=== PATIENT | male | born 1955 | race Hispanic/Latino ===

== ENCOUNTER 2024-12-03 11:43 | Outpatient (CLI) | payer MEDICARE, MEDICAID, SELFPAY ==
--- NOTE | ~2024-12-03 | XR_ITS ---
EXAM/ PROCEDURE: XR shoulder LT min 2V, XR shoulder RT min 2V - 12/03/2024 12:35 CDT HISTORY: 69 years old Male with S46.012A - Strain of muscle(s) and tendon(s) of the rotat... COMPARISON: None available TECHNIQUE: Three view(s) FINDINGS/ IMPRESSION: There are no fractures or dislocations.Joint space narrowing, subchondral sclerosis, subchondral cyst formation and osteophyte formation, compatible with moderate osteoarthritis, right greater than left . Chronic fracture versus os acromiale in the left acromioclavicular joint. Correlate with joint tender ness. Reviewed, dictated and finalized at location A.
--- OUTSIDE RECORDS SUMMARY | 2024-12-03 11:48 | XMS_ITS | Clinical Summary ---
Author Organization [facility] Address [address] [place] [address] Care Team Providers Care Theology Teacher Name Role Phone Antony Song MD Primary Care Provider [phone] Source Comments [facility] [employer],non-owned Affiliates and Associated Physician Practices is amultiple site organization consisting of ambulatory clinics and hospital sitesin [place], [place], [place] and [place]. This disclosure is being madepursuant to the Care Everywhere program and may not contain all information available regarding this patient. Last updated 18.[facility] Allergies Active Allergy Reactions Criticality Noted Date Comments Codeine Nausea and/or Vomiting High 05/09/2018 Hydrocodone Nausea and/or Vomiting High 05/09/2018 Medications * Be aware that medications may not be up to date on this document. Alwaysverify current medications with the patient. montelukast (SINGULAIR) 10 MG tablet montelukast 10 mg tablet Active albuterol (PROVENTIL;VENT RYAN) (2.5 MG/3ML) 0.083% nebulizer solution Inhale 2.5 mg by mouth every 4 hours as needed for Shortness of Breath or Wheezing 100 vial 0 Active albuterol HFA (PROVENTIL;VENT RYAN;PROAIR) 108 (90 Base) MCG/ACT inhaler Inhale 2 puffs by mouth every 4 hours as needed for Shortness of Breath, Wheezing or Cough 1 Inhaler 0 Active beclomethasone HFA (QVAR REDIHALER HFA) 80 MCG/ACT inhaler Inhale 1 puff by mouth 2 times daily 1 Inhaler 0 Active Active Problems Problem Noted Date Diagnosed Date Allergic rhinitis 07/13/2019 Knee pain 07/13/2019 Obesity 07/13/2019 Smoker 07/13/2019 Standard chest x-ray abnormal 07/13/2019 Tinea pedis 07/13/2019 Dental abscess 01/07/2019 Facial cellulitis 01/07/2019 Subacromial impingement of left shoulder 019 Social History Tobacco Use Types Packs/Day Years Used Date Smoking Tobacco: Former Smokeless Tobacco: Never Sex and Gender Information Value Date Recorded Sex Assigned at Not on file Legal 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 Gender Identity Not on file Sexual Orientation Not on file Last Filed Vital Signs Vital Sign Reading Time Taken Comments Blood Pressure 140/80 07/13/2019 3:45 PM TOOL 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 Pulse 105 07/13/2019 3:45 PM TOOL 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 Temperature 37.5 C (99.5 F) 07/13/2019 3:45 PM 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 Respiratory Rate 19 07/13/2019 3:45 PM TOOL 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 Oxygen Saturation 95% 07/13/2019 3:45 PM TOOL 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 Inhaled Oxygen Concentration - - Weight 122.5 kg (270 lb) 07/13/2019 3:45 PM 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 Height 182.9 cm (6') 07/13/2019 3:45 PM 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 Body Mass Index 36.62 07/13/2019 3:45 PM 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 Plan of Treatment Health Maintenance Due Date Last Done Comments COLOGUARD (AGES 45-75) - COL ON CA SCREENING 1957 COLON MONITORING 1957 COLONOSCOPY - COLON CA SCREENING 1957 CT COLONOGRAPHY - COLON CA SCREENING 1957 Colorectal Cancer Screening 1957 FIT - COLON CA SCREENING 1957 FLEX SIG - COLON CA SCREENING 1957 LIPID TESTING 1957 HEPATITIS C SCREENING 07/02/1975 DTAP/TDAP/TD VACCINES (1 - Tdap) 1976 PNEUMOCOCCAL VACCINE 50+ (1 of 1 - PCV) 2007 ZOSTER VACCINE (1 of 2) 2007 SCREENING FOR DIABETES 08/05/2021 9, 08/05/2018 AAA SCREENING 2022 COVID-19 VACCINE (1 - 2023-2 5 season) 2024 DEPRESSION SCREENING 05/14/2024 INFLUENZA VACCINE (#1) 2025 Respiratory Syncytial Virus (RSV) Vaccine Pt: or over 60 yrs (1 - 1-dose 75+ series) 2032 HEPATITIS B VACCINE Aged Out No longe r eligible based on patient's age to complete this topic HIB VACCINE Aged Out No longer eligi ble based on patient's age to complete this topic HPV VACCINE Aged Out No longer eligi ble based on patient's age to complete this topic MENINGOCOCCAL (Group B) VACCINE SHARED DECISION-MAKING Aged Out No longer eligible based on patient's age to complete this topic MENINGOCOCCAL GROUPS A/C/Y/W VACCINE Aged Out No longer eligible b ased on patient's age to complete this topic Insurance Care Teams Theology Teacher Relationship Specialty Start Date End Date Antony oSng MD [address] [place] [id number] PCP - General Family Medicine 07/06/19
--- OUTSIDE RECORDS SUMMARY | 2024-12-03 11:48 | XMS_ITS | Encounter Summary ---
Author Organization [facility] Address [address] [place] [address] Care Team Providers Care Shellfish Meat Separator Operator Name Role Phone Antony Song MD Primary Care Provider [phone] Miscellaneous, Not In File Primary Care Provider Unavailable Antony Song MD Primary Care Provider [phone] Maurisio Sevilla MD Primary Care Provider [phone] Antony Song MD Unavailable [phone] Kevon Hogan MD Unavailable [phone] Eddie Baker MD Primary Care Provider [phone] Eddie Baker MD Primary Care Provider [phone] Julio Gaston MD Primary Care Provider [phone] Rosette Florence DO Unavailable [phone] Rusty Lam MD Unavailable [phone] Maria De Jesus Kaur PT Unavailable Unavailable Rickie Aleman MD Primary Care Provider [phone] Reason for Visit * Reason Onset Date Comments Scheduling Appointments 11/30/2020 no answdeena r to confirm injection Encounter Details Date Type Department Care Team (Late st Contact Info) Description 11/30/2020 Telephone [facility] [address] [place] [address] Paula Palma RT Scheduling Appointments (no answer to confirm injection) Social History Tobacco Use Types Packs/Day Years Used Date Smoking Tobacco: Former Cigarettes Smokeless Tobacco: Never Alcohol Use Standard Drinks/Week Comments Not Currently 0 (1 standard drink = 0.6 oz pur e alcohol) Sex and Gender Information Value Date Recorded Sex Assigned at Not on file 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 Gender Identity Not on file Sexual Orientation Not on file documented as of this encounter Plan of Treatment Upcoming Encounters Date Type Department Care Team (Late st Contact Info) Description 12/04/2024 1:30 PM CDT Hospital Encounter [facility] [address] [place] [id number] documented as of this encounter Visit Diagnoses Not on filedocumented in this encounter Additional Health Concerns Infection Onset Date Last Indicated Resolved Time COVID: Suspected 05/09/2021 05/09/2021 05/09/2021 8:54 AM MEDICAL SALES ASSOCIATE COVID: Suspected 06/08/2021 06/08/2021 06/08/2021 2:16 PM MEDICAL SALES ASSOCIATE COVID: Suspected 11/30/2021 11/30/2021 11/30/2021 11:57 PM CDT COVID: Suspected 04/17/2024 04/17/2024 04/17/2024 3:04 PM MEDICAL SALES ASSOCIATE documented as of this encounter Care Teams Shellfish Meat Separator Operator Relationship Specialty Start Date End Date Antony Song MD PCP - General 08/11/16 03/20/21 Miscellaneous, Not In File PCP - General 03/21/21 03/21/21 Antony Song MD PCP - General 03/22/21 05/08/21 Maurisio Sevilla MD [address] [place] [id number] PCP - General 05/09/21 05/25/21 Eddie Baker MD [address] [address] PCP - General Family Medicine 05/26/21 06/19/21 Eddie Baker MD 2 [facility] [place] [address] [address] PCP - General Family Medicine 06/20/21 09/22/21 Julio Gaston MD 2 [facility] [place] [address] [address] PCP - General Internal Medicine 09/23/21 01/27/24 Rickie Aleman MD [address] [facility] [place] [address] [place] [address] PCP - General Family Medicine 01/28/24 Antony Song MD 05/09/21 09/22/21 Kevon Hogan MD [address] [place] [id number] Surgeon Orthopedic Surgery 03/23/21 Rosette Florence DO [address] [place] [address] Consulting Physician Internal Medicine 12/03/21 Rusty Lam MD [address] [place] [address] Consulting Physician Cardiology 12/15/21 Maria De Jesus Kaur, SAL[place]OR Physical Therapist Physical Therapy 01/03/22 documented as of this encounter
--- OUTSIDE RECORDS SUMMARY | 2024-12-03 11:48 | XMS_ITS ---
Author Organization [facility] ([address]) Address [address] [place] [address] Care Team Providers Care Director Cpg Name Role Phone Julio Gaston Primary Care Provider UnavailDr. Ruslan Rodriguez Unavailable [phone] Esme Combs Unavailable [phone] Allergies Allergen (clinical drug ingredient) Drug/Non Drug Allergy documented on EMR Reaction Allergy Type Onset Date Status codeine Codeine stomach upset Drug Allergy Act marianne REASON FOR VISIT NO SHOW Medications Medication SIG (Take, Route, Frequency, Duration) Notes Start Date End Date Status Furosemide 20 MG 1 tab(s) orally once a day Active Aspirin 81 MG 1 tab(s) orally once a day Active Atorvastatin Calcium *Please rev iew and pick correct strength-formulatio n from [employer] options. If intended option is not shown, discontinue and re-order from Quick Search* Active Carvedilol *Please review a nd pick correct strength-formulatio n from [employer] options. If intended option is not shown, discontinue and re-order from Quick Search* Active Amitriptyline HCl 10 MG 2 tabs at bedtime orally as directed; Duration: 30 days 06/28/2023 Active busPIRone HCl *Please review a nd pick correct strength-formulatio n from [employer] options. If intended option is not shown, discontinue and re-order from Quick Search* Active Albuterol Sulfate *Please review and pick correct strength-formulatio n from [employer] options. If intended option is not shown, discontinue and re-order from Quick Search* Active FUROSEMIDE 20 mg 1 tab(s) orally once a day Active ASPIRIN 81 mg 1 tab(s) orally once a day Active ATORVASTATIN Active ALBUTEROL Active CARVEDILOL Active BUSPIRONE Active Problems Problem Type SNOMED Code ICD Code Onset Dates Problem Status W/U Status Risk Notes Problem Chronic migraine without aura, not intractable, without status migrainosus (G43.709) Active confirmed Problem Migraine with aura (2283344) Migraine with aura, not intractable, without status migrainosus (G43.109) Active confirmed Problem Chronic migraine without aura, non-refractor y (disorder) ([id number] 100) Migraine without aura, not intractable, without status migrainosus (G43.009) Active confirmed Encounters Encounter Location Date Provider Diagnosis [facility] [address] [address] 04/17/2024 Esme Combs Postconcussional syndrome F07.81 ; Diffuse traumatic brain injury with loss of consciousness greater than 24 hours with return to pre-existing conscious levels, sequela S06.2X5S ; Dizziness and giddiness R42 ; Post-traumatic headache, unspecified, not intractable G44.309 ; Cervicogenic headache G44.86 ; Other cervical disc degeneration, unspecified cervical region M50.30 ; Essential tremor G25.0 and Abnormal brain scan R94.02 Assessments Encounter Date Diagnosis (ICD Code) Assessment Notes Treatment Notes Treatment Clinical Notes Section Notes 04/17/2024 Postconcussional syndrome (ICD-10 - F07.81) Clinically, ther e are several issues present: 1) mTBI with post-concussion syndrome, prolonged. 2) Essential tremor phenotype without parkinsonian features. 3) Mild peripheral neuropathy, likely related to diabetes. 4) Gait imbalance, likely a combination of peripheral neuropathy and vestibular impairment due to post-concussion syndrome. 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 These findings indicate remote/prior cerebral ischemia that occurred in the posterrior circulation, and do not correlate with the TBI, unclear if this happened during his prior cardiac arrest, he doesn't provide a clinical history of a stroke event. He discussed trying to improve his headaches and vestibular symptoms. We discussed further screening for cerebrovascular disease. 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 2) Essential tremor phenotype without parkinsonian features. 3) Mild peripheral neuropathy, likely related to diabetes. 4) Gait imbalance, likely a combination of peripheral neuropathy and vestibular impairment due to post-concussion syndrome. 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 These findings indicate remote/prior cerebral ischemia that occurred in the posterrior circulation, and do not correlate with the TBI, unclear if this happened during his prior cardiac arrest, he doesn't provide a clinical history of a stroke event. He discussed trying to improve his headaches and vestibular symptoms. We discussed further screening for cerebrovascular disease. He has had a recent echocardiogram which was unremarkable, I would recommend carotid doppler screening and a 30-day card game operator to evaluate for asymptomatic PAFib, as well as vascular risk reduction 04/17/2024 Dizziness and giddiness (ICD-10 - R42) Clinically, ther e are several issues present: 1) mTBI with post-concussion syndrome, prolonged. 2) Essential tremor phenotype without parkinsonian features. 3) Mild peripheral neuropathy, likely related to diabetes. 4) Gait imbalance, likely a combination of peripheral neuropathy and vestibular impairment due to post-concussion syndrome. 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 These findings indicate remote/prior cerebral ischemia that occurred in the posterrior circulation, and do not correlate with the TBI, unclear if this happened during his prior cardiac arrest, he doesn't provide a clinical history of a stroke event. He discussed trying to improve his headaches and vestibular symptoms. We discussed further screening for cerebrovascular disease. He has had a recent echocardiogram which was unremarkable, I would recommend carotid doppler screening and a 30-day card game operator to evaluate for asymptomatic PAFib, as well as vascular risk reduction 04/17/2024 Post-traumatic headache, unspecified, not intractable (ICD-10 - G44.309) Clinically, ther e are several issues present: 1) mTBI with post-concussion syndrome, prolonged. 2) Essential tremor phenotype without parkinsonian features. 3) Mild peripheral neuropathy, likely related to diabetes. 4) Gait imbalance, likely a combination of peripheral neuropathy and vestibular impairment due to post-concussion syndrome. 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 These findings indicate remote/prior cerebral ischemia that occurred in the posterrior circulation, and do not correlate with the TBI, unclear if this happened during his prior cardiac arrest, he doesn't provide a clinical history of a stroke event. He discussed trying to improve his headaches and vestibular symptoms. We discussed further screening for cerebrovascular disease. He has had a recent echocardiogram which was unremarkable, I would recommend carotid doppler screening and a 30-day card game operator to evaluate for asymptomatic PAFib, as well as vascular risk reduction 04/17/2024 Cervicogenic headache (ICD-10 - G44.86) Clinically, ther e are several issues present: 1) mTBI with post-concussion syndrome, prolonged. 2) Essential tremor phenotype without parkinsonian features. 3) Mild peripheral neuropathy, likely related to diabetes. 4) Gait imbalance, likely a combination of peripheral neuropathy and vestibular impairment due to post-concussion syndrome. 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 These findings indicate remote/prior cerebral ischemia that occurred in the posterrior circulation, and do not correlate with the TBI, unclear if this happened during his prior cardiac arrest, he doesn't provide a clinical history of a stroke event. He discussed trying to improve his headaches and vestibular symptoms. We discussed further screening for cerebrovascular disease. He has had a recent echocardiogram which was unremarkable, I would recommend carotid doppler screening and a 30-day card game operator to evaluate for asymptomatic PAFib, as well as vascular risk reduction 04/17/2024 Other cervical disc degeneration, unspecified cervical region (ICD-10 - M50.30) Clinically, th ere are several issues present: 1) mTBI with post-concussion syndrome, prolonged. 2) Essential tremor phenotype without parkinsonian features. 3) Mild peripheral neuropathy, likely related to diabetes. 4) Gait imbalance, likely a combination of peripheral neuropathy and vestibular impairment due to post-concussion syndrome. 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 These findings indicate remote/prior cerebral ischemia that occurred in the posterrior circulation, and do not correlate with the TBI, unclear if this happened during his prior cardiac arrest, he doesn't provide a clinical history of a stroke event. He discussed trying to improve his headaches and vestibular symptoms. We discussed further screening for cerebrovascular disease. He has had a recent echocardiogram which was unremarkable, I would recommend carotid doppler screening and a 30-day card game operator to evaluate for asymptomatic PAFib, as well as vascular risk reduction 04/17/2024 Essential tremor (ICD-10 - G25.0) Clinically, the re are several issues present: 1) mTBI with post-concussion syndrome, prolonged. 2) Essential tremor phenotype without parkinsonian features. 3) Mild peripheral neuropathy, likely related to diabetes. 4) Gait imbalance, likely a combination of peripheral neuropathy and vestibular impairment due to post-concussion syndrome. 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 These findings indicate remote/prior cerebral ischemia that occurred in the posterrior circulation, and do not correlate with the TBI, unclear if this happened during his prior cardiac arrest, he doesn't provide a clinical history of a stroke event. He discussed trying to improve his headaches and vestibular symptoms. We discussed further screening for cerebrovascular disease. He has had a recent echocardiogram which was unremarkable, I would recommend carotid doppler screening and a 30-day card game operator to evaluate for asymptomatic PAFib, as well as vascular risk reduction 04/17/2024 Abnormal brain scan (ICD-10 - R94.02) Clinically, th ere are several issues present: 1) mTBI with post-concussion syndrome, prolonged. 2) Essential tremor phenotype without parkinsonian features. 3) Mild peripheral neuropathy, likely related to diabetes. 4) Gait imbalance, likely a combination of peripheral neuropathy and vestibular impairment due to post-concussion syndrome. 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 These findings indicate remote/prior cerebral ischemia that occurred in the posterrior circulation, and do not correlate with the TBI, unclear if this happened during his prior cardiac arrest, he doesn't provide a clinical history of a stroke event. He discussed trying to improve his headaches and vestibular symptoms. We discussed further screening for cerebrovascular disease. He has had a recent echocardiogram which was unremarkable, I would recommend carotid doppler screening and a 30-day card game operator to evaluate for asymptomatic PAFib, as well as vascular risk reduction Plan Of Treatment Next Appt Details Follow Up: , Reason: Evaluat ion and Management Progress Notes * LORIJaron LDOB:[birth year] (69 yo M)Acc No.[id number]:04/17/2024 Progress Notes Patient: Shruthi KLELEEJaron BAZZI Provider: Perfecto Combs APRN :1955 A ge:68 Y S ex:Male Date:04/17/2024 Address:[address] [place], [place] [id number] Pcp:Julio Gaston Subjective: * Chief Complaints: * 1 . NO SHOW. * ROS: C ONSTITUTIONAL: Positive for P atient denies fevers, chills, sweats, unintended weight loss, loss of appetite. Patient endorses chronic fatigue. E NT: Positive P atient denies ear fullness or pain or sinus pain. R ESPIRATORY: Positive for P atient denies shortness of breath or wheezing. O PHTHALMOLOGY: Positive for R eviewed and except as mentioned above in the HPI is negative. E NDOCRINOLOGY: Positive for P atient denies heat intolerance, cold intolerance, polyuria. He does have history of diabetes. C ARDIOLOGY: Positive for P atient denies dizziness, palpitations, or chest pain. G ASTROENTEROLOGY: Positive for P atient denies diarrhea, melena, bloody stools, or abdominal pain. U ROLOGY: Positive for P atient denies urinary incontinence or urinary dysfunction. D ERMATOLOGY: Positive for P atient denies rash or hives. ? N EUROLOGY: Positive for R eviewed and except as mentioned above in the HPI is negative. H EMATOLOGY/LYMPH: Positive for P atient denies history of excessive bruising or bleeding diasthesis. M USCULOSKELETAL: Positive for B ilateral shoulder pain and reduced ROM. Occasional bilateral knee pain. Neck pain. P SYCHOLOGY: Positive for R eviewed and except as discussed above in the HPI is otherwise negative. * Medical History: O besity, DM2, HLD, HTN, CAD, COPD, SHONDA on BiPAP, AAA, OA, Cervical DDD, mTBI as above. * Surgical History: R TKA , L TKA , L MECCA . * Family History: He did not report a family history of tremors or dementia. * Social History: Former smoker for many years, reports that he quit 6 years ago. Denies any significant EtOH use. Denies recreational drug use. He is retired. * Medications: T aking ALBUTEROL , Taking BUSPIRONE , Taking CARVEDILOL , Taking ATORVASTATIN , Taking ASPIRIN 81 mg delayed release tablet 1 tab(s) orally once a day , Taking FUROSEMIDE 20 mg tablet 1 tab(s) orally once a day , Taking Albuterol Sulfate , Notes to Pharmacist: *Please review and pick correct strength-formulation from [employer] options. If intended option is not shown, discontinue and re-order from Quick Search*, Taking busPIRone HCl , Notes to Pharmacist: *Please review and pick correct strength-formulation from [employer] options. If intended option is not shown, discontinue and re-order from Quick Search*, Taking Carvedilol , Notes to Pharmacist: *Please review and pick correct strength-formulation from [employer] options. If intended option is not shown, discontinue and re-order from Quick Search*, Taking Atorvastatin Calcium , Notes to Pharmacist: *Please review and pick correct strength-formulation from [employer] options. If intended option is not shown, discontinue and re-order from Quick Search*, Taking Aspirin 81 MG Tablet Delayed Release 1 tab(s) orally once a day , Taking Furosemide 20 MG Tablet 1 tab(s) orally once a day , Taking Amitriptyline HCl 10 MG Tablet 2 tabs at bedtime orally as directed * Allergies: C odeine: stomach upset. Objective: * Vitals: * Examination: G eneral examination: General appearance: P leasant, well-developed, no distress.? HEENT: P hotophobic, wearing sunglasses. Oral cavity: N ormal, no lesions. Neck, thyroid : S upple, non-tender, no anterior cervical lymphadenopathy. Heart: R RR, S1-S2, no murmurs. Lungs: C lear to auscultation and percussion in all lung james. Abdomen: O bese, soft, NT/ND, normal active bowel sounds.? Neurologic exam: A lert and oriented x 4. Fluent speech. Mildly irritable at times during the interview. PERRL. EOMI without nystagmus; however, he has convergence insufficiency. No visual field cut. Facial sensation intact to light touch and pinprick in bilateral V1/V2/V3. Facial movements normal and symmetric. Hearing intact to conversation. Palate symmetrically upgoing. Tongue midline. Motor 5/5 strength in all extremities, except for antalgic weakness of the left > right shoulders and inconsistent give-way weakness of the left UE. Normal tone in extremities. Reflexes 2/2 and symmetric in all extremities, except for 1+/2 ankle jerks. Bilateral flexor plantar responses. Sensory exam showed absent vibration sensation in left great toe, reduced vibration sensation in right great toe, diminished pin in distal to proximal gradient affecting feet and ankles bilaterally. Cerebellar exam shows no rest tremor, mild to moderate right and slight left postura/ action tremor, no ataxia. Difficulty standing with narrow base with eyes open or closed, but worse with eyes closed, cannot tandem, gait is unstable and antalgic.? Skin: N ormal, no rash, urticaria, angioedema. Back: M ildly reduced cervical spine ROM. Extremities: S evere reduced ROM both shoulders L > R.? Assessment: * Assessment: 1. D iffuse traumatic brain injury with loss of consciousness greater than 24 hours with return to pre-existing conscious levels, sequela - S06.2X5S (Primary) 2 . P ostconcussional syndrome - F07.81 3 . D izziness and giddiness - R42 4 . Post-traumatic headache, unspecified, not intractable - G44.309 5 . C ervicogenic headache - G44.86 6 . O ther cervical disc degeneration, unspecified cervical region - M50.30 7 . E ssential tremor - G25.0 8 . A bnormal brain scan - R94.02 Clinically, there are severa l issues present: 1) mTBI with post-concussion syndrome, prolonged. 2) Essential tremor phenotype without parkinsonian features. 3) Mild peripheral neuropathy, likely related to diabetes. 4) Gait imbalance, likely a combination of peripheral neuropathy and vestibular impairment due to post- concussion syndrome. 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 These findings indicate remote/prior cerebral ischemia that occurred in the posterrior circulation, and do not correlate with the TBI, unclear if this happened during his prior cardiac arrest, he doesn't provide a clinical history of a stroke event. He discussed trying to improve his headaches and vestibular symptoms. We discussed further screening for cerebrovascular disease. He has had a recent echocardiogram which was unremarkable, I would recommend carotid doppler screening and a 30-day card game operator to evaluate for asymptomatic PAFib, as well as vascular risk reduction. Plan: * Treatment: * Procedure Codes: 9 6160 PT-FOCUSED HLTH RISK ASSMT, G8427 DOC MEDS VERIFIED W/PT OR RE, G2211 Complex e/m visit add on * Follow Up: Christy arana: Evaluation and Management * Billing Information: * Visit Code: 71964 Office Visit, Est Pt., Level 4. Modifiers: 67314 Office Visit, Est Pt., Level 3. Modifiers: 46232 Office Visit, Est Pt., Level 5. Modifiers: 25 * Procedure Codes: 98579 PT-FOCUSED HLTH RISK ASSMT. G8427 DOC MEDS VERIFIED W/PT OR RE. G2211 Complex e/m visit add on. * Electronic signature of LUIS Gutierrez-[place] on 12/03/2024 at 11:48 AM CDT Sign off status: Pending * Provider: Perfecto Combs APRN Date: 06/18/2023 Generated for Mau caldwell/Inez/eTransmitting on: 0 12/03/2024 11:48 AM CDT History and Physical Notes * Examination Category Sub-Category Detail Notes Category Not es General examination HEENT: Photophobic, wearing sunglasses Neck, thyroid : Supple, non-tender, no anterior cervical lymphadenopathy Heart: RRR, S1-S2, no murmu rs Lungs: Clear to auscultatio n and percussion in all lung james Abdomen: Obese, soft, NT/ND, normal active bowel sounds Extremities: Severe reduced ROM b oth shoulders L > R General appearance: Pleasant, well-devel oped, no distress Skin: Normal, no rash, urt icaria, angioedema Neurologic exam: Alert and oriented x 4. Fluent speech. Mildly irritable at times during the interview. PERRL. EOMI without nystagmus; however, he has convergence insufficiency. No visual field cut. Facial sensation intact to light touch and pinprick in bilateral V1/V2/V3. Facial movements normal and symmetric. Hearing intact to conversation. Palate symmetrically upgoing. Tongue midline. Motor 5/5 strength in all extremities, except for antalgic weakness of the left > right shoulders and inconsistent give-way weakness of the left UE. Normal tone in extremities. Reflexes 2/2 and symmetric in all extremities, except for 1+/2 ankle jerks. Bilateral flexor plantar responses. Sensory exam showed absent vibration sensation in left great toe, reduced vibration sensation in right great toe, diminished pin in distal to proximal gradient affecting feet and ankles bilaterally. Cerebellar exam shows no rest tremor, mild to moderate right and slight left postura/ action tremor, no ataxia. Difficulty standing with narrow base with eyes open or closed, but worse with eyes closed, cannot tandem, gait is unstable and antalgic Oral cavity: Normal, no lesions Back: Mildly reduced cervi ingrid spine ROM
--- OUTSIDE RECORDS SUMMARY | 2024-12-03 11:48 | XMS_ITS | Encounter Summary ---
Author Organization [facility] Healthcare Address [address] [place] [address] Care Team Providers Care Adobe Ball Mixer Name Role Phone Antony Song MD Primary Care Provider [phone] Miscellaneous, Not In File Primary Care Provider Unavailable Antony Song MD Primary Care Provider [phone] Maurisio Sevilla MD Primary Care Provider [phone] Antony Song MD Unavailable [phone] Kevon Hogan MD Unavailable [phone] Eddie Baker MD Primary Care Provider [phone] Eddie Baker MD Primary Care Provider [phone] Julio Gaston MD Primary Care Provider [phone] Rosette Florence DO Unavailable [phone] Rusty Lam MD Unavailable [phone] Maria De Jesus Kaur PT Unavailable Unavailable Rickie Aleman MD Primary Care Provider [phone] Encounter Details Date Type Department Care Team (Late st Contact Info) Description 08/05/2020 Telephone [facility] [address] [place] [address] Danay Martin, RT Social History Tobacco Use Types Packs/Day Years Used Date Smoking Tobacco: Former Cigarettes Smokeless Tobacco: Never Alcohol Use Standard Drinks/Week Comments Not Currently 0 (1 standard drink = 0.6 oz pur e alcohol) Sex and Gender Information Value Date Recorded Sex Assigned at Not on file Legal Sex Male 1:38 AM DIGESTER Gender Identity Not on file Sexual Orientation Not on file documented as of this encounter Plan of Treatment Upcoming Encounters Date Type Department Care Team (Late st Contact Info) Description 12/04/2024 1:30 PM CDT Hospital Encounter [facility] [address] [place] [address] documented as of this encounter Visit Diagnoses Not on filedocumented in this encounter Additional Health Concerns Infection Onset Date Last Indicated Resolved Time COVID: Suspected 05/09/2021 05/09/2021 05/09/2021 8:54 AM DIGESTER COVID: Suspected 06/08/2021 06/08/2021 06/08/2021 2:16 PM DIGESTER COVID: Suspected 11/30/2021 11/30/2021 11/30/2021 11:57 PM CDT COVID: Suspected 04/17/2024 04/17/2024 04/17/2024 3:04 PM DIGESTER documented as of this encounter Care Teams Adobe Ball Mixer Relationship Specialty Start Date End Date Antony Song MD PCP - General 08/11/16 03/20/21 Miscellaneous, Not In File PCP - General 03/21/21 03/21/21 Antony Song MD PCP - General 03/22/21 05/08/21 Maurisio Sevilla MD [address] [place] [address] [address] [place] [address] PCP - General 05/09/21 05/25/21 Eddie Baker MD 2 [facility] [address] [place] [address] PCP - General Family Medicine 05/26/21 06/19/21 Eddie Baker MD 2 [facility] [address] [place] [address] PCP - General Family Medicine 06/20/21 09/22/21 Julio Gaston MD 2 [facility] PAMELA SANJIV [facility] [address] [place] [address] PCP - General Internal Medicine 09/23/21 01/27/24 Rickie Aleman MD [address] [facility] [address] [place] [place] [address] PCP - General Family Medicine 01/28/24 Antony Song MD 05/09/21 09/22/21 Kevon Hogan MD [address] [place] [address] Surgeon Orthopedic Surgery 03/23/21 Rosette Florence DO [address] [facility] [place] [address] Consulting Physician Internal Medicine 12/03/21 Rusty Lam MD [address] [facility] [place] [address] Consulting Physician Cardiology 12/15/21 Maria De Jesus Kaur, SALVADOR Physical Therapist Physical Therapy 01/03/22 documented as of this encounter
--- OUTSIDE RECORDS SUMMARY | 2024-12-03 11:48 | XMS_ITS | Encounter Summary ---
Author Organization [facility] Address [address] [place] [address] Care Team Providers Care Industrial Chemicals Supervisor Name Role Phone Antony Song MD Primary Care Provider [phone] Miscellaneous, Not In File Primary Care Provider Unavailable Antony Song MD Primary Care Provider [phone] Maurisio Sevilla MD Primary Care Provider [phone] Antony Snog MD Unavailable [phone] Kevon Hogan MD Unavailable [phone] Eddie Baker MD Primary Care Provider [phone] Eddie Baker MD Primary Care Provider [phone] Julio Gaston MD Primary Care Provider [phone] Rosette Florence DO Unavailable [phone] Rusty Lam MD Unavailable [phone] Maria De Jesus Kaur PT Unavailable Unavailable Rickie Aleman MD Primary Care Provider [phone] Reason for Visit * Reason Onset Date Comments Scheduling Appointments 08/19/2020 in Encounter Details Date Type Department Care Team (Late st Contact Info) Description 08/19/2020 Telephone [facility] [address] [place] [address] Juliana Urban RT Scheduling Appointments (in) Social History Tobacco Use Types Packs/Day Years Used Date Smoking Tobacco: Former Cigarettes Smokeless Tobacco: Never Alcohol Use Standard Drinks/Week Comments Not Currently 0 (1 standard drink = 0.6 oz pur e alcohol) Sex and Gender Information Value Date Recorded Sex Assigned at Not on file Legal Sex Male 1:38 AM PHYSICIAN PRIMARY CARE SPORTS MEDICINE Gender Identity Not on file Sexual Orientation Not on file documented as of this encounter Plan of Treatment Upcoming Encounters Date Type Department Care Team (Late st Contact Info) Description 12/04/2024 1:30 PM CDT Hospital Encounter [facility] 1 [place] [address] documented as of this encounter Visit Diagnoses Not on filedocumented in this encounter Additional Health Concerns Infection Onset Date Last Indicated Resolved Time COVID: Suspected 05/09/2021 05/09/2021 05/09/2021 8:54 AM PHYSICIAN PRIMARY CARE SPORTS MEDICINE COVID: Suspected 06/08/2021 06/08/2021 06/08/2021 2:16 PM PHYSICIAN PRIMARY CARE SPORTS MEDICINE COVID: Suspected 11/30/2021 11/30/2021 11/30/2021 11:57 PM CDT COVID: Suspected 04/17/2024 04/17/2024 04/17/2024 3:04 PM PHYSICIAN PRIMARY CARE SPORTS MEDICINE documented as of this encounter Care Teams Industrial Chemicals Supervisor Relationship Specialty Start Date End Date Antony Song MD PCP - General 08/11/16 03/20/21 Miscellaneous, Not In File PCP - General 03/21/21 03/21/21 Antony Song MD PCP - General 03/22/21 05/08/21 Maurisio Sevilla MD [address] [place] [address] PCP - General 05/09/21 05/25/21 Eddie Baker MD [address] [address] PCP - General Family Medicine 05/26/21 06/19/21 Eddie Baker MD 2 [facility] [address] [address] PCP - General Family Medicine 06/20/21 09/22/21 Julio Gaston MD 2 [facility] [address] [address] PCP - General Internal Medicine 09/23/21 01/27/24 Rickie Aleman MD [address] [facility] [address] [place] [address] [place] [address] PCP - General Family Medicine 01/28/24 Antony Song MD 05/09/21 09/22/21 Kevon Hogan MD [address] [place] [address] Surgeon Orthopedic Surgery 03/23/21 Rosette Florence DO [address] [facility] [place] [address] Consulting Physician Internal Medicine 12/03/21 Rusty Lam MD [address] [facility] [place] [address] Consulting Physician Cardiology 12/15/21 Maria De Jesus Kaur, PT Physical Therapist Physical Therapy 01/03/22 documented as of this encounter
--- OUTSIDE RECORDS SUMMARY | 2024-12-03 11:49 | XMS_ITS | Patient Health Record ---
Author Organization [facility] Address [address] [facility] [address] [place] [address] Care Team Providers Care Director Marketing Analytics Name Role Phone Edwige Carl Unavailable [phone] Reason For Referral No Information Medications Medication SIG (Take, Route, Frequency, Duration) Notes Start Date End Date Status Ibuprofen 800 MG Oral Act marianne predniSONE 20 MG Oral Act marinane predniSONE 50 MG Oral Act marianne Carvedilol 12.5 MG Oral A ctive Ipratropium-Albuterol 0.5-2.5 (3) MG/3ML Inhalation Active Naproxen 500 MG Oral Acti ve Amoxicillin-Pot Clavulanate 875-125 MG Oral Active Azithromycin 250 MG Oral Active Albuterol Sulfate (2.5 MG/3ML) 0.083% Inhalation Active Gabapentin 300 MG Oral Ac tive metOLazone 2.5 MG Oral Ac tive Montelukast Sodium 10 MG Oral Active hydrOXYzine Pamoate 25 MG Oral Active Amitriptyline HCl 10 MG Oral Active Clindamycin HCl 300 MG Oral Active Symbicort 160-4.5 MCG/ACT Inhalation Active Furosemide 40 MG Oral Act marianne busPIRone HCl 5 MG Oral A ctive Atorvastatin Calcium 80 MG Oral Active OneTouch Verio In Vitro Activ e ProAir HFA 108 (90 Base) MCG/ACT Inhalation Active Plan Of Treatment No Information Insurance Providers Payer Name Payer Address Payer Phone Subscriber Number Group Number Insured Name Patient Relationship to Insured Coverage Start Date Coverage End Date [facility] Medicare Replacement/ Advantage - Ppo [address] [address] [place] [address] [id number] HAYLEY CRAIG Self - patient is the insured
--- OUTSIDE RECORDS SUMMARY | 2024-12-03 11:49 | XMS_ITS | Encounter Summary ---
Author Organization [facility] Address [address] [place] [address] Phone Care Team Providers Care Loader Operator Supervisor Name Role Phone Eddie Baker MD Primary Care Provider [phone] Provider, None Primary Care Provider Julio Small MD Primary Care Provider [phone] Rickie Aleman MD Primary Care Provider [phone] Reason for Visit * Reason Comments Medication Refill Encounter Details Date Type Department Care Team (Late st Contact Info) Description 07/21/2021 Refill [facility] - Family Medicine [facility] [address] [place] [address] Eddie Baker MD #[address] [address] Medication Refill Social History Tobacco Use Types Packs/Day Years Used Date Smoking Tobacco: Former Cigarettes Q uit: 04/11/2019 Smokeless Tobacco: Former Alcohol Use Standard Drinks/Week Comments No 0 (1 standard drink = 0.6 oz pur e alcohol) Sexually Active Control Partners Comments Yes Female Sex and Gender Information Value Date Recorded Sex Assigned at Not on file Legal Sex Male 3:07 AM PUMPER GAGER APPRENTICE Gender Identity Not on file Sexual Orientation Not on file COVID-19 Exposure Response Date Recorded In the last month, have you been in contact with someone who was confirmed or suspected to have Coronavirus / COVID-19? No / Unsure 07/05/2021 2:36 PM PUMPER GAGER APPRENTICE documented as of this encounter Miscellaneous Notes * Telephone Encounter - Karyna Tovar RN - 07/22/2021 10:29 AM CST Medication failed the protocol, provider to review and approve the medication order if appropriate. Requested Prescriptions Pending Prescriptions Disp Refills busPIRone (BUSPAR) 10 MG Tablet [Pharmacy Med Name: BUSPIRONE HCL 10 MG TABLET] 60 Tablet 2 Sig: TAKE 1 TABLET BY MOUTH TWICE A DAY Buspirone (6 Month Refill Only) Protocol Passed - 07/21/2021 3:31 PM Passed - Visit with relevant provider in past 6 months or upcoming 90 days Recent Visits Date Type Provider Dept 06/01/21 Office Visit Eddie Baker MD [facility] 03/01/21 Office Visit Eddie Baker MD [facility] Showing recent visits within past 182 days and meeting all other requirements Future Appointments Date Type Provider Dept 08/05/21 Appointment Eddie Baker MD [facility] Showing future appointments within next 90 days and meeting all other requirements Passed - Has an encounter in the past 6 months with a depression or anxiety visit diagnosis Passed - Patient has established therapy with Buspirone for at least 6 months albuterol 108 (90 Base) MCG/ACT Aerosol Solution [Pharmacy Med Name: ALBUTEROL HFA (VENTOLIN) INH] 18 g 2 Sig: INHALE 2 PUFFS BY MOUTH EVERY 4 HOURS Short Acting Inhaled Beta-Agonists Protocol Passed - 07/21/2021 3:31 PM Passed - Visit with relevant provider in past 12 months or upcoming 90 days Recent Visits Date Type Provider Dept 06/01/21 Office Visit Eddie Baker MD [facility] 03/01/21 Office Visit Eddie Baker MD [facility] 10/25/20 Office Visit Eddie Baker MD [facility] 07/22/20 Office Visit Eddie Baker MD [facility] Showing recent visits within past 365 days and meeting all other requirements Future Appointments Date Type Provider Dept 08/05/21 Appointment Eddie Baker MD [facility] Showing future appointments within next 90 days and meeting all other requirements meloxicam (MOBIC) 15 MG Tablet [Pharmacy Med Name: MELOXICAM 15 MG TABLET] 30 Tablet 1 Sig: TAKE 1 TABLET BY MOUTH EVERY DAY WITH FOOD NSAIDs Protocol Failed - 07/21/2021 3:31 PM Failed - Normal serum creatinine in past 12 months CREATININE, BLOOD Date Value Ref Range Status 07/05/2021 1.48 (H) 0.80 - 1.30 mg/dL Final Passed - Visit with relevant provider in past 12 months or upcoming 90 days Recent Visits Date Type Provider Dept 06/01/21 Office Visit Eddie Baker MD [facility] 03/01/21 Office Visit Eddie Baker MD [facility] 10/25/20 Office Visit Eddie Baker MD [facility] 07/22/20 Office Visit Eddie Baker MD [facility] Showing recent visits within past 365 days and meeting all other requirements Future Appointments Date Type Provider Dept 08/05/21 Appointment Eddie Baker MD [facility] Showing future appointments within next 90 days and meeting all other requirements Passed - No matching NSAID med order in past 45 days No matching medication orders between 06/07/2021 10:29 AM and 07/22/2021 10:29 AM Passed - AST less than 55 or ALT less than 90 in past 12 months SGOT (AST) Date Value Ref Range Status 07/05/2021 19 <=40 U/L Final SGPT (ALT) Date Value Ref Range Status 07/05/2021 25 <=41 U/L Final Passed - HGB greater than 10 or HCT greater than 30 in past 12 months HEMOGLOBIN (HGB) Date Value Ref Range Status 07/05/2021 14.3 13.0 - 16.5 g/dL Final HEMATOCRIT (HCT) Date Value Ref Range Status 07/05/2021 41.7 38.0 - 50.0 % Final ER GAGER APPRENTICE documented in this encounter Plan of Treatment Not on file documented as of this encounter Visit Diagnoses Not on filedocumented in this encounter Additional Health Concerns Infection Onset Date Last Indicated Resolved Time COVID - 19 04/04/2022 04/04/2022 04/04/2022 1:54 PM PUMPER GAGER APPRENTICE COVID - 19 04/04/2022 04/04/2022 04/14/2022 12:1 9 AM PUMPER GAGER APPRENTICE COVID - 19 10/22/2024 10/22/2024 10/22/2024 1:38 PM CDT documented as of this encounter Care Teams Loader Operator Supervisor Relationship Specialty Start Date End Date Eddie Baker MD #2 [facility] [address] [place] [address] PCP - General Family Medicine 04/16/20 08/01/21 Provider, None [place] PCP - General 08/02/21 10/18/21 Julio Gaston MD [place] PCP - General Internal Medicine 10/19/21 03/12/24 Rickie Aleman MD 2 [facility] [address] [place] [address] PCP - General Gift Shop Clerk 03/13/24 documented as of this encounter
--- OUTSIDE RECORDS SUMMARY | 2024-12-03 11:49 | XMS_ITS | Encounter Summary ---
Author Organization [facility] Address [address] [place] [address] Phone Care Team Providers Care Housing Assistant Name Role Phone Julio Gaston MD Primary Care Provider [phone] Rickie Aleman MD Primary Care Provider [phone] Reason for Visit * Reason Comments Medication Refill Encounter Details Date Type Department Care Team (Late st Contact Info) Description 01/05/2023 Refill [facility] #2 [place] [address] Eddie Baker MD #[address] [address] Medication Refill Social History Tobacco Use Types Packs/Day Years Used Date Smoking Tobacco: Former Cigarettes Q uit: 04/11/2019 Smokeless Tobacco: Former Alcohol Use Standard Drinks/Week Comments No 0 (1 standard drink = 0.6 oz pur e alcohol) Sexually Active Control Partners Comments Yes Female Sex and Gender Information Value Date Recorded Sex Assigned at Not on file Legal Sex Male 3:07 AM RN TRANSPLANT Gender Identity Not on file Sexual Orientation Not on file COVID-19 Exposure Response Date Recorded In the last 10 days, have yo u been in contact with someone who was confirmed or suspected to have Coronavirus/COVID-19? No / Unsure 12/19/2022 2:00 PM CDT documented as of this encounter Plan of Treatment Not on file documented as of this encounter Visit Diagnoses Not on filedocumented in this encounter Additional Health Concerns Infection Onset Date Last Indicated Resolved Time COVID - 19 10/22/2024 10/22/2024 10/22/2024 1:38 PM CDT documented as of this encounter Care Teams Housing Assistant Relationship Specialty Start Date End Date Julio Gaston MD PCP - General Internal Medicine 10/19/21 03/12/24 Rickie Aleman MD [address] [facility] [address] [place] [place] [address] PCP - General Loan Representative 03/13/24 documented as of this encounter
--- OUTSIDE RECORDS SUMMARY | 2024-12-03 11:49 | XMS_ITS | Encounter Summary ---
Author Organization [facility] Address [address] [place] [address] Phone Care Team Providers Care Property Economist Name Role Phone Eddie Baker MD Primary Care Provider [phone] Provider, None Primary Care Provider Julio Small MD Primary Care Provider [phone] Rickie Aleman MD Primary Care Provider [phone] Reason for Visit * Reason Comments Medication Refill Encounter Details Date Type Department Care Team (Late st Contact Info) Description 05/03/2021 Refill [facility] - Family Medicine [facility] #2 [place] [address] Eddie Baker MD #[address] [address] Medication Refill Social History Tobacco Use Types Packs/Day Years Used Date Smoking Tobacco: Former Cigarettes Q uit: 04/11/2019 Smokeless Tobacco: Former Alcohol Use Standard Drinks/Week Comments No 0 (1 standard drink = 0.6 oz pur e alcohol) Sexually Active Control Partners Comments Yes Female Sex and Gender Information Value Date Recorded Sex Assigned at Not on file Legal Sex Male 3:07 AM MICA LAYER Gender Identity Not on file Sexual Orientation Not on file COVID-19 Exposure Response Date Recorded In the last month, have you been in contact with someone who was confirmed or suspected to have Coronavirus / COVID-19? No / Unsure 05/06/2021 12:33 PM MICA LAYER documented as of this encounter Miscellaneous Notes * Telephone Encounter - Karyna Tovar RN - 05/04/2021 11:50 AM CST Medication failed the protocol, provider to review and approve the medication order if appropriate. Requested Prescriptions Pending Prescriptions Disp Refills meloxicam (MOBIC) 15 MG Tablet [Pharmacy Med Name: MELOXICAM 15 MG TABLET] 30 Tablet 1 Sig: TAKE 1 TABLET BY MOUTH EVERY DAY WITH FOOD NSAIDs Protocol Failed - 05/03/2021 6:15 PM Failed - Normal serum creatinine in past 12 months CREATININE, BLOOD Date Value Ref Range Status 10/10/2019 0.72 (L) 0.80 - 1.30 mg/dL Final Failed - AST less than 55 or ALT less than 90 in past 12 months SGOT (AST) Date Value Ref Range Status 10/10/2019 45 (H) <=40 U/L Final SGPT (ALT) Date Value Ref Range Status 10/10/2019 79 (H) <=41 U/L Final Failed - HGB greater than 10 or HCT greater than 30 in past 12 months HEMOGLOBIN (HGB) Date Value Ref Range Status 10/10/2019 14.6 13.0 - 16.5 g/dL Final HEMATOCRIT (HCT) Date Value Ref Range Status 10/10/2019 43.1 38.0 - 50.0 % Final Passed - Visit with relevant provider in past 12 months or upcoming 90 days Recent Visits Date Type Provider Dept 03/01/21 Office Visit Eddie Baker MD [facility] 10/25/20 Office Visit Eddie Baker MD [facility] 07/22/20 Office Visit Eddie Baker MD [facility] 05/28/20 Office Visit Harley Segundo APRN, [facility] 05/04/20 Telemedicine Harley Segundo APRN, SUPERVISOR LEAF [employer]ING F[employer] [facility] Showing recent visits within past 365 days and meeting all other requirements Future Appointments Date Type Provider Dept 06/01/21 Appointment Eddie Baker MD [facility] [place] Showing future appointments within next 90 days and meeting all other requirements Passed - No matching NSAID med order in past 45 days No matching medication orders between 03/20/2021 11:50 AM and 05/04/2021 11:50 AM LAYER documented in this encounter Plan of Treatment Not on file documented as of this encounter Visit Diagnoses Not on filedocumented in this encounter Additional Health Concerns Infection Onset Date Last Indicated Resolved Time COVID - 19 04/04/2022 04/04/2022 04/04/2022 1:54 PM MICA LAYER COVID - 19 04/04/2022 04/04/2022 04/14/2022 12:1 9 AM MICA LAYER COVID - 19 10/22/2024 10/22/2024 10/22/2024 1:38 PM CDT documented as of this encounter Care Teams Property Economist Relationship Specialty Start Date End Date Eddie Baker MD #[address] [address] PCP - General Family Medicine 04/16/20 08/01/21 Provider, None [place] PCP - General 08/02/21 10/18/21 Julio Gaston MD [place] PCP - General Internal Medicine 10/19/21 03/12/24 Rickie Aleman MD [address] [place] [address] [place] [address] [place] [address] PCP - General Dental Chair Assembler 03/13/24 documented as of this encounter
--- OUTSIDE RECORDS SUMMARY | 2024-12-03 11:49 | XMS_ITS | Encounter Summary ---
Author Organization [facility] Address [address] [place] [address] Phone Care Team Providers Care Consumer Loan Underwriter Name Role Phone Julio Gaston MD Primary Care Provider [phone] Rickie Aleman MD Primary Care Provider [phone] Reason for Visit * Reason Comments Medication Refill Encounter Details Date Type Department Care Team (Late st Contact Info) Description 04/18/2022 Refill [facility] #2 [place] [address] Eddie Baker MD #[address] [address] Medication Refill Social History Tobacco Use Types Packs/Day Years Used Date Smoking Tobacco: Former Cigarettes Q uit: 04/11/2019 Smokeless Tobacco: Former Alcohol Use Standard Drinks/Week Comments No 0 (1 standard drink = 0.6 oz pur e alcohol) Sexually Active Control Partners Comments Yes Female Sex and Gender Information Value Date Recorded Sex Assigned at Not on file Legal Sex Male 3:07 AM MEAL ROOM HAND Gender Identity Not on file Sexual Orientation Not on file COVID-19 Exposure Response Date Recorded In the last 10 days, have yo u been in contact with someone who was confirmed or suspected to have Coronavirus/COVID-19? No / Unsure 04/04/2022 3:05 PM MEAL ROOM HAND documented as of this encounter Miscellaneous Notes * Telephone Encounter - Milagro Bhatti RN - 04/19/2022 10:26 AM CST Medication failed the protocol, provider to review and approve the medication order if appropriate. Requested Prescriptions Pending Prescriptions Disp Refills albuterol (PROVENTIL, VENTOLIN) (2.5 MG/3ML) 0.083% Nebulizer Soln [Pharmacy Med Name: ALBUTEROL SUL 2.5 MG/3 ML SOLN] 300 mL 5 Sig: INHALE 3 ML 3 TIMES A DAY BY NEBULIZATION ROUTE NEEDED FOR 30 DAYS. Short Acting Inhaled Beta-Agonists Protocol Passed - 04/18/2022 10:30 PM Passed - Visit with relevant provider in past 12 months or upcoming 90 days Recent Visits Date Type Provider Dept 06/01/21 Office Visit Eddie Baker MD [facility] [place] Showing recent visits within past 365 days and meeting all other requirements Future Appointments No visits were found meeting these conditions. Showing future appointments within next 90 days and meeting all other requirements ROOM HAND documented in this encounter Plan of Treatment Not on file documented as of this encounter Visit Diagnoses Not on filedocumented in this encounter Additional Health Concerns Infection Onset Date Last Indicated Resolved Time COVID - 19 10/22/2024 10/22/2024 10/22/2024 1:38 PM CDT documented as of this encounter Care Teams Consumer Loan Underwriter Relationship Specialty Start Date End Date Julio Gaston MD PCP - General Internal Medicine 10/19/21 03/12/24 Rickie Aleman MD [address] [place] [address] [place] [address] PCP - General Bleacher Operator 03/13/24 documented as of this encounter
--- OUTSIDE RECORDS SUMMARY | 2024-12-03 11:49 | XMS_ITS | Encounter Summary ---
Author Organization [facility] Address [address] [place] [address] Phone Care Team Providers Care Receipt And Report Clerk Name Role Phone Eddie Baker MD Primary Care Provider + [phone] Provider, None Primary Care Provider Julio Small MD Primary Care Provider [phone] Rickie Aleman MD Primary Care Provider [phone] Reason for Visit * Reason Comments Medication Refill Encounter Details Date Type Department Care Team (Late st Contact Info) Description 08/14/2020 Refill [facility] - Family Medicine [facility] #2 [place] [address] Eddie Baker MD #[address] [address] Medication Refill Social History Tobacco Use Types Packs/Day Years Used Date Smoking Tobacco: Former Cigarettes Q uit: 04/11/2019 Smokeless Tobacco: Former Alcohol Use Standard Drinks/Week Comments No 0 (1 standard drink = 0.6 oz pur e alcohol) Sexually Active Control Partners Comments Yes Female Sex and Gender Information Value Date Recorded Sex Assigned at Not on file Legal Sex Male 3:07 AM BUTTON GRADER Gender Identity Not on file Sexual Orientation Not on file COVID-19 Exposure Response Date Recorded In the last month, have you been in contact with someone who was confirmed or suspected to have Coronavirus / COVID-19? No / Unsure 08/04/2020 4:22 PM CDT documented as of this encounter Miscellaneous Notes * Telephone Encounter - Portillo Mayra Lino RN - 08/16/2020 1:44 PM CDT Refills ? Per nursing clinical judgement, provider to review and approve the medication(s) order(s) if appropriate. Requested Prescriptions Pending Prescriptions Disp Refills meloxicam (MOBIC) 15 MG Tablet [Pharmacy Med Name: MELOXICAM 15 MG TABLET] 30 Tablet Sig: TAKE 1 TABLET BY MOUTH EVERY DAY WITH FOOD Analgesics: COX2 Inhibitors Passed - 08/14/2020 8:24 PM Passed - Valid encounter within last 6 months Past Office Visits Recent Outpatient Visits 3 weeks ago URI, acute [facility] - Eddie Santana MD 2 months ago Centrilobular emphysema (HCC) [facility] - Harley Kinney APN, CNP 3 months ago COPD with acute exacerbation (HCC) [facility] - Harley Kinney APN, CNP 3 months ago Chronic bronchitis, unspecified chronic bronchitis type (HCC) [facility] Eddie Santana MD Upcoming Appointments Future Appointments In 1 month Martha Kim APN, CNP [facility] In 2 months Eddie [facility] MD [facility] [employer]EN - Recent and Past Visits Recent Visits Date Type Provider Dept 07/22/20 Office Visit Eddie Baker MD [facility] 05/28/20 Office Visit Harley Segundo APN, CNP [facility] 05/04/20 Telemedicine Harley Segundo APN, CNP [facility] 04/19/20 Office Visit Eddie Baker MD [facility] Showing recent visits within past 460 days with a meds authorizing provider and meeting all other requirements Future Appointments Date Type Provider Dept 10/25/20 Appointment Eddie Baker MD [facility] Showing future appointments within next 90 days with a meds authorizing provider and meeting all other requirements documented in this encounter Plan of Treatment Not on file documented as of this encounter Visit Diagnoses Not on filedocumented in this encounter Additional Health Concerns Infection Onset Date Last Indicated Resolved Time COVID - 19 04/08/2021 04/08/2021 04/28/2021 12:1 6 AM BUTTON GRADER COVID - 19 04/04/2022 04/04/2022 04/04/2022 1:54 PM BUTTON GRADER COVID - 19 04/04/2022 04/04/2022 04/14/2022 12:1 9 AM BUTTON GRADER COVID - 19 10/22/2024 10/22/2024 10/22/2024 1:38 PM CDT documented as of this encounter Care Teams Receipt And Report Clerk Relationship Specialty Start Date End Date Eddie Baker MD #2 [facility] [address] [place], [place] [address], [place] [address] PCP - General Family Medicine 04/16/20 08/01/21 Provider, None [place] PCP - General 08/02/21 10/18/21 Julio Gaston MD [place] PCP - General Internal Medicine 10/19/21 03/12/24 Rickie Aelman MD [address] [place], [place] [address], [place] [address] PCP - General Network Liaison 03/13/24 documented as of this encounter
--- OUTSIDE RECORDS SUMMARY | 2024-12-03 11:49 | XMS_ITS | Encounter Summary ---
Author Organization [facility] Address [address] [place] [address] Phone Care Team Providers Care Vending Machine Servicer Name Role Phone Eddie Baker MD Primary Care Provider [phone] Provider, None Primary Care Provider Julio Small MD Primary Care Provider [phone] Rickie Aleman MD Primary Care Provider [phone] Reason for Visit * Reason Comments Medication Refill Encounter Details Date Type Department Care Team (Late st Contact Info) Description 01/29/2021 Refill [facility] Medical [facility] - Family Medicine [facility] [address]2 [place] [address] Eddie Baker MD #[address] [address] Medication Refill Social History Tobacco Use Types Packs/Day Years Used Date Smoking Tobacco: Former Cigarettes Q uit: 04/11/2019 Smokeless Tobacco: Former Alcohol Use Standard Drinks/Week Comments No 0 (1 standard drink = 0.6 oz pur e alcohol) Sexually Active Control Partners Comments Yes Female Sex and Gender Information Value Date Recorded Sex Assigned at Not on file Legal Sex Male 3:07 AM COMPUTER INSTRUCTOR Gender Identity Not on file Sexual Orientation Not on file documented as of this encounter Miscellaneous Notes * Telephone Encounter - Ruslan Herndon MD - 01/31/2021 12:14 PM CDT Prescription approved. Please call in * Telephone Encounter - Karyna Tovar RN - 01/31/2021 9:33 AM CDT Medication failed the protocol, provider to review and approve the medication order if appropriate. Requested Prescriptions Pending Prescriptions Disp Refills busPIRone (BUSPAR) 10 MG Tablet [Pharmacy Med Name: BUSPIRONE HCL 10 MG TABLET] 60 Tablet 2 Sig: TAKE 1 TABLET BY MOUTH TWICE A DAY Buspirone (6 Month Refill Only) Protocol Failed - 01/29/2021 3:39 AM Failed - Has an encounter in the past 6 months with a depression or anxiety visit diagnosis Passed - Visit with relevant provider in past 6 months or upcoming 90 days Recent Visits Date Type Provider Dept 10/25/20 Office Visit Eddie Baker MD [facility] Showing recent visits within past 182 days and meeting all other requirements Future Appointments Date Type Provider Dept 03/01/21 Appointment Eddie Baker MD [facility] Showing future appointments within next 90 days and meeting all other requirements Passed - Patient has established therapy with Buspirone for at least 6 months documented in this encounter Plan of Treatment Not on file documented as of this encounter Visit Diagnoses Not on filedocumented in this encounter Additional Health Concerns Infection Onset Date Last Indicated Resolved Time COVID - 19 04/08/2021 04/08/2021 04/28/2021 12:1 6 AM COMPUTER INSTRUCTOR COVID - 19 04/04/2022 04/04/2022 04/04/2022 1:54 PM COMPUTER INSTRUCTOR COVID - 19 04/04/2022 04/04/2022 04/14/2022 12:1 9 AM COMPUTER INSTRUCTOR COVID - 19 10/22/2024 10/22/2024 10/22/2024 1:38 PM CDT documented as of this encounter Care Teams Vending Machine Servicer Relationship Specialty Start Date End Date Eddie Baker MD #2 [facility] [address] [place] [address] PCP - General Family Medicine 04/16/20 08/01/21 Provider, None [place] PCP - General 08/02/21 10/18/21 Julio Gaston MD [place] PCP - General Internal Medicine 10/19/21 03/12/24 Rickie Aleman MD [address] [facility] [address] [place] [address] PCP - General Assistant Field Hockey Coach 03/13/24 documented as of this encounter
--- OUTSIDE RECORDS SUMMARY | 2024-12-03 11:49 | XMS_ITS | Encounter Summary ---
Author Organization [facility] Address [address] [place] [address] Phone Care Team Providers Care Die Attacher Name Role Phone Eddie aBker MD Primary Care Provider [phone] Provider, None Primary Care Provider Julio Small MD Primary Care Provider [phone] Rickie Aleman MD Primary Care Provider [phone] Reason for Visit * Reason Comments Medication Refill Encounter Details Date Type Department Care Team (Late st Contact Info) Description 04/03/2021 Refill [facility] Medical Group - Family Medicine [facility] #2 [place] [address] Eddie Baker MD #[address] [address] Medication Refill Social History Tobacco Use Types Packs/Day Years Used Date Smoking Tobacco: Former Cigarettes Q uit: 04/11/2019 Smokeless Tobacco: Former Alcohol Use Standard Drinks/Week Comments No 0 (1 standard drink = 0.6 oz pur e alcohol) Sexually Active Control Partners Comments Yes Female Sex and Gender Information Value Date Recorded Sex Assigned at Not on file Legal Sex Male 3:07 AM ANTIQUE REPAIRER Gender Identity Not on file Sexual Orientation Not on file documented as of this encounter Miscellaneous Notes * Telephone Encounter - Karyna Tovar RN - 04/04/2021 2:06 PM CST Medication failed the protocol, provider to review and approve the medication order if appropriate. Requested Prescriptions Pending Prescriptions Disp Refills losartan (COZAAR) 25 MG Tablet [Pharmacy Med Name: LOSARTAN POTASSIUM 25 MG TAB] 90 Tablet 3 Sig: TAKE 1 TABLET BY MOUTH EVERY DAY ARB Protocol Failed - 04/03/2021 8:18 PM Failed - Serum potassium on record in past 12 months POTASSIUM Date Value Ref Range Status 10/10/2019 3.5 3.5 - 5.1 mmol/L Final Failed - GFR on record in past 12 months GFR, EST. NONAFRICAN Date Value Ref Range Status 10/10/2019 >60 >=60 Final Passed - BP on record in the past year Clinician-entered: BP Readings from Last 3 Encounters: 03/01/21 130/68 02/06/21 127/68 10/25/20 134/82 Patient-entered: No data recorded Passed - Visit with relevant provider in past year or upcoming 90 days Recent Visits Date Type Provider Dept 03/01/21 Office Visit Eddie Baker MD [facility] 10/25/20 Office Visit Eddie Baker MD [facility] 07/22/20 Office Visit Eddie Baker MD [facility] 05/28/20 Office Visit Harley Segundo APRN, [facility] 05/04/20 Telemedicine Harley Segundo APRN, [facility] 04/19/20 Office Visit Eddie Baker MD [facility] Showing recent visits within past 365 days and meeting all other requirements Future Appointments Date Type Provider Dept 06/01/21 Appointment Eddie Baker MD [facility] Showing future appointments within next 90 days and meeting all other requirements QUE REPAIRER documented in this encounter Plan of Treatment Not on file documented as of this encounter Visit Diagnoses Not on filedocumented in this encounter Additional Health Concerns Infection Onset Date Last Indicated Resolved Time COVID - 19 04/08/2021 04/08/2021 04/28/2021 12:1 6 AM ANTIQUE REPAIRER COVID - 19 04/04/2022 04/04/2022 04/04/2022 1:54 PM ANTIQUE REPAIRER COVID - 19 04/04/2022 04/04/2022 04/14/2022 12:1 9 AM ANTIQUE REPAIRER COVID - 19 10/22/2024 10/22/2024 10/22/2024 1:38 PM CDT documented as of this encounter Care Teams Die Attacher Relationship Specialty Start Date End Date Eddie Baker MD [address] [place] [address] PCP - General Family Medicine 04/16/20 08/01/21 Provider, None [place] PCP - General 08/02/21 10/18/21 Julio Gaston MD [place] PCP - General Internal Medicine 10/19/21 03/12/24 Rickie Aleman MD 2 [facility] [address] [place], [place] [address], [place] [address] PCP - General Data Librarian 03/13/24 documented as of this encounter
--- OUTSIDE RECORDS SUMMARY | 2024-12-03 11:49 | XMS_ITS | Encounter Summary ---
Author Organization [facility] Address [address] [place] [address] Phone Care Team Providers Care Security Systems Specialist Name Role Phone Eddie Baker MD Primary Care Provider [phone] Provider, None Primary Care Provider Julio Small MD Primary Care Provider [phone] Rickie Aleman MD Primary Care Provider [phone] Reason for Visit * Reason Comments Medication Refill Encounter Details Date Type Department Care Team (Late st Contact Info) Description 10/30/2020 Refill [facility] Medical Group - Family Medicine [facility] #2 [place] [address] Harley Segundo, NIPPLE THREADER, BUNCH BREAKER MACHINE OPERATOR #[address] [address] Medication Refill Social History Tobacco Use Types Packs/Day Years Used Date Smoking Tobacco: Former Cigarettes Q uit: 04/11/2019 Smokeless Tobacco: Former Alcohol Use Standard Drinks/Week Comments No 0 (1 standard drink = 0.6 oz pur e alcohol) Sexually Active Control Partners Comments Yes Female Sex and Gender Information Value Date Recorded Sex Assigned at Not on file Legal Sex Male 3:07 AM MEDIA BUYER Gender Identity Not on file Sexual Orientation Not on file COVID-19 Exposure Response Date Recorded In the last month, have you been in contact with someone who was confirmed or suspected to have Coronavirus / COVID-19? No / Unsure 10/25/2020 2:02 PM CDT documented as of this encounter Miscellaneous Notes * Telephone Encounter - La Karyna L, RN - 11/01/2020 10:11 AM CDT Can you please address the duplicate medications Per nursing clinical judgement, provider to review and approve the medication(s) order(s) if appropriate. Requested Prescriptions Pending Prescriptions Disp Refills Symbicort 160-4.5 MCG/ACT Aerosol [Pharmacy Med Name: SYMBICORT 160-4.5 MCG INHALER] 10.2 Inhaler 5 Sig: INHALE 2 PUFFS BY MOUTH 2 TIMES DAILY. Inhaled Combinations Protocol Passed - 10/30/2020 1:09 PM Passed - Visit with relevant provider in past 12 months or upcoming 90 days Recent Visits Date Type Provider Dept 10/25/20 Office Visit Eddie Baker MD [facility] 07/22/20 Office Visit Eddie Baker MD [facility] 05/28/20 Office Visit Harley Segundo APN, [facility] 05/04/20 Telemedicine Harley Segundo APN, [facility] 04/19/20 Office Visit Eddie Baker MD [facility] Showing recent visits within past 365 days and meeting all other requirements Future Appointments Date Type Provider Dept 01/27/21 Appointment Eddie Baker MD [facility] Showing future appointments within next 90 days and meeting all other requirements Passed - Active short-acting beta agonist prescription [facility]: Combination Products Passed - 10/30/2020 1:09 PM Passed - Valid encounter within last 12 months Past Office Visits Recent Outpatient Visits 1 week ago Type 2 diabetes mellitus without complication, without long-term current use of insulin (HCC) [facility] - Eddie Santana MD 3 months ago URI, acute [facility] - Eddie Santana MD 5 months ago Centrilobular emphysema (HCC) [facility] - Harley Kinney APN, AYUSH 6 months ago COPD with acute exacerbation (HCC) [facility] - Harley Kinney APN, CNP 6 months ago Chronic bronchitis, unspecified chronic bronchitis type (HCC) [facility] Eddie Santana MD Upcoming Appointments Future Appointments In 2 months Eddie Baker MD [facility] - Recent and Past Visits Recent Visits Date Type Provider Dept 10/25/20 Office Visit Eddie Baker MD [facility] 07/22/20 Office Visit Eddie Bakre MD [facility] 05/28/20 Office Visit Harley Segundo APN, CNP [facility] 05/04/20 Telemedicine Harley Segundo APN, CNP [facility] 04/19/20 Office Visit Eddie Baker MD [facility] Showing recent visits within past 460 days with a meds authorizing provider and meeting all other requirements Future Appointments Date Type Provider Dept 01/27/21 Appointment Eddie Baker MD [facility] Showing future appointments within next 90 days with a meds authorizing provider and meeting all other requirements Passed - Last BP in normal range BP Readings from Last 1 Encounters: 10/25/20 134/82 documented in this encounter Plan of Treatment Not on file documented as of this encounter Visit Diagnoses Diagnosis Centrilobular emphysema (HCC) Other emphysema documented in this encounter Additional Health Concerns Infection Onset Date Last Indicated Resolved Time COVID - 19 04/08/2021 04/08/2021 04/28/2021 12:1 6 AM MEDIA BUYER COVID - 19 04/04/2022 04/04/2022 04/04/2022 1:54 PM MEDIA BUYER COVID - 19 04/04/2022 04/04/2022 04/14/2022 12:1 9 AM MEDIA BUYER COVID - 19 10/22/2024 10/22/2024 10/22/2024 1:38 PM CDT documented as of this encounter Care Teams Security Systems Specialist Relationship Specialty Start Date End Date Eddie Baker MD #2 [facility] [address] [place] [address] PCP - General Family Medicine 04/16/20 08/01/21 Provider, None [place] PCP - General 08/02/21 10/18/21 Julio Gaston MD [place] PCP - General Internal Medicine 10/19/21 03/12/24 Rickie Aleman MD [address] [place] [address] [address] [place] [address] PCP - General Biology Specimen Technician 03/13/24 documented as of this encounter
--- OUTSIDE RECORDS SUMMARY | 2024-12-03 11:49 | XMS_ITS | Encounter Summary ---
Author Organization [facility] Address [address] [place] [address] Phone Care Team Providers Care Marine Reporter Name Role Phone Eddie Baker MD Primary Care Provider [phone] Provider, None Primary Care Provider Julio Small MD Primary Care Provider [phone] Rickie Aleman MD Primary Care Provider [phone] Reason for Visit * Reason Comments Medication Refill Encounter Details Date Type Department Care Team (Late st Contact Info) Description 07/21/2020 Refill [facility] - Family Medicine [facility] #2 [place] [address] Eddie Baker MD #[address] [address] Medication Refill Social History Tobacco Use Types Packs/Day Years Used Date Smoking Tobacco: Former Cigarettes Q uit: 04/11/2019 Smokeless Tobacco: Former Alcohol Use Standard Drinks/Week Comments No 0 (1 standard drink = 0.6 oz pur e alcohol) Sexually Active Control Partners Comments Yes Female Sex and Gender Information Value Date Recorded Sex Assigned at Not on file Legal Sex Male 3:07 AM BANQUET DIRECTOR Gender Identity Not on file Sexual Orientation Not on file COVID-19 Exposure Response Date Recorded In the last month, have you been in contact with someone who was confirmed or suspected to have Coronavirus / COVID-19? No / Unsure 07/22/2020 8:45 AM BANQUET DIRECTOR documented as of this encounter Miscellaneous Notes * Telephone Encounter - Karyna Tovar RN - 07/22/2020 11:45 AM CST Patient states he discussed this with you today and you were suppose to order for him. UET DIRECTOR * Telephone Encounter - Harley Segundo APN, CNP - 07/22/2020 11:16 AM CST Patient should contact pulmonology if he is having breathing issues or go to ER or [facility]. Don't prescribe steroids without being seen. UET DIRECTOR * Telephone Encounter - Karyna Tovar RN - 07/22/2020 11:05 AM CST Patient sees pulmonology UET DIRECTOR documented in this encounter Plan of Treatment Not on file documented as of this encounter Visit Diagnoses Diagnosis Centrilobular emphysema (HCC) Other emphysema documented in this encounter Additional Health Concerns Infection Onset Date Last Indicated Resolved Time COVID - 19 04/08/2021 04/08/2021 04/28/2021 12:1 6 AM BANQUET DIRECTOR COVID - 19 04/04/2022 04/04/2022 04/04/2022 1:54 PM BANQUET DIRECTOR COVID - 19 04/04/2022 04/04/2022 04/14/2022 12:1 9 AM BANQUET DIRECTOR COVID - 19 10/22/2024 10/22/2024 10/22/2024 1:38 PM CDT documented as of this encounter Care Teams Marine Reporter Relationship Specialty Start Date End Date Eddie Baker MD #2 [place] [id number] PCP - General Family Medicine 04/16/20 08/01/21 Provider, None [place] PCP - General 08/02/21 10/18/21 Julio Gaston MD [place] PCP - General Internal Medicine 10/19/21 03/12/24 Rickie Aleman MD [address] [facility] [address] [place] [address] PCP - General Ent Consultant 03/13/24 documented as of this encounter
--- OUTSIDE RECORDS SUMMARY | 2024-12-03 11:49 | XMS_ITS ---
Author Organization [facility] [employer] [facility] ([address]) Address [address] [place] [address] Care Team Providers Care Pipe Roller Name Role Phone Julio Gaston Primary Care Provider UnavailDr. Ruslan Rodriguez Unavailable [phone] [employer], Provider Unavailable Unavailab le Allergies Allergen (clinical drug ingredient) Drug/Non Drug Allergy documented on EMR Reaction Allergy Type Onset Date Status codeine Codeine stomach upset Drug Allergy Act marianne [facility] Encounter Medications Medication SIG (Take, Route, Frequency, Duration) Notes Start Date End Date Status Amitriptyline HCl 10 MG 1 tab once at bedtime for 1 week, then 2 tabs at bedtime orally as directed; Duration: 30 days 06/28/2023 Active Carvedilol *Please review a nd pick correct strength-formulatio n from Medispan options. If intended option is not shown, discontinue and re-order from Quick Search* Active Furosemide 20 MG 1 tab(s) orally once a day Active Atorvastatin Calcium *Please rev iew and pick correct strength-formulatio n from Medispan options. If intended option is not shown, discontinue and re-order from Quick Search* Active Aspirin 81 MG 1 tab(s) orally once a day Active busPIRone HCl *Please review a nd pick correct strength-formulatio n from Medispan options. If intended option is not shown, discontinue and re-order from Quick Search* Active Albuterol Sulfate *Please review and pick correct strength-formulatio n from Medispan options. If intended option is not shown, discontinue and re-order from Quick Search* Active Encounters Encounter Location Date Provider Diagnosis [facility] - [address] [address] 10/27/2023 Provider Carisa Post-traumatic headache, unspecified, not intractable G44.309 Assessments Encounter Date Diagnosis (ICD Code) Assessment Notes Treatment Notes Treatment Clinical Notes Section Notes 10/27/2023 Post-traumatic headache, unspecified, not intractable (ICD-10 - G44.309) Plan Of Treatment Medication Medication Name Sig Start Date Stop Date Notes Amitriptyline HCl 10 MG 1 tab once at be dtime for 1 week, then 2 tabs at bedtime orally as directed; Duration: 30 days 06/28/2023 Progress Notes * LORI, Jack LDOB:[birth year] (69 yo M)Acc No.[id number]:10/27/2023 Patient: Jaron PATEL Provider: Ramakrishna Levin :1955 A ge:68 Y S ex:Male Date:10/27/2023 Address:[address] [place], [place] [id number] Pcp:Julio Gaston Subjective: * Chief Complaints: * 1 . Multum To Medispan Conversion Encounter. * Medical History: * Medications: T aking Albuterol Sulfate , Notes to Pharmacist: *Please [...] Tablet 1 tab(s) orally once a day * Allergies: C odeine: stomach upset. Objective: * Vitals: Assessment: * Assessment: 1. P ost-traumatic headache, unspecified, not intractable - G44.309 Plan: * Treatment: * Billing Information: * Visit Code: * Procedure Codes: * Electronic signature of Kimberlyn AGRAWAL-Migration on 12/03/2024 at 11:49 AM CDT Sign off status: Pending * Provider: Ramakrishna lopez Migration Date: 0 10/27/2023 Generated for Mau caldwell/Inez/Josephsmpawan on: 0 12/03/2024 11:49 AM CDT
--- OUTSIDE RECORDS SUMMARY | 2024-12-03 11:49 | XMS_ITS | Encounter Summary ---
Author Organization [facility] Address [address] [place] [address] Phone Care Team Providers Care Radio Host Name Role Phone Eddie Baker MD Primary Care Provider + [phone] Provider, None Primary Care Provider Julio Small MD Primary Care Provider [phone] Rickie Aleman MD Primary Care Provider [phone] Reason for Visit * Reason Comments Medication Refill Encounter Details Date Type Department Care Team (Late st Contact Info) Description 2021 Refill [facility] Medical [facility] - Family Medicine [facility] #2 [place] [address] Eddie Baker MD #[address] [address] Medication Refill Social History Tobacco Use Types Packs/Day Years Used Date Smoking Tobacco: Former Cigarettes Q uit: 04/11/2019 Smokeless Tobacco: Former Alcohol Use Standard Drinks/Week Comments No 0 (1 standard drink = 0.6 oz pur e alcohol) Sexually Active Control Partners Comments Yes Female Sex and Gender Information Value Date Recorded Sex Assigned at Not on file Legal Sex Male 3:07 AM UTILITY PLANT OPERATIVE Gender Identity Not on file Sexual Orientation Not on file COVID-19 Exposure Response Date Recorded In the last month, have you been in contact with someone who was confirmed or suspected to have Coronavirus / COVID-19? No / Unsure 07/05/2021 2:36 PM UTILITY PLANT OPERATIVE documented as of this encounter Miscellaneous Notes * Telephone Encounter - Karyna Tovar RN - 2021 3:25 PM CST albuterol 108 (90 Base) MCG/ACT Aerosol Solution 8 g 0 07/05/2021 Sig - Route: take 2 Puffs by inhalation every 6 hours as needed for Wheezing or Cough. - Inhalation Sent to pharmacy as: Albuterol Sulfate HFA 108 (90 Base) MCG/ACT Inhalation Aerosol Solution (PROVENTIL HFA, VENTOLIN HFA) Class: E Prescribe E-Prescribing Status: Receipt confirmed by pharmacy (07/05/2021 ??4:08 PM UTILITY PLANT OPERATIVE) Order Questions Question Answer Collaborating for Scripts: SUZIE SCHMITZ ?? albuterol 108 (90 Base) MCG/ACT Aerosol Solution [[id number]] 160 Status: Active Ordering user: Funmi Grajeda PAC 07/05/21 160 Ordering provider: Funmi Grajeda PAC Authorized by: Funmi Grajeda PAC PRN reasons: Wheezing Cough Frequency: Q6H PRN 07/05/21 - Until Discontinued Questionnaire Question Answer Collaborating for Scripts: SUZIE SCHMITZ Pharmacy [id number] - [place], [place] - [address] [place] [address] ITY PLANT OPERATIVE documented in this encounter Plan of Treatment Not on file documented as of this encounter Visit Diagnoses Not on filedocumented in this encounter Additional Health Concerns Infection Onset Date Last Indicated Resolved Time COVID - 19 04/04/2022 04/04/2022 04/04/2022 1:54 PM UTILITY PLANT OPERATIVE COVID - 19 04/04/2022 04/04/2022 04/14/2022 12:1 9 AM UTILITY PLANT OPERATIVE COVID - 19 10/22/2024 10/22/2024 10/22/2024 1:38 PM CDT documented as of this encounter Care Teams Radio Host Relationship Specialty Start Date End Date Eddie Baker MD #2 [facility] [address] [place] [address] PCP - General Family Medicine 04/16/20 08/01/21 Provider, None [place] PCP - General 08/02/21 10/18/21 Julio Gaston MD [place] PCP - General Internal Medicine 10/19/21 03/12/24 Rickie Aleman MD [address] [facility] [address] [place] [address] PCP - General Circular Head Saw Operator 03/13/24 documented as of this encounter
--- OUTSIDE RECORDS SUMMARY | 2024-12-03 11:49 | XMS_ITS | Encounter Summary ---
Author Organization [facility] Address [address] [place] [address] Phone Care Team Providers Care Websphere Architect Name Role Phone Julio Gaston MD Primary Care Provider [phone] Rickie Aleman MD Primary Care Provider [phone] Reason for Visit * Reason Comments Medication Refill Encounter Details Date Type Department Care Team (Late st Contact Info) Description 12/12/2022 Refill [facility] #2 [place] [address] Eddie Baker MD #[address] [address] Medication Refill Social History Tobacco Use Types Packs/Day Years Used Date Smoking Tobacco: Former Cigarettes Q uit: 04/11/2019 Smokeless Tobacco: Former Alcohol Use Standard Drinks/Week Comments No 0 (1 standard drink = 0.6 oz pur e alcohol) Sexually Active Control Partners Comments Yes Female Sex and Gender Information Value Date Recorded Sex Assigned at Not on file Legal Sex Male 3:07 AM LINUX ADMIN Gender Identity Not on file Sexual Orientation Not on file documented as of this encounter Miscellaneous Notes * Telephone Encounter - Karyna Tovar RN - 12/12/2022 12:13 PM CDT PCP Julio Gaston MD documented in this encounter Plan of Treatment Not on file documented as of this encounter Visit Diagnoses Not on filedocumented in this encounter Additional Health Concerns Infection Onset Date Last Indicated Resolved Time COVID - 19 10/22/2024 10/22/2024 10/22/2024 1:38 PM CDT documented as of this encounter Care Teams Websphere Architect Relationship Specialty Start Date End Date Julio Gaston MD PCP - General Internal Medicine 10/19/21 03/12/24 Rickie Aleman MD [address] [place] [address] [address] PCP - General Identity Management Consultant 03/13/24 documented as of this encounter
--- OUTSIDE RECORDS SUMMARY | 2024-12-03 11:49 | XMS_ITS | Encounter Summary ---
Author Organization [facility] Address [address] [place] [address] Phone Care Team Providers Care Food Vendor Name Role Phone Eddie Baker MD Primary Care Provider + [phone] Provider, None Primary Care Provider Julio Small MD Primary Care Provider [phone] Rickie Aleman MD Primary Care Provider [phone] Reason for Visit * Reason Comments Medication Refill Encounter Details Date Type Department Care Team (Late st Contact Info) Description 04/23/2021 Refill [facility] - Family Medicine [facility] #2 [place] [address] Eddie Baker MD #[address] [address] Medication Refill Social History Tobacco Use Types Packs/Day Years Used Date Smoking Tobacco: Former Cigarettes Q uit: 04/11/2019 Smokeless Tobacco: Former Alcohol Use Standard Drinks/Week Comments No 0 (1 standard drink = 0.6 oz pur e alcohol) Sexually Active Control Partners Comments Yes Female Sex and Gender Information Value Date Recorded Sex Assigned at Not on file Legal Sex Male 3:07 AM STAGE PRODUCER Gender Identity Not on file Sexual Orientation Not on file COVID-19 Exposure Response Date Recorded In the last month, have you been in contact with someone who was confirmed or suspected to have Coronavirus / COVID-19? No / Unsure 04/08/2021 12:35 PM STAGE PRODUCER documented as of this encounter Miscellaneous Notes * Telephone Encounter - Karyna Tovar RN - 04/25/2021 9:05 AM CST Medication warnings Per nursing clinical judgement, provider to review and approve the medication(s) order(s) if appropriate. Requested Prescriptions Pending Prescriptions Disp Refills Symbicort 160-4.5 MCG/ACT Aerosol [Pharmacy Med Name: SYMBICORT 160-4.5 MCG INHALER] 10.2 g 5 Sig: TAKE 2 PUFFS BY MOUTH TWICE A DAY Inhaled Combinations Protocol Passed - 04/23/2021 6:29 PM Passed - Visit with relevant provider in past 12 months or upcoming 90 days Recent Visits Date Type Provider Dept 03/01/21 Office Visit Eddie Baker MD [facility] 10/25/20 Office Visit Eddie Baker MD [facility] 07/22/20 Office Visit Eddie Baker MD [facility] 05/28/20 Office Visit Harley Segundo APRN, CNP [facility] 05/04/20 Telemedicine Harley Segudno APRN, [facility] [place] Showing recent visits within past 365 days and meeting all other requirements Future Appointments Date Type Provider Dept 06/01/21 Appointment Eddie Baker MD [facility] Showing future appointments within next 90 days and meeting all other requirements Passed - Active short-acting beta agonist prescription E PRODUCER documented in this encounter Plan of Treatment Not on file documented as of this encounter Visit Diagnoses Diagnosis Centrilobular emphysema (HCC) Other emphysema documented in this encounter Additional Health Concerns Infection Onset Date Last Indicated Resolved Time COVID - 19 04/08/2021 04/08/2021 04/28/2021 12:1 6 AM STAGE PRODUCER COVID - 19 04/04/2022 04/04/2022 04/04/2022 1:54 PM STAGE PRODUCER COVID - 19 04/04/2022 04/04/2022 04/14/2022 12:1 9 AM STAGE PRODUCER COVID - 19 10/22/2024 10/22/2024 10/22/2024 1:38 PM CDT documented as of this encounter Care Teams Food Vendor Relationship Specialty Start Date End Date Eddie Baker MD #2 [facility] [address] [place] [address] PCP - General Family Medicine 04/16/20 08/01/21 Provider, None [place] PCP - General 08/02/21 10/18/21 Julio Gaston MD [place] PCP - General Internal Medicine 10/19/21 03/12/24 Rickie Aleman MD 2 [facility] [address] [place] [address] PCP - General Drying Machine Operator Package Yarns 03/13/24 documented as of this encounter
--- OUTSIDE RECORDS SUMMARY | 2024-12-03 11:49 | XMS_ITS | Encounter Summary ---
Author Organization [facility] Address [address] [place] [address] Phone Care Team Providers Care Work Counselor Name Role Phone Eddie Baker MD Primary Care Provider [phone] Provider, None Primary Care Provider Julio Small MD Primary Care Provider [phone] Rickie Aleman MD Primary Care Provider [phone] Reason for Visit * Reason Comments Medication Refill Encounter Details Date Type Department Care Team (Late st Contact Info) Description 01/25/2021 Refill [facility] Medical Group - Family Medicine [facility] #2 [place] [address] Eddie Baker MD #[address] [address] Medication Refill Social History Tobacco Use Types Packs/Day Years Used Date Smoking Tobacco: Former Cigarettes Q uit: 04/11/2019 Smokeless Tobacco: Former Alcohol Use Standard Drinks/Week Comments No 0 (1 standard drink = 0.6 oz pur e alcohol) Sexually Active Control Partners Comments Yes Female Sex and Gender Information Value Date Recorded Sex Assigned at Not on file Legal Sex Male 3:07 AM TRIMMER MEAT Gender Identity Not on file Sexual Orientation Not on file documented as of this encounter Miscellaneous Notes * Telephone Encounter - La Karyna L, RN - 01/27/2021 12:24 PM CDT Medication failed the protocol, provider to review and approve the medication order if appropriate. Requested Prescriptions Pending Prescriptions Disp Refills predniSONE (DELTASONE) 20 MG Tablet [Pharmacy Med Name: PREDNISONE 20 MG TABLET] 20 Tablet 0 Sig: TAKE 1 TABLET BY MOUTH TWICE A DAY healthfinch Not Delegated - Endocrinology: Corticosteroids Failed - 01/25/2021 9:16 PM Failed - This refill cannot be delegated Passed - Valid encounter within last 6 months Past Office Visits Recent Outpatient Visits 3 months ago Type 2 diabetes mellitus without complication, without long-term current use of insulin (HCC) [facility] - Eddie Santana MD 6 months ago URI, acute [facility] - Eddie Santana MD 8 months ago Centrilobular emphysema (HCC) [facility] - Harley Kinney APN, AYUSH 8 months ago COPD with acute exacerbation (HCC) [facility] - Harley Kinney APN, AYUSH 9 months ago Chronic bronchitis, unspecified chronic bronchitis type (HCC) [facility] - Eddie Santana MD Upcoming Appointments Future Appointments In 1 month Eddie Baker MD [facility] [place] [facility] PLANT ANATOMIST - Recent and Past Visits Recent Visits [...] Provider Dept 03/01/21 [facility]ment [facility] Show[facility] future appointments within next 90 [...] 19 04/08/2021 04/08/2021 04/28/2021 12:1 6 AM TRIMMER MEAT COVID - 19 04/04/2022 04/04/2022 04/04/2022 1:54 PM TRIMMER MEAT COVID - 19 04/04/2022 04/04/2022 04/14/2022 12:1 9 AM TRIMMER MEAT COVID - 19 10/22/2024 10/22/2024 10/22/2024 1:38 PM CDT documented as of this encounter Care Teams Work Counselor Relationship Specialty Start Date End Date Eddie Baker MD #2 [facility] [place] [facility] [place] [address] PCP - General Family Medicine 04/16/20 08/01/21 Provider, None [place] PCP - General 08/02/21 10/18/21 Julio Gaston MD [place] PCP - General Internal Medicine 10/19/21 03/12/24 Rickie Aleman MD [address] [facility] [address] [facility] [address] PCP - General Real Estate Rental Agent 03/13/24 documented as of this encounter
--- OUTSIDE RECORDS SUMMARY | 2024-12-03 11:49 | XMS_ITS | Continuity of Care Document ---
Author Organization [facility] Address [address] [place] [address] [address] [place] [address] Phone Care Team Providers Care Core Filer Name Role Phone Sigifredo Grace MD, FACS Unavailable Unavailab le Allergies, Adverse Reactions, Alerts Substance Reaction Status Criticality codeine Active No Information Medications Medication Instructions Dosage Effective Dates (start - stop) Status Comments Optive 0.5 %-0.9 % Eye Drops - Active Restasis 0.05 % Eye Dropperette instill 1 drop by Ophthalmic route every 12 hours into affected eye(s) 1.00 drop - Active Procedures Procedure Date Office/outpatient Visit, Est Corneal Pachymetry Office/outpatient Visit, Est Advance Directives Directive Yes / No Effective Date File Name Resuscitation Not Answered N/A N/A Life Support Not Answered N/A N/A Intubation Not Answered N/A N/A Antibiotics Not Answered N/A N/A IV Fluid Support Not Answered N/A N/A Tube Feed Not Answered N/A N/A Other Directive N/A N/A WARNING:The information contained in this section is historical and is provided for information only and does not constitute a legal document or any assurance that the information is still accurate. Please verify the information with the church of the legal document before using it for clinical purposes. Encounters Encounter Description Practice Location Reason(s) For Visit Diagnoses Date Provider Providers Copied on Encounter Office/outpat ient Visit, Est 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 [address] [facility], [address], [place], [place], [id number], [place]. tel:[phone] Referring Provider: Sigifredo Huynh, [address] [facility] [address], [place], [address] . tel:[phone] Office/outpat ient Visit, [facility], [address], [place], [place], [id number], [place] tel:[phone] SEC [facility] No Information 0 Goff OD Samuel. [address], [address], [place], [address], [place]. tel:[phone] Family History Family Member Type Diagnosis Age At Onset No Information Payers Payer name Insurance type Covered alliance party ID Authoriza tisergio(s) AIG Workers Compensation [id number] Social History Type Description Quantity Date Captured Comments Alcohol Use Details No Caffeine Use Details Tobacco Use Status Smoking Status No Information Sex Male Chief Complaint And Reason For Visit No Information Reason For Referral Reason For Referral No Information History Of Present Illness Encounter Date Complaint History Of Prese nt Illness No Information Functional Status Date Functional Assessmen t No Information Instructions Date Instruction Additional Infor pepito - return after seen by Dr. Forte Cataract, PSC, OD - Likely due to intensive steroid Rx, but possible contributing issue of Chemical Injury. - Discussed cataract diagnosis with the patient. No treatment is required at this time. Will have Dr. Forte continue to observe condition and symptoms. Related to Cataract, PSC Hx of Chemical Injur y 01/03/10 at work. Multiple treatments over the past year for keratitis. 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 - Findings discussed with patient. Will report to Jonah & Vlad as requested. No management instuctions given. Patient will continue under current care w/Dr. Forte. Steroid Responer, wi th Glaucoma, OS - not controlled with meds. This needs continued f/u with current MD. May need removal of Steroid pellet to control IOP safely. - Discussed with patient. This will be followed by Dr. Forte. 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 - Discussed with patient. This will be followed by Dr. Forte. Related to Ptosis Assessments Type Assessment Date No Information Patient Care Teams Name Effective Dates (start - stop) Status Members No Information
--- OUTSIDE RECORDS SUMMARY | 2024-12-03 11:49 | XMS_ITS | Encounter Summary ---
Author Organization [facility] Address [address] [place] [address] Phone Care Team Providers Care Project Manager Name Role Phone Eddie Baker MD Primary Care Provider [phone] Provider, None Primary Care Provider Julio Small MD Primary Care Provider [phone] Rickie Aleman MD Primary Care Provider [phone] Reason for Visit * Reason Comments Medication Refill Encounter Details Date Type Department Care Team (Late st Contact Info) Description 11/26/[address] [facility] Medical Group - Family Medicine [facility] #2 [place] [address] Eddie Baker MD #[address] [address] Medication Refill Social History Tobacco Use Types Packs/Day Years Used Date Smoking Tobacco: Former Cigarettes Q uit: 04/11/2019 Smokeless Tobacco: Former Alcohol Use Standard Drinks/Week Comments No 0 (1 standard drink = 0.6 oz pur e alcohol) Sexually Active Control Partners Comments Yes Female Sex and Gender Information Value Date Recorded Sex Assigned at Not on file Legal Sex Male 3:07 AM RAGMAN Gender Identity Not on file Sexual Orientation Not on file documented as of this encounter Miscellaneous Notes * Telephone Encounter - Rita Tovarkingsley Hawkins RN - 11/26/2020 3:00 PM CDT Medication failed the protocol, provider to review and approve the medication order if appropriate. Requested Prescriptions Pending Prescriptions Disp Refills predniSONE (DELTASONE) 20 MG Tablet [Pharmacy Med Name: PREDNISONE 20 MG TABLET] 20 Tablet 0 Sig: TAKE 1 TABLET BY MOUTH 2 TIMES DAILY. healthfinch Not Delegated - Endocrinology: Corticosteroids Failed - 11/26/2020 2:49 PM Failed - This refill cannot be delegated Passed - Valid encounter within last 6 months Past Office Visits Recent Outpatient Visits 1 month ago Type 2 diabetes mellitus without complication, without long-term current use of insulin(HCC) [facility] - Eddie Santana MD 4 months ago URI, acute [facility] - Eddie Santana MD 6 months ago Centrilobular emphysema (HCC) [facility] - Harley Kinney APN, AYUSH 6 months ago COPD with acute exacerbation (HCC) [facility] - Harley Kinney APN, AYUSH 7 months ago Chronic bronchitis, unspecified chronic bronchitis type (HCC) [facility] - Eddie Santana MD Upcoming Appointments Future Appointments In 2 months Eddie Baker MD [facility] [place] [facility] PAGEANT DIRECTOR - Recent and Past Visits Recent Visits Date Type Provider Dept 10/25/20 Office Visit Eddie Baker MD [facility] 07/22/20 Office Visit Eddie Baker MD [facility] 05/28/20 Office Visit Harley Segundo APN, AYUSH [facility] 05/04/20 Telemedicine Harley Segundo APN, CNP [facility] 04/19/20 Office Visit Eddie Baker MD [facility] Showing recent visits within past 460 days with a meds authorizing provider and meeting all other requirements Future Appointments Date Type Provider Dept 01/27/21 Appointment Eddie Baker MD [facility] Showing [...] 19 04/08/2021 04/08/2021 04/28/2021 12:1 6 AM RAGMAN COVID - 19 04/04/2022 04/04/2022 04/04/2022 1:54 PM RAGMAN COVID - 19 04/04/2022 04/04/2022 04/14/2022 12:1 9 AM RAGMAN COVID - 19 10/22/2024 10/22/2024 10/22/2024 1:38 PM CDT documented as of this encounter Care Teams Project Manager Relationship Specialty Start Date End Date Eddie Baker MD #2 [facility] [place] [facility] [place] [address] PCP - General Family Medicine 04/16/20 08/01/21 Provider, None [place] PCP - General 08/02/21 10/18/21 Julio Gaston MD [place] PCP - General Internal Medicine 10/19/21 03/12/24 Rickie Aleman MD 2 [facility] [place] [address] PCP - General Metal Engineering Process Worker 03/13/24 documented as of this encounter
--- OUTSIDE RECORDS SUMMARY | 2024-12-03 11:49 | XMS_ITS | Encounter Summary ---
Author Organization [facility] Address [address] [place] [address] Phone Care Team Providers Care Quality Control Coordinator Name Role Phone Julio Gaston MD Primary Care Provider [phone] Rickie Aleman MD Primary Care Provider [phone] Reason for Visit * Reason Comments Medication Refill Encounter Details Date Type Department Care Team (Late st Contact Info) Description 03/01/2022 Refill [facility] #2 [place] [address] Eddie Baker MD #[address] [address] Medication Refill Social History Tobacco Use Types Packs/Day Years Used Date Smoking Tobacco: Former Cigarettes Q uit: 04/11/2019 Smokeless Tobacco: Former Alcohol Use Standard Drinks/Week Comments No 0 (1 standard drink = 0.6 oz pur e alcohol) Sexually Active Control Partners Comments Yes Female Sex and Gender Information Value Date Recorded Sex Assigned at Not on file Legal Sex Male 3:07 AM UNIVERSITY RELATIONS DIRECTOR Gender Identity Not on file Sexual Orientation Not on file documented as of this encounter Miscellaneous Notes * Telephone Encounter - Karyna Tovar RN - 03/02/2022 10:20 AM CDT PCP is Julio Gaston documented in this encounter Plan of Treatment Not on file documented as of this encounter Visit Diagnoses Not on filedocumented in this encounter Additional Health Concerns Infection Onset Date Last Indicated Resolved Time COVID - 19 04/04/2022 04/04/2022 04/04/2022 1:54 PM UNIVERSITY RELATIONS DIRECTOR COVID - 19 04/04/2022 04/04/2022 04/14/2022 12:1 9 AM UNIVERSITY RELATIONS DIRECTOR COVID - 19 10/22/2024 10/22/2024 10/22/2024 1:38 PM CDT documented as of this encounter Care Teams Quality Control Coordinator Relationship Specialty Start Date End Date Julio Gaston MD PCP - General Internal Medicine 10/19/21 03/12/24 Rickie Aleman MD [address] [place] [address] [address] PCP - General Breast Splitter 03/13/24 documented as of this encounter
--- OUTSIDE RECORDS SUMMARY | 2024-12-03 11:49 | XMS_ITS | Data Portability ---
Author Organization [facility] ABIGAILHoward Address [address] [place] [address] Care Team Providers Care Surgical Services Director Name Role Phone ARRIAZA ANTONY Primary Care Provider Assessment Encounter Date Assessment Date Assessment LastModified by Organization Details LastModified Time 09/09/2019 09/09/2019 Pt has already received a kenalog shot this year. He will come in for a nurse visit tomorrow in order to have his pulse ox checked. Not available 09/09/2019 16:47:46 10/09/2019 10/09/2019 Pt was encouraged to contact his sleep study provider Dr. Langford for help with his CPAP machine. [email or web address] Not available 10/10/2019 12:27:38 12/31/2019 12/31/2019 With wt loss, HgbA1c has improved from 11 to 6.3! [email or web address] Not available 01/02/2020 07:30:26 Plan of Treatment Reminders Order Date Submit Date Provider Last Modified By Organization Details Last Modified Time Details Appointments NEW PATIENT 30 2024 03:15P Katlyn Lozada MD Not available Not available Not available Lab HbA1c (hemogl obin A1c), blood 2019 020 [facility] In-Office Order, Internal Use Only DO Not Attach Compendium DO Not Attach Compendium, Do Not Delete/merge, [id number] 01/01/2020 23:03:00 lipid panel, serum 2019 020 [facility], [address] [place] [address], [place], [address], 10/10/2019 08:16:17 CMP, serum or plasma 2019 020 [facility], [address] [facility], [facility], [place], [address], 10/10/2019 08:16:17 unliste d lab - TSH w/refle x 2019 020 [facility], [address] [facility], [facility], [place], [address], 10/10/2019 08:16:19 CBC w/ auto diff 2019 020 [facility], [address] [facility], [facility], [place], [address], 10/10/2019 08:16:16 BNP (B-type natriur etic peptide ), serum or plasma 2019 020 [facility], [address] [facility], [facility], [place], [address], 10/10/2019 08:16:18 Referral sleep medicin e referra l 2019 020 NINA Mirella Langford, [address] [facility], [address], [place], [address], 09/24/2019 16:58:41 pulmono logist referra l 2019 020 gina Henley MD, [address] [facility], [address] Floor, [place], [address], 10/21/2019 10:31:32 Procedures None recorde d. Surgeries None recorde d. Imaging None recorde d. Medication Orders prednis one 10 mg tablet 2019 020 INTERFACE Not available 01/08/2020 07:33:26 montelu kast 10 mg tablet 2019 020 INTERFACE Not available 12/31/2019 15:03:11 alprazo keller 0.25 mg tablet 2019 020 [email or web address] Not available 12/31/2019 15:32:12 prednis one 20 mg tablet 2019 020 [email or web address] Not available 03/02/2020 16:26:30 hydroxy zine pamoate 25 mg capsule 2019 020 INTERFACE Not available 11/03/2019 14:22:14 ipratro pium 0.5 mg-albu terol 3 mg (2.5 mg base)/3 mL nebuliz ation soln 2019 020 INTERFACE Not available 10/09/2019 12:06:32 albuter ol sulfate 2.5 mg/3 mL (0.083 %) solutio n for nebuliz ation 2019 INTERFACE Not available 09/09/2019 14:08:38 Patient TargetsNo targets recorded. Patient Instructions Encounter Date Encounter Id Patient Instructions Last Modified By Organization Details Last Modified Time 09/09/2019 [id number] sleep apnea: car e instructions [email or web address] Not available 09/09/2019 14:08:36 seasonal allergies: care instructions Not available 09/09/2019 14:10:17 09/10/2019 [id number] When You Want to Lose Weight: Care Instructions Not available 09/10/2019 13:23:33 10/09/2019 [id number] When You Want to Lose Weight: Care Instructions [email or web address] Not available 10/09/2019 12:03:31 cough: care instructions [email or web address] Not available 10/09/2019 12:02:39 11/03/2019 [id number] learning about type 2 diabetes [email or web address] Not available 11/03/2019 14:20:40 type 2 diabetes: care instructions [email or web address] Not available 11/03/2019 14:20:40 shortness of breath: care instructions [email or web address] Not available 11/03/2019 14:23:27 12/31/2019 [id number] learning about type 2 diabetes [email or web address] Not available 12/31/2019 15:04:12 type 2 diabetes: care instructions [email or web address] Not available 12/31/2019 15:04:12 seasonal allergies: care instructions Not available 12/31/2019 15:03:07 Reason for Referral Site Safety Manager Referral for D yspnea Referring Physician: Antony Arriaza, Family Medicine, Encounter Date: 09/09/2019 Sleep Medicine Referral for Sleep apnea Referring Physician: Antony Arriaza, [facility] Medicine, Encounter Date: 09/09/2019 Results Created Date Observation Date Name Description Value Unit Range Abnormal Flag Note LastModifiedBy Organization Detail LastModifiedTime 10/09/19 20 10/10/2019 CBC w/ auto diff WBC 11.3 x10e3 /uL 3.4-10 .8 above high normal Not Available [facility] ([facility]) [address] [place], [address], 10/10/2019 08:16:16 10/09/1910/10/2019 CBC w/ auto diff RBC 4.99 x10e6 /uL 4.14-5 .80 Not Available [facility] ([facility]) [address] [place], [address], 10/10/2019 08:16:16 10/09/19 20 10/10/2019 CBC w/ auto diff hemoglobin 15.5 g/dL 13.0-1 7.7 Not Available [facility] ([facility]) [address] [place], [address], 10/10/2019 08:16:16 10/09/19 20 10/10/2019 CBC w/ auto diff hematocrit 46.3 % 37.5-5 1.0 Not Available [facility] ([facility]) [address] [place], [address], 10/10/2019 08:16:16 10/09/1910/10/2019 CBC w/ auto diff MCV 93 fL 79-97 Not Available [facility] ([facility]) [address] [place], [address], 10/10/2019 08:16:16 10/09/1910/10/2019 CBC w/ auto diff MCH 31.1 pg 26.6-3 3.0 Not Available [facility] ([facility]) [address] [place], [address], 10/10/2019 08:16:16 10/09/19 20 10/10/2019 CBC w/ auto diff MCHC 33.5 g/dL 31.5-3 5.7 Not Available [facility] ([facility]) [address] [facility], [place], [address], 10/10/2019 08:16:16 10/09/19 20 10/10/2019 CBC w/ auto diff RDW 14.1 % 11.6-1 5.4 Not Available [facility] ([facility]) [address] [facility], [place], [address], 10/10/2019 08:16:16 10/09/1910/10/2019 CBC w/ auto diff platelets 366 x10e3 /uL 150-45 0 Not Available [facility] ([facility]) [address] [place], [address], 10/10/2019 08:16:16 10/09/19 20 10/10/2019 CBC w/ auto diff neutrophils 65 % not estab. Not Available [facility] ([facility]) [address] [place], [address], 10/10/2019 08:16:16 10/09/1910/10/2019 CBC w/ auto diff lymphs 23 % not estab. Not Available [facility] ([facility]) [address] [place], [address], 10/10/2019 08:16:16 10/09/1910/10/2019 CBC w/ auto diff monocytes 7 % not estab. Not Available [facility] ([facility]) [address] [place], [address], 10/10/2019 08:16:16 10/09/1910/10/2019 CBC w/ auto diff eos 5 % not estab. Not Available [facility] ([facility]) [address] [place], [address], 10/10/2019 08:16:16 10/09/19 20 10/10/2019 CBC w/ auto diff basos 0 % not estab. Not Available [facility] ([facility]) [address] [place], [address], 10/10/2019 08:16:16 10/09/19 20 10/10/2019 CBC w/ auto diff immature cells PRACTICE ARCHITECT Not Available [facility] ([facility]) [address] [place], [address], 10/10/2019 08:16:16 10/09/1910/10/2019 CBC w/ auto diff neutrophils (absolute) 7.3 x10e3 /uL 1.4-7. 0 above high normal Not Available [facility] ([facility]) [address] [place], [address], 10/10/2019 08:16:16 10/09/19 20 10/10/2019 CBC w/ auto diff lymphs (absolute) 2.6 x10e3 /uL 0.7-3. 1 Not Available [facility] ([facility]) [address] [place], [address], 10/10/2019 08:16:16 10/09/19 20 10/10/2019 CBC w/ auto diff monocytes(ab solute) 0.8 x10e3 /uL 0.1-0. 9 Not Available [facility] ([facility]) [address] [place], [address], 10/10/2019 08:16:16 10/09/1910/10/2019 CBC w/ auto diff eos (absolute) 0.5 x10e3 /uL 0.0-0. 4 above high normal Not Available [facility] ([facility]) [address] [place], [address], 10/10/2019 08:16:16 10/09/1910/10/2019 CBC w/ auto diff baso (absolute) 0.0 x10e3 /uL 0.0-0. 2 Not Available [facility] ([facility]) [address] [facility] [place], [address], 10/10/2019 08:16:16 10/09/1910/10/2019 CBC w/ auto diff immature granulocytes 0 % not estab. Not Available [facility] ([facility]) [address] [facility] [place], [address], 10/10/2019 08:16:16 10/09/1910/10/2019 CBC w/ auto diff immature grans (abs) 0.0 x10e3 /uL 0.0-0. 1 Not Available [facility] ([facility]) [address] [place], [address], 10/10/2019 08:16:16 10/09/1910/10/2019 CBC w/ auto diff NRBC PRACTICE ARCHITECT Not Available [facility] ([facility]) [address] [place], [address], 10/10/2019 08:16:16 10/09/1910/10/2019 CBC w/ auto diff hematology comments: PRACTICE ARCHITECT Not Available [facility] ([facility]) [address] [place], [address], 10/10/2019 08:16:16 10/09/1910/10/2019 CMP, serum or plasm a glucose 355 mg/dL 65-99 above high normal Not Available [facility] ([facility]) [address] [place], [address], 10/10/2019 08:16:17 10/09/1910/10/2019 CMP, serum or plasm a BUN 6 mg/dL 8-27 below low normal Not Available [facility] ([facility]) [address] [place], [address], 10/10/2019 08:16:17 10/09/1910/10/2019 CMP, serum or plasm a creatinine 0.93 mg/dL 0.76-1 .27 Not Available [facility] ([facility]) [address] [facility] [place], [address], 10/10/2019 08:16:17 10/09/19 20 10/10/2019 CMP, serum or plasm a eGFR if nonafricn AM 88 mL/mi n/1.7 3 >59 Not Available [facility] ([facility]) [address] [facility] [place], [address], 10/10/2019 08:16:17 10/09/19 20 10/10/2019 CMP, serum or plasm a eGFR if africn AM 101 mL/mi n/1.7 3 >59 Not Available [facility] ([facility]) [address] [facility] [place], [address], 10/10/2019 08:16:17 10/09/1910/10/2019 CMP, serum or plasm a BUN/creatini ne ratio 6 10-24 below low normal Not Available [facility] ([facility]) [address] [facility] [place], [address], 10/10/2019 08:16:17 10/09/1910/10/2019 CMP, serum or plasm a sodium 136 mmol/ L 134-14 4 Not Available [facility] ([facility]) [address] [facility] [place], [address], 10/10/2019 08:16:17 10/09/1910/10/2019 CMP, serum or plasm a potassium 4.2 mmol/ L 3.5-5. 2 Not Available [facility] ([facility]) [address] [facility] [place], [address], 10/10/2019 08:16:17 10/09/1910/10/2019 CMP, serum or plasm a chloride 92 mmol/ L 96-106 below low normal Not Available [facility] ([facility]) [address] [facility] [place], [address], 10/10/2019 08:16:17 10/09/1910/10/2019 CMP, serum or plasm a carbon dioxide, total 24 mmol/ L Not Available [facility] ([facility]) [address] [facility] [place], [address], 10/10/2019 08:16:17 10/09/19 20 10/10/2019 CMP, serum or plasm a calcium 9.2 mg/dL 8.6-10 .2 Not Available [facility] ([facility]) [address] [place], [address], 10/10/2019 08:16:17 10/09/1910/10/2019 CMP, serum or plasm a protein, total 7.7 g/dL 6.0-8. 5 Not Available [facility] ([facility]) [address] [place], [address], 10/10/2019 08:16:17 10/09/1910/10/2019 CMP, serum or plasm a albumin 4.5 g/dL 3.8-4. 8 Not Available [facility] ([facility]) [address] [place], [address], 10/10/2019 08:16:17 10/09/1910/10/2019 CMP, serum or plasm a globulin, total 3.2 g/dL 1.5-4. 5 Not Available [facility] ([facility]) [address] [place], [address], 10/10/2019 08:16:17 10/09/1910/10/2019 CMP, serum or plasm a A/G ratio 1.4 1.2-2. 2 Not Available [facility] ([facility]) [address] [place], [address], 10/10/2019 08:16:17 10/09/1910/10/2019 CMP, serum or plasm a bilirubin, total 0.7 mg/dL 0.0-1. 2 Not Available [facility] ([facility]) [address] [facility] [place], [address], 10/10/2019 08:16:17 10/09/19 20 10/10/2019 CMP, serum or plasm a alkaline phosphatase 68 IU/L 39-117 Not Available [facility] ([facility]) [address] [facility] [place], [address], 10/10/2019 08:16:17 10/09/19 20 10/10/2019 CMP, serum or plasm a AST (SGOT) 69 IU/L 0-40 above high normal Not Available [facility] ([facility]) [address] [facility] [place], [address], 10/10/2019 08:16:17 10/09/19 20 10/10/2019 CMP, serum or plasm a ALT (SGPT) 94 IU/L 0-44 above high normal Not Available [facility] ([facility]) [address] [facility], [place], [address], 10/10/2019 08:16:17 10/09/19 20 10/10/2019 lipid panel , serum cholesterol, total 173 mg/dL 100-19 9 Not Available [facility] ([facility]) [address] [facility] [place], [address], 10/10/2019 08:16:17 10/09/19 20 10/10/2019 lipid panel , serum triglyceride s 224 mg/dL 0-149 above high normal Not Available [facility] ([facility]) [address] [facility] [place], [address], 10/10/2019 08:16:17 10/09/19 20 10/10/2019 lipid panel , serum HDL cholesterol 29 mg/dL >39 below low normal Not Available [facility] ([facility]) [address] [facility] [place], [address], 10/10/2019 08:16:17 10/09/19 20 10/10/2019 lipid panel , serum VLDL cholesterol ingrid 45 mg/dL 5-40 above high normal Not Available [facility] ([facility]) [address] [place], [address], 10/10/2019 08:16:17 10/09/19 20 10/10/2019 lipid panel , serum LDL cholesterol calc 99 mg/dL 0-99 Not Available [facility] ([facility]) [address] [facility] [place], [address], 10/10/2019 08:16:17 10/09/19 20 10/10/2019 lipid panel , serum comment: PRACTICE ARCHITECT Not Available [facility] ([facility]) [address] [place], [address], 10/10/2019 08:16:17 10/09/19 20 10/10/2019 BNP (B-ty pe natri ureti c pepti de), serum or plasm a B-type natriuretic peptide 112.7 pg/mL 0.0-10 0.0 above high normal Not Available [facility] ([facility]) [address] [place], [address], 10/10/2019 08:16:18 10/09/1910/10/2019 TSH w/ref sterling TSH 4.730 uIU/m L 0.450- 4.500 above high normal Not Available [facility] ([facility]) [address] [place], [address], 10/10/2019 08:16:19 10/09/1910/10/2019 TSH w/ref sterling triiodothyro nine (T3), free 4.0 pg/mL 2.0-4. 4 Not Available [facility] ([facility]) [address] [place], [address], 10/10/2019 08:16:19 10/09/19 20 10/10/2019 TSH w/ref sterling T4,free (direct) 1.34 NG/dL 0.82-1 .77 Not Available [facility] ([facility]) [address] [facility], [place], [address], 10/10/2019 08:16:19 10/09/1910/11/2019 HbA1c (hemo globi n A1c), blood hemoglobin A1C 11.0 % 4.8-5. 6 above high normal Predi abete s: 5.7 - 6.4 Diabe ester: >6.4 Glyce lucy contr ol for adult s with diabe ester: <7.0 Not Available [facility] ([facility]) [address] [facility], [place], [address], 10/11/2019 06:23:53 10/09/1910/10/2019 pleas e note please note Commen t We have recei nito your reque st for addit ional testi ng or test verif icati on. You will be notif ied if we are unabl e to proce ss your reque st. Not Available [facility] ([facility]) [address] [facility], [place], [address], 10/11/2019 06:23:54 10/09/1910/10/2019 jimy en autho rizat ion written authorizatio n Commen t Jimy en Autho rizat ion Recei nito. Autho rizat ion recei nito from [facility] ST 10-09 Logge d by Stacey gonzalez Not Available [facility] ([facility]) [address] [facility], [place], [address], 10/11/2019 06:23:54 01/01/2001/01/2020 HbA1c (hemo globi n A1c), blood HbA1c 6.3 Not Available In-Office Order Internal Use Only DO Not Attach Compendium DO Not Attach Compendium, Do Not Delete/merge, [id number] 12/31/2019 15:04:07 09/29/1909/26/2019 home sleep study No observ ation record ed. [email or web address] Collier (Radiology) [address] [facility] , [place], [address], 09/29/2019 16:07:25 10/13/19 20 10/08/2019 XR, chest , 2 view No observ ation record ed. [email or web address] Not Available 2019 13:30:00 10/13/19 20 09/28/2019 CT, chest , w/ contr ast No observ ation record ed. [email or web address] Not Available 2019 13:30:00 Result Notes None recorded. Problems Name Problem SNOMED Code Status Onset Date Resolution Date Notes Provider Name and Address Organization Details Recorded Time Obesity 670344144 Active Mariana Clarke MA null, [place] - [facility] 0 13:49:05 Smoker 30397558 Active Mariana Clarke [place] [facility] 0 13:49:05 Knee pain Active Mariana Clarke [place], [place] [facility] 0 13:49:05 Standard chest X-ray abnormal 109600882 Active Mariana Clarke [place], [place] [facility] 0 13:49:05 Allergic rhinitis 37485808 Active Mariana Clarke [place], [place] [facility] 0 13:49:05 Tinea pedis 7315142 Active Mariana Clarke [place], [place] [facility] 0 13:49:05 Problem Notes None recorded. Procedures Surgical History Date Name Laterality Status Provider Name and Address Organization Details Recorded Time Knee Surgery completed Niharika Powers [place] [facility] 03/27/2016 10:51:43 Eye Surgery completed Marcie meza [place] [facility] 01/14/2015 11:46:03 Tonsillectomy completed Marcie westfall [place] - [facility] 01/14/2015 11:46:03 Imaging Results None recorded. Procedure Notes None recorded. Medical Equipment None Reported. Allergies Allergen ID Allergen Name Allergen Category Reaction Reaction Severity Criticality Documentation Date Start Date Code Code System Note Provider Name and Address Organization Details Recorded Time 83775 codeine medicatio n itching severe Not available 03/27/2016 2670 RxNorm Mariana Clarke MA null, [place] - [facility] 0 13:48:44 Medications Name Sig Start Date Stop Date Status Note LastModified by Organization Details LastModified Time amoxicillin 500 mg capsule TAKE 4 CAPSULES NOW THEN TAKE 1 CAPSULE THREE TIMES DAILY *PRESCRIB ER NOT ENROLLED* active Not Available Not Available No t Available furosemide 40 mg tablet active Not Available Not Available Not Available buspirone 5 mg tablet active Not Available Not Available No t Available metformin 500 mg tablet TAKE 1 TABLET BY MOUTH TWICE A DAY WITH MEALS active Not Available Not Available No t Available prednisone 10 mg tablet TAKE 1 TABLET BY MOUTH EVERY DAY active Not Available Not Available No t Available ipratropium 0.5 mg-albutero l 3 mg (2.5 mg base)/3 mL nebulizatio n soln INHALE 3 ML BY NEBULIZAT ION ROUTE 4 TIMES A DAY NEEDED FOR 30 DAYS. 2019 active Not Available Not Available Not Avai lable clindamycin HCl 300 mg capsule 09/08 completed Not Available Not Available Not Available albuterol sulfate 2.5 mg/3 mL (0.083 %) solution for nebulizatio n INHALE 3 ML 3 TIMES A DAY BY NEBULIZAT ION ROUTE NEEDED FOR 30 DAYS. active Not Available Not Available No t Available Stool Softener 100 mg capsule 08/12 completed Not Available Not Available Not Available azithromyci n 250 mg tablet TAKE 2 TABLETS (500 MG) BY ORAL ROUTE ONCE DAILY FOR 1 DAY THEN 1 TABLET (250 MG) BY ORAL ROUTE ONCE DAILY FOR 4 DAYS active Not Available Not Available No t Available aspirin 325 mg tablet 07/20 completed Not Available Not Available Not Available ibuprofen 800 mg tablet 09/08 completed Not Available Not Available Not Available nystatin 100,000 unit/gram topical ointment APPLY TO THE AFFECTED AREA(S) BY TOPICAL ROUTE 2 TIMES PER DAY TO AFFECTED PLANTAR SURFACE FOR ONE MONTH 03/27 completed Not Available Not Available Not Available ondansetron HCl 8 mg tablet Take 1 tablet(s) 3 times a day by oral route as needed. active Not Available Not Available No t Available meloxicam 15 mg tablet active Not Available Not Available Not Available ondansetron HCl 4 mg tablet 08/12 completed Not Available Not Available Not Available prednisone 20 mg tablet TAKE 1 TAB BY MOUTH 3 TIMES DAILY FOR 5 DAYS. active Not Available Not Available No t Available clindamycin HCl 150 mg capsule 03/19 completed Not Available Not Available Not Available potassium chloride ER 10 mEq tablet,exte nded release TAKE 1 TABLET BY MOUTH EVERY DAY active Not Available Not Available No t Available hydroxyzine HCl 50 mg tablet 12/30 completed Not Available Not Available Not Available morphine ER 30 mg tablet,exte nded release 07/20 completed Not Available Not Available Not Available Wellbutrin SR 100 mg tablet, 12 hr sustained-r elease take one tablet daily for 3 days and then one tablet po BID for 27 days 12/19 completed Not Available Not Available Not Available tramadol 50 mg tablet Take 1 tablet twice a day by oral route as needed for 15 days. 09/08 completed Not Available Not Available Not Available triamcinolo ne acetonide 0.1 % topical cream APPLY A THIN LAYER TO THE AFFECTED AREA(S) BY TOPICAL ROUTE 2 TIMES PER DAY 09/08 completed Not Available Not Available Not Available amoxicillin 500 mg tablet Take 1 tablet 3 times a day by oral route for 10 days. 08/03 completed Not Available Not Available Not Available Serevent Diskus 50 mcg/dose powder for inhalation active Not Available Not Available N ot Available oxycodone-a cetaminophe n 5 mg-325 mg tablet TAKE 1 TABLET EVERY 4 TO 6 HOURS NEEDED FOR PAIN active Not Available Not Available No t Available alprazolam 0.5 mg tablet TAEK 1 TABLET BY MOUTH NIGHTLY NEEDED FOR ANXIETY active Not Available Not Available No t Available alprazolam 0.25 mg tablet TAKE 1 TABLET AT BEDTIME NEEDED active Not Available Not Available No t Available prednisolon e acetate 1 % eye drops,suspe nsion 03/27 completed Not Available Not Available Not Available aspirin 325 mg tablet,anatoliy yed release 07/20 completed Not Available Not Available Not Available oxycodone-a cetaminophe n 10 mg-325 mg tablet 07/20 completed Not Available Not Available Not Available Kenalog 10 mg/mL suspension for injection take as directed 09/08 completed Not Available Not Available Not Available doxycycline monohydrate 100 mg capsule 08/03 completed Not Available Not Available Not Available ferrous sulfate 325 mg (65 mg iron) tablet 07/30 completed Not Available Not Available Not Available diclofenac 0.1 % eye drops 03/27 completed Not Available Not Available Not Available tobramycin 0.3 % eye drops 03/27 completed Not Available Not Available Not Available buspirone 10 mg tablet TAKE 1 TABLET BY MOUTH TWICE A DAY active Not Available Not Available No t Available losartan 25 mg tablet TAKE 1 TABLET BY MOUTH EVERY DAY active Not Available Not Available No t Available indomethaci n 50 mg capsule Take 1 capsule 3 times a day by oral route with meals for 30 days. 12/19 completed Not Available Not Available Not Available BD Luer-Dallin Syringe 3 mL 25 gauge x 1 active Not Available Not Available Not Available montelukast 10 mg tablet TAKE 1 TABLET BY MOUTH EVERY DAY active Not Available Not Available No t Available hydroxyzine HCl 25 mg tablet 12/19 completed Not Available Not Available Not Available morphine ER 15 mg tablet,exte nded release active Not Available Not Available Not Available metoprolol succinate ER 25 mg tablet,exte nded release 24 hr active Not Available Not Available Not Available oxycodone-a cetaminophe n 7.5 mg-325 mg tablet 09/08 completed Not Available Not Available Not Available methylpredn isolone 4 mg tablets in a dose pack Take 1 tablet every day by oral route as directed. 08/12 completed Not Available Not Available Not Available albuterol sulfate HFA 90 mcg/actuati on aerosol inhaler INHALE 2 PUFFS BY MOUTH EVERY 4 HOURS active Not Available Not Available No t Available ondansetron 4 mg disintegrat ing tablet TAKE 1 TAB BY MOUTH EVERY 8 HOURS NEEDED FOR NAUSEA 1ST LINE. active Not Available Not Available No t Available cefdinir 300 mg capsule 11/02 completed Not Available Not Available Not Available amoxicillin 875 mg-potassiu m clavulanate 125 mg tablet TAKE 1 TABLET BY MOUTH TWICE A DAY FOR 10 DAYS active Not Available Not Available No t Available hydroxyzine pamoate 25 mg capsule TAKE 1 CAPSULE BY MOUTH EVERY DAY AT [facility] 2019 active Not Available Not Available Not Avai lable neomycin-po lymyxin-hyd rocort 3.5 mg-10,000 unit/mL-1 % ear drops,susp INSTILL 4 DROPS INTO AFFECTED EAR(S) BY OTIC ROUTE 3 TIMES PER DAY FOR 7 DAYS 09/08 completed Not Available Not Available Not Available Pneumovax-2 3 25 mcg/0.5 mL injection syringe PHARMACY [facility]MINIST[facility] active Not Available Not Available No t Available Ciprodex 0.3 %-0.1 % ear drops,suspe nsion INSTILL 4 DROPS INTO AFFECTED EAR(S) BY OTIC ROUTE 2 TIMES PER DAY FOR 7 DAYS 09/08 completed Not Available Not Available Not Available OneTouch Verio test strips USE TO TEST BLOOD SUGARS ONCE A DAY 2021 active Not Available Not Available Not Avai lable Chantix Starting Month Box 0.5 mg (11)-1 mg (42) tablets in dose pack 12/19 completed Not Available Not Available Not Available OneTouch Verio Meter active Not Available Not Available Not Available Qvar RediHaler 80 mcg/actuati on HFA breath activated aerosol INHALE 2 PUFFS BY MOUTH TWICE A DAY active Not Available Not Available No t Available OneTouch Delica Plus Lancet 33 gauge active Not Available Not Available Not Available Vitals Date Recorded Body height Oxygen saturation Oxygen saturation in Arterial blood by Pulse oximetry Systolic And Diastolic Provider Name and Address Organization Details Last Updated DateTime 09/10/2019 185.42 cm 97 % 97 % 160/88 mm[Hg] Elizabeth Levy LPN [facility] 0 11:55:09 Date Recorded Body height Body mass index (BMI) Body weight Heart rate Respiratory rate Systolic And Diastolic Provider Name and Address Organization Details Last Updated DateTime 0 185.42 cm 37.1 kg/m2 128092. 73 g 84 /min 16 /min 138/82 mm[Hg] ROBERT Kilpatrick [facility] 0 11:30:56 Date Recorded Body height Provider Name an d Address Organization Details Last Updated DateTime 11/03/2019 185.42 cm Mariana Clarke MA [facility] 2019 13:43:45 Date Recorded Body height Body mass index (BMI) Body weight Heart rate Respiratory rate Systolic And Diastolic Provider Name and Address Organization Details Last Updated DateTime 0 185.42 cm 34.4 kg/m2 027009. 96 g 86 /min 20 /min 130/80 mm[Hg] Mita Khan MA [facility] 0 14:43:30 Social History Question Answer Notes LastModified by Organizat ion Details LastModified Time Tobacco Smoking Status Current Every Day Smoker Quit Smoking May 2019 Mariana Clarke MA [facility], [facility] 08/12/2018 16:32:29 What Was The Date Of Your Most Recent Tobacco Screening? 10/09/2019 Information not available 10/09/2019 How Much Tobacco Do You Smoke? No Cut Done To 3/4 Ppd [email or web address] Information not available 12/19/2017 On What Date Was Tobacco Cessation Counseling Provided? 10/09/2019 Information not available 10/09/2019 How Many Years Have You Smoked Tobacco? 55 Information not available 09/09/2019 Sex: Unknown Functional Status Question Answer Note LastModified by Organizat ion Details LastModified Time Do you or have you ever used smokeless tobacco? Never used smokeless tobacco Information not available 09/09/2019 Do you or have you ever used e-cigarettes or vape? Never used electronic cigarettes Information not available 09/09/2019 Mental Status None recorded. Family History Nothing Reported. Medical History Condition Response Muscle, Joint, or Bone Problems Y Allergies Y Immunizations Vaccine Type Date Status Note Provider Nam e and Address Organization Details Recorded Time pneumococcal polysaccharide PPV23 0 completed Mirlande Lara RN [facility], [place] [facility] 02/19/2020 09:17:08 Past Encounters Encounter ID Performer Location Encounter Start Date Encounter Closed Date Diagnosis/Indication Diagnosis SNOMED-CT Code Diagnosis ICD10 Code Diagnosis Note [id number] MD Сергей Castro [facility] [address] [place] [address] 1 01/14/2015 11:20:14 01/14/2015 13:45:09 Pre-surgery evaluation 029317601 Obesity 622459809 Smoker 59003644 Knee pain 25270726 [id number] MD Сергей Castro [facility] [address] [place] [address] 35396-874 1 08/30/2015 10:55:13 09/03/2015 17:41:11 Allergic rhinitis 23016080 J30.9 Obesity 500696776 E66.9 [id number] MD Сергей Castro [facility] [address] [place] [address] 8[address]01-[address] 1 01/31/2016 11:02:21 01/31/2016 14:30:05 Allergic rhinitis 02274050 J30.9 Tinea pedis 9145206 B35. 3 [id number] MD Сергей Castro [place] [address] [place] [address]77-391 1 03/27/2016 10:35:08 03/29/2016 09:36:11 Knee pain 18519655 M25.569 Obesity 473202408 E66.9 Otitis externa 5078473 H 60.92 Smoker 21056994 F17.243 [id number] MD Сергей Castro [place] [address] [place] [address]67-[address] 1 07/20/2016 10:02:29 07/24/2016 12:34:41 Obesity 420880294 E66.9 Seasonal a llergic rhinitis 193632219 J30.2 Knee pain 20447326 M25.5 69 Trying to give up smoking 474943497 Z72.0 [id number] Antony Arriaza MD [place] [address] [place] [address] 11886-705 1 12/28/2016 14:15:00 12/29/2016 12:10:56 Allergic rhinitis 25456400 J30.9 [id number] MD Сергей Castro [place] [address] [place] [address]854-279 1 07/30/2017 15:50:56 07/31/2017 10:32:17 Allergic rhinitis 18817342 J30.9 Smoker 37564315 F17.200 Obesity 502620109 E66.9 Knee pain 09085894 M25.5 69 [id number] MD Lonny Castro [address] [facility] [place] [address] 12/19/2017 10:28:51 12/26/2017 12:02:53 Seasonal allergic rhinitis 678527565 J30.2 Pain of elbow region 743 67090 M25.576 [id number] MD Lonny Castro [address] [facility] [place] [address] 08/12/2018 16:24:36 08/13/2018 16:07:58 Ex-smoker 1587602 Z87.891 Chronic ob structive pulmonary disease 15948745 J44.9 Obesity 340433431 E66.9 Allergic rhinitis 585351 04 J30.9 Pt will come back for this injection as a nurse visit in a couple weeks. Acute bronchitis 4137314 2 J20.9 already has a rx for clindamyci n [id number] MD Lonny Castro [address] [facility] [place] [address] 08/20/2018 10:11:53 08/20/2018 10:42:31 Seasonal allergy 758275428 J30.2 [id number] MD Lonny Castro [address] [facility] [place] [address] 03/19/2019 14:18:52 03/24/2019 09:08:35 Smoker 75220909 F17.200 Pt would like to quit again. Dyspnea 084700187 R06.00 History of urinary stone 155105553 Z87.442 Eczema 42664659 L30.9 Overweight 687882121 E66 .3 Pt exercises a great deal. Chronic ob structive pulmonary disease 66072733 J44.9 Adult heal th examination 544801201 Z00.00 Extensive blood work was done at ER visit on 08-03-18; glucose and bnp were elevated. We will repeat these. [id number] MD Lonny Castro [address] [facility] [place] [address] 07/25/2019 15:14:57 08/04/2019 09:26:12 Edema 430359738 R60.9 Seasonal allergy 7533410 04 J30.2 Pt will return another time to receive the Kenalog shot. [id number] MD Lonny Castro [address] [facility] [place] [address] 09/09/2019 10:09:34 09/10/2019 09:26:18 Dyspnea 605525845 R06.00 Sleep apnea 33943721 G47 .30 Seasonal a llergic rhinitis 799295099 J30.2 Dependence on supplemental oxygen 3615995437 07 Z99.81 Pt was advised not to use a higher concentrat ion of 2 L of oxygen/min fransico. [id number] MD Lonny Castro [address] [facility] [place] [address] 09/10/2019 09:26:22 09/11/2019 08:45:13 Obesity 178907850 E66.9 Elevated blood-pressure reading without diagnosis of hypertension 410045788 R03.0 [id number] MD Lonny Castro [address] [facility] [place] [address] 10/09/2019 11:18:44 10/13/2019 08:32:15 Ex-smoker 9125440 Z87.891 Cough 72046021 R05 Obesity 630495475 E66.9 Nocturnal dyspnea 459181 009 R06.00 [id number] MD Lonny Castro [address] [facility] [place] [address] 11/03/2019 09:33:28 11/11/2019 09:54:05 Type 2 diabetes mellitus 34285924 E11.9 Blood sugars are better than before and doing well on metformin. Intentiona l weight loss 355678878 R63.8 Dependence on continuous positive airway pressure ventilation 209559199 Z99.11 pt sleeps better with the CPAP machine Pt was asking for Xanax--Vis taril now rx'd for anxiety Dyspnea 169908903 R06.00 A limited supply of prednisone has been rx'd--pt was informed that this can elevate his blood sugar levels. [id number] MD Lonny Castro [address] [facility] [place] [address] 12/31/2019 14:36:30 01/05/2020 06:43:02 Seasonal allergic rhinitis 460811027 J30.2 Type 2 milady betes mellitus 13641608 E11.9 Blood sugars are better than before and doing well on metformin. Arthritis 0367181 M19.90 Dependence on continuous positive airway pressure ventilation 228322344 Z99.11 a limited amount was rx'd to help with sleep using th CPAP machine Health Concerns Section Related Observation LastModified by Organization Detai ls LastModified Time None Recorded Concern Status LastModified by Organization Details LastModified Time None Recorded Advance Directives Directive None Recorded Payers Insurance Date Sequence Insurance Name Policy Number Policy Aaron Covered Member ID Aaron Member ID Guarantor Name 11/06/2024 1 [facility] (MEDICAID HMO) [id number] Jaron Iyer [id number] Jaron Iyer 11/06/2024 1 [facility] (MEDICARE REPLACEMENT/ ADVANTAGE - PPO) [id number] Jaron Iyer [id number] Jaron Iyer 11/06/2024 2 [place] [employer] Jaron Iyer [id number] Jaron Iyer 11/06/2024 3 [place] Jaron Iyer [id number] Jaron Iyer 01/16/2017 1 [place] [employer] Jaron Iyer [id number] Jaron Iyer Notes Date Note Type Note Provider Name and Address Organization Details Recorded Time 09/09/2019 text/html Phone visit chicho wynn at 1:07 p.m. Pt states that he has been waking up at [facility] with dyspnea. He was told that he should have sleep studies done. He does not think that he has gained wt but actually thinks that he has lost wt. Elizabeth Levy LPN [facility] 09/10/2019 11:56:29 10/09/2019 text/html Pt presents in person with concerns about his breathing at [facility]. [facility] for evaluation but states that he left after three hours for lack of attention. Pt denies breathing issues during the day but state that it is at [facility] that he has issues trying to breathe using the CPAP recently ordered by sleep study provider Dr. Langford. Antony Arriaza MD Attn: [address] [place], [address], [facility] 10/10/2019 12:29:08 11/03/2019 text/html Phone visit chicho wynn at 1:19 p.m. Pt is sleeping better with the CPAP machine. He is feeling better overall now that blood sugars are being controlled. Antony Arriaza MD Attn: [employer],[address] [place], [address], [facility] 11/10/2019 17:49:58 12/31/2019 text/html Pt presents for follow up to DM--he has lost wt, improved diet, and describes improved blood sugar levels. Antony Arriaza MD Attn: Accounting,[address] [place], [address], [place] [facility] 01/02/2020 07:31:08
--- OUTSIDE RECORDS SUMMARY | 2024-12-03 11:49 | XMS_ITS | Clinical Summary ---
Author Organization [facility] Address [address] [place] [address] Care Team Providers Care Leak [employer] Name Role Phone Kevon Hogan MD Unavailable [phone] Ludivina Rosette Unavailable [phone] Rusty Lam MD Unavailable [phone] Maria De Jesus Kaur PT Unavailable Unavailable Rickie Aleman MD Primary Care Provider [phone] Allergies Active Allergy Reactions Criticality Noted Date Comments Codeine Nausea & Vomiting High Codeine Dizziness,Vomiting Low 05/09/2021 Hydrocodone Nausea only High 05/09/2018 Medications blood glucose diagnostic (OneTouch Verio test strips) strip OneTouch Verio test strips Active OneTouch Verio test strips strip 1 each by other route 3 (three) times a week 03/13/20 21 Active aspirin 81 mg enteric coated tablet Take 1 tablet (81 mg total) by mouth daily Active gabapentin (NEURONTIN) 300 mg capsule 03/08/20 24 Active carvediloL (COREG) 12.5 mg tablet TAKE 1 TABLET(12.5 MG) BY MOUTH TWICE DAILY WITH MEALS 180 tablet 3 05/21/19 25 Active semaglutide (Wegovy) 0.5 mg/0.5 mL auto-injector INJECT 0.5MG UNDER THE SKIN ONCE A WEEK 2 mL 11 07/15/19 25 Active amoxicillin 500 mg capsule TK FOUR CS PO 1 HOUR B DAPP 07/17/19 25 Active donepeziL (ARICEPT) 10 mg tablet Take half tablet by mouth once a day for two weeks, then one tablet once a day 30 tablet 11 07/23/19 25 Active furosemide (LASIX) 40 mg tablet TAKE 1 TABLET BY MOUTH EVERY MORNING AND 1/2 TABLET EVERY AFTERNOON 135 tablet 3 08/06/19 25 Active montelukast (SINGULAIR) 10 mg tablet TAKE 1 TABLET(10 MG) BY MOUTH EVERY NIGHT 100 tablet 08/14/19 25 Active atorvastatin (LIPITOR) 80 mg tablet TAKE 1 TABLET(80 MG) BY MOUTH DAILY 30 tablet 11 09/26/19 25 Active Symbicort 160-4.5 mcg/actuation inhaler INHALE 2 PUFFS BY MOUTH TWICE DAILY 10.2 g 1 10/15/19 25 Active ipratropium-al buteroL (DUO-NEB) 0.5-2.5 mg/3 mL nebulizer solution USE 3 ML VIA NEBULIZER EVERY 6 HOURS 1080 mL 11/25/19 25 Active albuterol HFA (PROVENTIL HFA,VENTOLIN HFA,PROAIR HFA) 90 mcg/actuation inhaler INHALE 2 PUFFS BY MOUTH EVERY 6 HOURS NEEDED FOR SHORTNESS OF BREATH 6.7 g 12/03/19 25 Active sulfamethoxazo le-trimethopri m (BACTRIM DS) 800-160 mg per tabletIndicati ons:Urinary pain Take 1 tablet by mouth 2 (two) times a day for 7 days 14 tablet 11/29/19 25 025 Active ipratropium-al buteroL (DUO-NEB) 0.5-2.5 mg/3 mL nebulizer solution USE 3 ML VIA NEBULIZER EVERY 6 HOURS 360 mL 1 09/26/19 25 025 Discontinued albuterol HFA (PROVENTIL HFA,VENTOLIN HFA,PROAIR HFA) 90 mcg/actuation inhaler INHALE 2 PUFFS BY MOUTH EVERY 6 HOURS NEEDED FOR SHORTNESS OF BREATH 6.7 g 11/04/19 25 025 Discontinued Active Problems Problem Noted Date Diagnosed Date Memory loss 07/27/2024 TBI (traumatic brain injury) 04/17/2024 Assessment & Plan (10/02/2024 3:57 PM CDT): Continue neuro follow up Cotinue donepezil 10 mg every day Positive colorectal cancer screening using Colog uard test 03/24/2024 Encounter for screening colonoscopy 03/24/2024 Annual physical exam 01/28/2024 Lumbar radiculopathy 06/27/2023 Assessment & Plan (06/27/2023 11:47 AM ELECTRONIC SERVICE TECHNICIAN): Failed 6 months of home care consultant and recommend MRI lumbar spine and following up with pain management as they direct Difficulty controlling anger 06/27/2023 Assessment & Plan (06/27/2023 11:51 AM ELECTRONIC SERVICE TECHNICIAN): Outpatient counseling referral requested. Increase exercise. Mixed hyperlipidemia 01/02/2022 Assessment & Plan (10/02/2024 4:00 PM CDT): Lab Results Component Value Date CHOL 145 12/22/2022 CHOL 108 12/30/2021 CHOL 167 12/01/2021 Lab Results Component Value Date HDL 35 (L) 12/22/2022 HDL 38 (L) 12/30/2021 HDL 35 (L) 12/01/2021 Lab Results Component Value Date LDLCALC See Comment 12/22/2022 LDLCALC 51 12/30/2021 LDLCALC 69 12/01/2021 LDLDIRECT 74 12/22/2022 Lab Results Component Value Date TRIG 416 (H) 12/22/2022 TRIG 97 12/30/2021 TRIG 313 (H) 12/01/2021 No results found for: POCCHDLR No results found for: POCNONHDL No results found for: POCCHLPL Recheck lipid panel now Not at goal Elevated trigs Continue lipitor 80 mg every day Assessment & Plan (04/17/2024 3:01 PM ELECTRONIC SERVICE TECHNICIAN): Lab Results Component Value Date CHOL 145 12/22/2022 CHOL 108 12/30/2021 CHOL 167 12/01/2021 Lab Results Component Value Date HDL 35 (L) 12/22/2022 HDL 38 (L) 12/30/2021 HDL 35 (L) 12/01/2021 Lab Results Component Value Date LDLCALC See Comment 12/22/2022 LDLCALC 51 12/30/2021 LDLCALC 69 12/01/2021 LDLDIRECT 74 12/22/2022 Lab Results Component Value Date TRIG 416 (H) 12/22/2022 TRIG 97 12/30/2021 TRIG 313 (H) 12/01/2021 No results found for: POCCHDLR No results found for: POCNONHDL No results found for: POCCHLPL Recheck lipid panel now Not at goal Elevated trigs Continue lipitor 80 mg every day Assessment & Plan (04/02/2024 3:48 PM ELECTRONIC SERVICE TECHNICIAN): Lab Results Component Value Date CHOL 145 12/22/2022 CHOL 108 12/30/2021 CHOL 167 12/01/2021 Lab Results Component Value Date HDL 35 (L) 12/22/2022 HDL 38 (L) 12/30/2021 HDL 35 (L) 12/01/2021 Lab Results Component Value Date LDLCALC See Comment 12/22/2022 LDLCALC 51 12/30/2021 LDLCALC 69 12/01/2021 LDLDIRECT 74 12/22/2022 Lab Results Component Value Date TRIG 416 (H) 12/22/2022 TRIG 97 12/30/2021 TRIG 313 (H) 12/01/2021 No results found for: POCCHDLR No results found for: POCNONHDL No results found for: POCCHLPL Recheck lipid panel now Not at goal Elevated trigs Continue lipitor 80 mg every day Assessment & Plan (01/28/2024 1:04 PM CDT): Lab Results Component Value Date CHOL 145 12/22/2022 CHOL 108 12/30/2021 CHOL 167 12/01/2021 Lab Results Component Value Date HDL 35 (L) 12/22/2022 HDL 38 (L) 12/30/2021 HDL 35 (L) 12/01/2021 Lab Results Component Value Date LDLCALC See Comment 12/22/2022 LDLCALC 51 12/30/2021 LDLCALC 69 12/01/2021 LDLDIRECT 74 12/22/2022 Lab Results Component Value Date TRIG 416 (H) 12/22/2022 TRIG 97 12/30/2021 TRIG 313 (H) 12/01/2021 No results found for: POCCHDLR No results found for: POCNONHDL No results found for: POCCHLPL Recheck lipid panel now Not at goal Elevated trigs Continue lipitor 80 mg every day Assessment & Plan (06/27/2023 11:48 AM ELECTRONIC SERVICE TECHNICIAN): Continue atorvastatin check lipids and LFTs this week and call back for results Cardiopulmonary arrest with successful resuscita tion 12/13/2021 Positive urine drug screen 12/13/2021 Coronary artery disease 09/23/2021 Assessment & Plan (01/28/2024 1:03 PM CDT): Continue current medication regimen follow up with Cardiology as they direct Assessment & Plan (06/27/2023 11:50 AM ELECTRONIC SERVICE TECHNICIAN): Continue current medication regimen follow up with Cardiology as they direct Assessment & Plan (12/22/2022 3:18 PM CDT): Continue current medication regimen follow up with [facility] certified [facility] associate as they direct Assessment & Plan (03/30/2022 12:11 PM ELECTRONIC SERVICE TECHNICIAN): Continue current medication regimen follow up with [facility] certified network associate as they direct. Assessment & Plan (01/16/2022 11:22 PM CDT): Continue current medication regimen follow up with [facility] associate as they direct Assessment & Plan (09/23/2021 5:26 PM CDT): Continue current medication regimen follow up with [facility] certified network associate as they direct. Healthcare maintenance 09/23/2021 Assessment & Plan (01/28/2024 1:04 PM CDT): Flu shot each February. Tetanus booster every 10 years. COVID booster, Shingrix, flu vaccine, RSV vaccine recommended this fall. Repeat low-dose CT chest for lung cancer screening ordered and he is aware the pros and cons of this decision. PSA yearly. Cologuard ordered and he is aware the pros and cons of this decision verses colonoscopy. Call back for results. Will see him back in 6 months with lab sooner if needed. Assessment & Plan (12/22/2022 3:19 PM CDT): Flu shot each February. Tetanus booster every 10 years. COVID booster, Shingrix, flu vaccine, RSV vaccine recommended this fall. Repeat low-dose CT chest for lung cancer screening ordered and he is aware the pros and cons of this decision. PSA yearly. Cologuard ordered and he is aware the pros and cons of this decision verses colonoscopy. Call back for results. Will see him back in 6 months with lab sooner if needed. Assessment & Plan (09/23/2021 5:28 PM CDT): Flu shot each February. Tetanus booster every 10 years. COVID vaccine and Shingrix recommended. Low-dose CT chest ordered. PSA before next visit. Colonoscopy due and will discuss next visit. Will see him back in 3 months with lab sooner if needed. Anxiety 06/01/2021 Primary osteoarthritis of left hip 03/14/2021 Overview (03/14/2021): Added automatically from request for surgery [id number] Mild intermittent asthma without complication Lung nodule 07/22/2020 Overview (12/27/2021): multiple stable nodules 07/2020 [email or web address] No suspicious nodules 10/[address] chest Assessment & Plan (09/23/2021 5:23 PM CDT): Repeat low-dose CT chest at his convenience and call back for results CVA (cerebral vascular accident) ([facility]) 05/04 Overview (09/23/2021): Retinal occlusion 2019 Assessment & Plan (01/28/2024 1:03 PM CDT): Follow-up with neurology/cardio as they direct. Continue aspirin, atorvastatin, carvedilol. Assessment & Plan (06/27/2023 11:47 AM ELECTRONIC SERVICE TECHNICIAN): Follow-up with neurology as they direct. Continue aspirin, atorvastatin, carvedilol. Chronic bronchitis 04/19/2020 Centrilobular emphysema 10/23/2019 Assessment & Plan (01/28/2024 1:03 PM CDT): Continue albuterol prn, symbicort 160-4.5 mcg 2 puffs bid Recommend pulm eval in setting of hx of cardiopulm arrest, respiratory failure SHONDA (obstructive sleep apnea) 10/23/2019 Assessment & Plan (12/22/2022 3:16 PM CDT): Patient is compliant with the CPAP machine and gets symptomatic relief. Assessment & Plan (01/16/2022 11:22 PM CDT): Patient is compliant with the CPAP machine and gets symptomatic relief. Assessment & Plan (09/23/2021 5:23 PM CDT): Patient is compliant with the CPAP machine and gets symptomatic relief. Pulmonary HTN (CMS/HCC) 10/23/2019 Class 2 severe obesity with serious comorbidity and body mass index (BMI) of 38.0 to 38.9 in adult 07/14/2019 Assessment & Plan (10/02/2024 3:55 PM CDT): Wt Readings from Last 3 Encounters: 10/02/24 125 kg (275 lb 8 oz) 08/06/24 126.1 kg (278 lb) 07/22/24 127.6 kg (281 lb 3.2 oz) BMI Readings from Last 3 Encounters: 10/02/24 37.36 kg/m 08/06/24 37.70 kg/m 07/22/24 38.13 kg/m Not at goal of bmi <30 Continue diet and exercise BMI Follow-up includes: nutrition counseling and exercise counseling. Assessment & Plan (04/17/2024 2:58 PM ELECTRONIC SERVICE TECHNICIAN): Wt Readings from Last 3 Encounters: 04/17/24 128.8 kg (284 lb) 04/02/24 128.5 kg (283 lb 3.2 oz) 01/28/24 122.6 kg (270 lb 3.2 oz) BMI Readings from Last 3 Encounters: 04/17/24 38.51 kg/m 04/02/24 38.40 kg/m 01/28/24 36.64 kg/m Not at goal of bmi <30 Continue diet and exercise BMI Follow-up includes: nutrition counseling and exercise counseling. Assessment & Plan (04/02/2024 3:43 PM ELECTRONIC SERVICE TECHNICIAN): Wt Readings from Last 3 Encounters: 04/02/24 128.5 kg (283 lb 3.2 oz) 01/28/24 122.6 kg (270 lb 3.2 oz) 10/29/23 127.9 kg (282 lb) BMI Readings from Last 3 Encounters: 04/02/24 38.40 kg/m 01/28/24 36.64 kg/m 10/29/23 38.25 kg/m Not at goal of bmi <30 Continue diet and exercise BMI Follow-up includes: nutrition counseling and exercise counseling. Assessment & Plan (01/28/2024 1:03 PM CDT): Wt Readings from Last 3 Encounters: 10/29/23 127.9 kg (282 lb) 07/30/23 129.7 kg (286 lb) 06/27/23 128.4 kg (283 lb 1.6 oz) BMI Readings from Last 3 Encounters: 10/29/23 38.25 kg/m 07/30/23 38.78 kg/m 06/27/23 38.40 kg/m Not at goal of bmi <30 Continue diet and exercise BMI Follow-up includes: nutrition counseling and exercise counseling. Allergic rhinitis 07/13/2019 Smoker 07/13/2019 Hypertension Assessment & Plan (10/02/2024 3:56 PM CDT): BP Readings from Last 3 Encounters: 10/02/24 110/70 07/22/24 140/71 04/17/24 130/80 Vitals BP 110/70 (BP Location: Left arm, Patient Position: Sitting) Pulse 83 Resp 16 Ht 182.9 cm (6' 0.01) Wt 125 kg (275 lb 8 oz) SpO2 95% BMI 37.36 kg/m Lab Results Component Value Date POTASSIUM 3.9 12/22/2022 At goal Cotninue coreg 12.5 mg bid BP Readings from Last 3 Encounters: 10/02/24 110/70 07/22/24 140/71 04/17/24 130/80 Vitals BP 110/70 (BP Location: Left arm, Patient Position: Sitting) Pulse 83 Resp 16 Ht 182.9 cm (6' 0.01) Wt 125 kg (275 lb 8 oz) SpO2 95% BMI 37.36 kg/m Lab Results Component Value Date POTASSIUM 3.9 12/22/2022 At goal Cotninue coreg 12.5 mg bid Assessment & Plan (04/17/2024 3:01 PM ELECTRONIC SERVICE TECHNICIAN): BP Readings from Last 3 Encounters: 04/17/24 130/80 04/02/24 118/78 01/28/24 11878 Vitals BP 130/80 (BP Location: Right arm, Patient Position: Sitting) Pulse 91 Temp 36.9 C (98.4 F) (Oral) Resp 18 Ht 182.9 cm (6' 0.01) Wt 128.8 kg (284 lb) BMI 38.51 kg/m Lab Results Component Value Date POTASSIUM 3.9 12/22/2022 At goal Cotninue coreg 12.5 mg bid BP Readings from Last 3 Encounters: 04/17/24 130/80 04/02/24 118/78 01/28/24 118/78 Vitals BP 130/80 (BP Location: Right arm, Patient Position: Sitting) Pulse 91 Temp 36.9 C (98.4 F) (Oral) Resp 18 Ht 182.9 cm (6' 0.01) Wt 128.8 kg (284 lb) BMI 38.51 kg/m Lab Results Component Value Date POTASSIUM 3.9 12/22/2022 At goal Cotninue coreg 12.5 mg bid Assessment & Plan (04/02/2024 3:46 PM ELECTRONIC SERVICE TECHNICIAN): BP Readings from Last 3 Encounters: 04/02/24 118/78 01/28/24 118/78 10/29/23 148/92 Vitals BP 118/78 (BP Location: Left arm, Patient Position: Sitting) Pulse 86 Resp 16 Ht 182.9 cm (6' 0.01) Wt 128.5 kg (283 lb 3.2 oz) SpO2 95% BMI 38.40 kg/m Lab Results Component Value Date POTASSIUM 3.9 12/22/2022 At goal Cotninue coreg 12.5 mg bid Assessment & Plan (01/28/2024 1:54 PM CDT): BP Readings from Last 3 Encounters: 01/28/24 118/78 10/29/23 148/92 07/30/23 (!) 166/103 Vitals BP 118/78 (BP Location: Left arm, Patient Position: Sitting) Pulse 90 Resp 16 Ht 182.9 cm (6' 0.01) Wt 122.6 kg (270 lb 3.2 oz) SpO2 94% BMI 36.64 kg/m Lab Results Component Value Date POTASSIUM 3.9 12/22/2022 At goal Cotninue coreg 12.5 mg bid Assessment & Plan (06/27/2023 11:48 AM ELECTRONIC SERVICE TECHNICIAN): Well controlled on carvedilol Assessment & Plan (12/22/2022 3:17 PM CDT): Blood pressure well controlled on carvedilol Assessment & Plan (03/30/2022 12:10 PM ELECTRONIC SERVICE TECHNICIAN): Well controlled on the current regimen. Avoidance of salt, proper body weight, and routine exercise recommended. Assessment & Plan (01/16/2022 11:22 PM CDT): Well controlled on the current regimen. Avoidance of salt, proper body weight, and routine exercise recommended. Assessment & Plan (09/23/2021 5:23 PM CDT): Well controlled on the current regimen. Avoidance of salt, proper body weight, and routine exercise recommended. COPD (chronic obstructive pulmonary disease) Assessment & Plan (01/28/2024 1:03 PM CDT): Stable on Symbicort twice daily and albuterol as needed Assessment & Plan (06/27/2023 11:50 AM ELECTRONIC SERVICE TECHNICIAN): Stable on Symbicort twice daily and albuterol as needed Assessment & Plan (12/22/2022 3:17 PM CDT): Stable on Symbicort use albuterol as needed Assessment & Plan (03/30/2022 12:10 PM ELECTRONIC SERVICE TECHNICIAN): Stable on his Symbicort. Assessment & Plan (01/16/2022 11:25 PM CDT): Respiratory failure improved with treatment of his pneumonia and COPD exacerbation. He has normal oxygenation on room air. Continue Symbicort and use DuoNebs as needed. No signs of current sepsis with normal pulse respiratory rate temperature and no source of infection currently with his most recent chest x-ray showing resolution of his infiltrates. Repeat CBC for previously elevated white count which is likely due to combination of infection and more recently steroid administration. Assessment & Plan (09/23/2021 5:25 PM CDT): Continue smoking cessation and would recommend using Symbicort on a regular basis. Use albuterol as needed. PAD (peripheral artery disease) Assessment & Plan (09/23/2021 5:25 PM CDT): Continue aspirin, atorvastatin, carvedilol and follow up Dr. Lam as he directs. Dilated cardiomyopathy Assessment & Plan (09/23/2021 5:25 PM CDT): Most recent echocardiogram showed normalized ejection fraction. Continue current medication regimen follow up with [facility] certified network associate as they direct Resolved Problems Problem Noted Date Diagnosed Date Resolved Date Dupuytren's contracture of left hand 03/12/2023 01/28/2024 Assessment & Plan (03/12/2023 6:25 PM CDT): Recommended plastics referral. Paresthesia 03/12/2023 01/28/2024 Assessment & Plan (03/12/2023 6:26 PM CDT): Nerve conduction study and call back for results. Suspect carpal tunnel syndrome and will likely refer to plastics for evaluation of this and his Dupuytren's contracture. Cervicalgia 03/12/2023 01/28/2024 Assessment & Plan (03/12/2023 6:26 PM CDT): X-rays of his cervical spine and call back for results. Extend physical therapy to treat both his neck and shoulder. Pain management referral. Subclinical hypothyroidism 12/22/2022 0 01/28/2024 Assessment & Plan (12/22/2022 3:18 PM CDT): Asymptomatic and will check TSH and FT4 in 6 months. Injury of left shoulder 11/15/202201/12 Assessment & Plan (01/15/2023 6:48 PM CDT): PT evaluation and treatment. Continue naproxen as needed. Call orthopedist for evaluation. Acute suppurative otitis media 04/10/2022 01/28/2024 Assessment & Plan (04/10/2022 6:05 AM ELECTRONIC SERVICE TECHNICIAN): Amoxicillin and call back if no improvement Anemia 03/30/2022 01/28/2024 Overview (12/22/2022): Normal iron, b12,folate 12/2022; TSH 4.35, Free t4 0.97 Assessment & Plan (12/22/2022 2:44 PM CDT): Resolved, labs normal. Assessment & Plan (03/30/2022 12:10 PM ELECTRONIC SERVICE TECHNICIAN): Check labs before next visit. Fatty liver 12/13/2021 01/28/2024 Toxic metabolic encephalopathy 12/13/2021 01/28/2024 IFG (impaired fasting glucose) 09/23/2021 01/28/2024 Assessment & Plan (06/27/2023 11:49 AM ELECTRONIC SERVICE TECHNICIAN): Reduce sugars and carbs increase exercise and check A1c this week and call back for results. Assessment & Plan (12/22/2022 3:17 PM CDT): Patient should reduce sugar and carbs, increase exercise, maintain proper body weight, and will check an A1c once or twice yearly. Assessment & Plan (03/30/2022 12:10 PM ELECTRONIC SERVICE TECHNICIAN): Patient should reduce sugar and carbs, increase exercise, maintain proper body weight, and will check an A1c once or twice yearly. Assessment & Plan (01/16/2022 11:22 PM CDT): Patient should reduce sugar and carbs, increase exercise, maintain proper body weight, and will check an A1c once or twice yearly. Assessment & Plan (09/23/2021 5:26 PM CDT): A1c has improved greatly with close to 80 lb weight loss per his report. Check A1c again before next visit. Elevated troponin 05/10/2021 01/28/2024 Lactic acidosis 05/10/2021 01/28/2024 Pneumonia of right lower lob e due to infectious organism 05/09/2021 01/28/2024 Sepsis 05/09/2021 01/28/2024 Acute on chronic respiratory failure with hypoxia 05/09/2021 01/28/2024 Elevated LFTs 04/19/2020 01/28/2024 Overview (09/23/2021): Hepatic steatosis on ct 09/2019 Elevated liver enzymes 04/19/202009/23 Gynecomastia 04/19/2020 01/28/2024 Hyperkalemia 04/19/2020 01/28/2024 Inhalation of noxious fumes 04/19/2020 09/23/2021 Leukocytosis 04/19/2020 01/28/2024 Tachycardia 04/19/2020 09/23/2021 Hypoglycemia 10/23/2019 09/19/2021 Assessment & Plan (09/19/2021 4:26 PM CDT): This is a resolved proble, Saw the dietitian Reviewed signs and symptoms of hypoglycemia Reviewed treatment for hypoglycemia Previous A!C level 5.1, 5.4, today 5.3- today 5.6- prediabetes Encouraged to continue monitoring for hypoglycemia Assessment & Plan (06/20/2021 10:05 AM ELECTRONIC SERVICE TECHNICIAN): This is a chronic problem associated with shortness of breath and lightheaded ness Referred to the dietitian Labs ordered Reviewed signs and symptoms of hypoglycemia Reviewed treatment for hypoglycemia Labs ordered. Previous A!C level 5.1, 5.4, today 5.3-not diabetic Encouraged to continue monitoring for hypoglycemia Influenza A 07/14/2019 09/23/2021 Acute exacerbation of COPD w ith asthma ([facility]) 07/14/2019 01/28/2024 Essential hypertension 07/14/201909/23 Assessment & Plan (09/19/2021 4:23 PM CDT): This is a chronic condition which is at goal Goal is <140/90 Personally reviewed labs. B/p-144/84 on carvedilol, losartan and spironolactone. Avoid caffeine, caffeine will raise blood pressure and excessive alcohol consumption. Monitor your weight and B/P. Encouraged to take medications as prescribed. Acute on chronic respiratory failure with hypoxia and hypercapnia 07/14/2019 01/28/2024 Knee pain 07/13/2019 01/28/2024 Standard chest x-ray abnormal 07/13/2019 09/23/2021 Tinea pedis 07/13/2019 01/28/2024 Dental abscess 01/07/2019 01/28/2024 Facial cellulitis 01/07/2019 01/28/2024 Subacromial impingement of left shoulder 05/22/2018 01/28/2024 Atypical pneumonia 2 Sleep apnea 09/23/2021 Type 2 diabetes mellitus with hyperlipidemia 06/27/2023 Overview (09/23/2021): Improved a1c with 80lb weight loss Encounters Date Type Department Care Team Description 11/30/2024 Results Follow-Up [facility] [place] [address] [phone] Reyna Ortiz NP Urine culture Urine, clean voided 11/28/2024 11:17 AM CDT - 11/28/2024 11:59 PM CDT Hospital Encounter [address] [address] Urinary pain Discharge Disposition: Discharge to home or self care 11/28/2024 11:00 AM CDT Office Visit [facility] at [address] [place] [address] Cheyenne Jessica NP Urinary pain (Primary Dx) 11/18/2024 Orders Only [facility] at [address] [place] [id number] Venkat Cheng MD Primary osteoarthritis of right hip (Primary Dx); Pain of right hip 11/17/2024 Telephone [facility] [address] [place] [phone] Tamara Lock 11/13/2024 11:45 AM CDT Office Visit [facility] at [address] [phone] Venkat Cheng MD Primary osteoarthritis of right hip (Primary Dx) 10/27/2024 2:45 PM CDT Office Visit [facility] at [address] [place] [address] Cheyenne Jessica NP COPD with acute exacerbation (HCC) (Primary Dx) 10/02/2024 3:45 PM CDT Office Visit [facility] at [address] [place] [phone] Rickie Aleman MD Primary hypertension (Primary Dx); Class 2 severe obesity due to excess calories with serious comorbidity and body mass index (BMI) of 38.0 to 38.9 in adult (HCC); Traumatic brain injury with loss of consciousness, sequela; Mixed hyperlipidemia from Last 3 Months Immunizations Immunization Administration Dates Next Due Influenza, Quadrivalent, Spl it, Preservative Free, Intramuscular 03/30/2022 Influenza, Unspecified 08/11/2024(Deferr ed: Patient Refused),04/02/2024(Deferred: Patient ill today),01/28/2024(Deferred: Patient Refused),03/12/2023,02/11/2021(Deferre d: Patient Refused),02/11/2021(Deferred: Patient Refused),02/11/2021(Deferred: Patient Refused) Pneumococcal Conjugate Pcv20 03/30/2022 Pneumococcal Polysaccharide PPV23 02/16/2020 Td, Unspecified 05/17/2020 Surgical History Surgery Date Site/Laterality Comments REPLACEMENT TOTAL HIP LATERAL POSITION 03/23/2021 Le ft PLANTAR'S WART EXCISION Right TONSILLECTOMY Bilateral NASAL POLYP SURGERY REPLACEMENT TOTAL KNEE Bilateral KNEE ARTHROPLASTY Left Knee replacement KNEE ARTHROPLASTY Right Knee replacement FL FLUORO GUIDED INJECTION HIP LEFT 03/24/2020 Left FL FLUORO GUIDED INJECTION HIP LEFT 08/20/2020 Left FL FLUORO GUIDED INJECTION HIP LEFT 12/01/2020 Left ROTATOR CUFF REPAIR Left HAND TENDON SURGERY Right ELBOW SURGERY Right TONSILLECTOMY AND ADENOIDECTOMY FOOT SURGERY Right CATARACT EXTRACTION, BILATERAL Bilateral FLUORO GUIDED INJECTION HIP RIGHT 08/14/2024 Right Medical History Medical History Date Comments Arthritis Diabetes mellitus (HCC) Hypertension Hx Other Medical Osteoarthritis Hx Other Medical Hand 1979 Hx Other Medical Tonsils 1965 Hx Other Medical foot 1968 COPD (chronic obstructive pulmonary disease) (HC C) Bronchiolitis, acute Sleep apnea Acute exacerbation of COPD with asthma (HCC) CVA (cerebral vascular accident) (HCC) Coronary artery disease 09/23/2021 Subclinical hypothyroidism 12/22/2022 Family History Medical History Relation Name Comments Heart attack Father Heart disease Father COPD Mother COPD Sister Relation Name Status Comments Father Mother Sister Social History Tobacco Use Types Packs/Day Years Used Date Smoking Tobacco: Former Cigarettes 1.5 20 0 05/14/1999 - 05/14/2019 Cigars Smokeless Tobacco: Never Tobacco Cessation:Counseling Given: Not Answered Comments:pt quit cigarettes 2 years ago Alcohol Use Standard Drinks/Week Comments Not Currently 0 (1 standard drink = 0.6 oz pur e alcohol) AUDIT-C Answer Date Recorded Q1: How often do you have a drink containing alc ohol? 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 Gender Identity Not on file Sexual Orientation Not on file Obstetrics History Last Filed Vital Signs Vital Sign Reading Time Taken Comments Blood Pressure 132/84 11/28/2024 10:39 AM CDT Pulse 75 11/28/2024 10:39 AM CDT Temperature 36.4 C (97.5 F) 11/28/2024 10:39 AM CDT Respiratory Rate 20 11/28/2024 10:39 AM CDT Oxygen Saturation 97% 11/28/2024 10:39 AM CDT Inhaled Oxygen Concentration - - Weight 124.7 kg (275 lb) 11/28/2024 10:39 AM CDT Height 182.9 cm (6') 11/28/2024 10:39 AM CDT Body Mass Index 37.3 11/28/2024 10:39 AM CDT Plan of Treatment Upcoming Encounters Date Type Department Care Team (Late st Contact Info) Description 12/04/2024 1:30 PM CDT Hospital Encounter [facility] [address] [place] [address] Health Maintenance Due Date Last Done Comments Albumin Creatinine Ratio, Urine 1957 Colon Cancer Screening-Colonoscopy 1957 Hepatitis C Screening 1957 Dilated Eye Exam 1957 Hepatitis B Screening 1975 Zoster Vaccine (1 of 2) 2007 DTaP/Tdap/Td Vaccine (1 - Tdap) 05/18/2020 Abdominal Aortic Aneurysm (A AA) Screen 2022 Foot Exam 09/19/2022 09/19/2021 Lipid Panel 12/23/2023 12/22/2022, 12/12, 12/01/2021, Additional history exists eGFR 12/23/2023 12/22/2022, 12/12, 12/12/2021, Additional history exists Prostate Cancer Screening-PSA 12/31/2023 12/30/2021 Covid-19 Vaccine (2023- 5 season) 2024 05/02/2021, 08/31/2020, 08/06/2020 Lung Cancer Screening 06/07/2024 06/07/2023, 022 Hemoglobin A1C 07/27/2024 01/28/2024, 12/12, 12/30/2021, Additional history exists Influenza Vaccine (#1) 2025 03/12/2023, 2021 Well Visit 65+ 01/27/2025 01/28/2024, 12/12, 09/23/2021 Depression Screening 10/02/2025 10/02/2024, 04/17/2024, 04/02/2024, Additional history exists Fall Risk Assessment 10/02/2025 10/02/2024, 04/17/2024, 04/02/2024, Additional history exists Pneumococcal vaccine 65+ Completed 03/30/2022, 09/2019 Colon Cancer Screening-DNA Stool Discontinued 02/28/20 Colon Cancer Screening-FIT Discontinued 02/28/2024 Medical Devices Implanted Type Area Merchandise Support Associate Device Identifier Shelf Expiration Date Model / Serial / Lot Lens Lens Solis al: Eye Other - See Comments Other - see comments Solis al: Knee Other - See Comments Other - see comments Left: Hip [employer] [id number] [place] 56mm 36mm Hip Neutral Liner Acetabular Altrx Sterile Latex Free - [id number] Implanted:Qty: 1 on 03/23/2021 by Kevon Hogan MD at [facility] Left: Hip [employer] 01/11/2026 [id number] / / [id number] [employer] [id number] [place] 56mm Sector Hip Shell Acetabular Gription Sterile Latex Free - [id number] Implanted:Qty: 1 on 03/23/2021 by Kveon Hogan MD at [facility] Left: Hip [employer] 12/11/2030 [id number] / / [id number] [employer] [id number] Actis L111 Mm Collar Hip 8 High Offset Stem Femoral - [id number] Implanted:Qty: 1 on 03/23/2021 by Kevon Hogan MD at [facility] Left: Hip [employer] 01/11/2031 [id number] / / [id number] [employer] [id number] Articul/Zeus 36mm Cementless Hip +8.5mm 12/14 Taper Head Femoral Latex Free - [id number] Implanted:Qty: 1 on 03/23/2021 by Kevon Hogan MD at [facility] Left: Hip [employer] 12/11/2025 [id number] / / [id number] [employer] [id number] Angio-Seal Evolution 6fr .035in Guidewire Bypass Tube Suture - [id number] Implanted:Qty: 1 on 05/11/2021 by Rusty Lam MD at [facility] [employer] Esteban 01/11/2022 [id number] / / [id number] Procedures Procedure Name Priority Date/Time Associated Diagnosis Comments URINE CULTURE Routine 11/28/2024 11:17 AM CDT Urinary pain POCT URINALYSIS DIPSTICK Routine 11/28/2024 10:49 AM CDT Urinary pain STOOL DNA COLOGUARD Routine 02/28/2024 10:00 AM CDT Colon cancer screening POCT HEMOGLOBIN A1C Routine 01/28/2024 1:32 PM CDT Healthcare maintenance CT LUNG CANCER SCREENING Schedule Routine, Read Routine (OP Routine) 06/07/2023 9:22 AM 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 SERVICE TECHNICIAN History of nicotine dependence EGFR Routine 12/22/2022 6:25 AM CDT Hypertension, unspecified type Mixed hyperlipidemia IFG (impaired fasting glucose) LIPID PANEL Routine 12/22/2022 6:25 AM CDT Hypertension, unspecified type Mixed hyperlipidemia IFG (impaired fasting glucose) PSA SCREEN Routine 12/30/2021 6:30 AM CDT Screening PSA (prostate specific antigen) from Last 3 Months or Most Recently Relevant to Health Maintenance Results * Urine culture Urine, clean voided (11/28/2024 11:17 AM CDT) Report Final Report: No growth Comment:Testing performed by : [facility], [address] [place] [address] Urine, clean voided 11/28/2024 11:17 AM CDT 11/29/2024 12:16 AM CDT Narrative APOLLO BAILEY - 11/30/2024 6:24 AM CDT Testing performed by [facility] ([phone]) Cheyenne Jessica NP LAB MICROBIOLOGY - GENERAL ORD ERABLES Final Result APOLLO [id number] Department [place] [address] * POCT urinalysis dipstick (11/28/2024 10:49 AM CDT) Color, Urine, POC Yellow Clarity, ur, POC Clear Clear Glucose, ur, POC Negative Negative Bilirubin, ur, POC Negative Negative Ketones, ur, POC Negative Negative Specific Crescent, POC 1.015 1.003 - 1.030 Blood, ur, POC Negative Negative pH, ur, POC 5.5 5.0 - 8.0 Protein, ur, POC Negative Negative Urobilinogen, urine, POC 0.2 0.2 - 1.0 mg/dL Nitrite, ur, POC Negative Negative Leukocytes, ur, POC Negative Negative Lot Number [id number] Urine 11/28/2024 10:4 9 AM CDT Cheyenne Jessica NP POINT OF CARE TEST ORDERABLES Final Result * (ABNORMAL) Stool DNA - Cologuard (02/28/2024 10:00 AM CDT) Stool DNA - Cologuard Positive( A) Negative [employer] (CLIA #:[id number]) Comment: POSITIVE TEST RESULT. A positive Cologuard result should be followed with a colonoscopy or visual examination of the colon. The normal value (reference range) for this assay is negative. TEST DESCRIPTION: Composite algorithmic analysis of stool DNA-biomarkers with hemoglobin immunoassay. Quantitative values of individual biomarkers are not reportable and are not associated with individual biomarker result reference ranges. Cologuard is intended for colorectal cancer screening of adults of either sex, 45 years or older, who are at average-risk for colorectal cancer (CRC). Cologuard has been approved for use by the U.S. FDA. The performance of Cologuard was established in a cross sectional study of average-risk adults aged 50-84. Cologuard performance in patients ages 45 to 49 years was estimated by sub-group analysis of near-age groups. Colonoscopies performed for a positive result may find as the most clinically significant lesion: colorectal cancer [4.0%], advanced adenoma (including sessile serrated polyps greater than or equal to 1cm diameter) [20%] or non- advanced adenoma [31%]; or no colorectal neoplasia [45%]. These estimates are derived from a prospective cross-sectional screening study of 10,000 individuals at average risk for colorectal cancer who were screened with both Cologuard and colonoscopy. ([place] Wyatt et al, N Engl J Med 2014;370(14):0272-7212.) Cologuard may produce a false negative or false positive result (no colorectal cancer or precancerous polyp present at colonoscopy follow up). A negative Cologuard test result does not guarantee the absence of CRC or advanced adenoma (pre-cancer). The current Cologuard screening interval is every 3 years. ([place] Cancer Society and U.S. Multi-Society Task Force). Cologuard performance data in a 10,000 patient pivotal study using colonoscopy as the reference method can be accessed at the following location: [email or web address].Standard Treasury/results. Additional description of the Cologuard test process, warnings and precautions can be found at [email or web address]. Stool 02/28/2024 10:0 0 AM CDT 02/29/2024 11:41 AM CDT us Rickie Aleman MD LAB BODY FLUIDS AND STOOLS ORDER EVERT Final Result [employer] (CLIA #:[id number]) [place] [address] * POCT hemoglobin A1c (01/28/2024 1:32 PM CDT) Hemoglobin A1C, POC 5.8 4.0 - 5.6 % Capillary blood 01/28/2024 1 :32 PM CDT us Rickie Aleman MD POINT OF CARE TEST ORDERABLES Fi nal Result * CT Lung Cancer Screening (06/07/2023 9:22 AM ELECTRONIC SERVICE TECHNICIAN) Anatomical Region Laterality Modality Chest N/A Computed Tomogra phy 06/07/2023 1:29 PM ELECTRONIC SERVICE TECHNICIAN Narrative 06/07/2023 1:37 PM ELECTRONIC SERVICE TECHNICIAN EXAM DESCRIPTION: CT LUNG CANCER SCREENING REASON FOR STUDY: Screening CT of the chest in a former smoker with a 30 pack year smoking history. Additional history: None. TECHNIQUE: Low dose CT scan of the chest was performed without intravenous contrast using helical scanning technique. The exam extends from the lung apices through the lung bases. Automatic exposure control was used as a dose optimization technique. NOTE: This study was performed for the specific purposes of lung cancer screening and is not an alternative to diagnostic chest CT. RADIATION DOSE: CT dose index volume (CTDIvol) = 2.1 mGy COMPARISON: 10/21/2021 FINDINGS: SMOKING RELATED LUNG DISEASE: Mild emphysema. LUNG NODULES: No suspicious pulmonary nodule. CORONARY ARTERY CALCIFICATION: Severe OTHER: Atelectasis is seen medially in the right lung. The upper abdomen appears normal. Vascular calcifications are noted. No lymphadenopathy. No suspicious osseous lesion. IMPRESSION: No suspicious pulmonary nodule. Moderate to severe coronary artery calcifications. Recommend coronary atherosclerotic risk assessment/medical therapy. Lung-RADS category 1S: Negative. Finding other than a pulmonary nodule which is potentially clinically significant. Recommendation: Low dose Screening CT of chest in 12 months. THIS IS AN ELECTRONICALLY VERIFIED FINAL REPORT 06/07/2023 1:37 PM - Electronically signed by Art Monge M.D. KN: OLIVER Report ID: [id number] Reading Location: [id number] Procedure Note Art Monge MD - 06/07/2023 EXAM DESCRIPTION: CT LUNG CANCER SCREENING REASON FOR STUDY: Screening CT of the chest in a former smoker with a30 pack year smoking history. Additional history: None. TECHNIQUE: Low dose CT scan of the chest was performed without intravenous contrast using helical scanning technique. The exam extends from the lung apices through the lung bases. Automatic exposure control was used as adose optimization technique. NOTE: This study was performed for the specific purposes of lung cancer screening and is not an alternative to diagnostic chest CT. RADIATION DOSE: CT dose index volume (CTDIvol) = 2.1 mGy COMPARISON: 10/21/2021 FINDINGS: SMOKING RELATED LUNG DISEASE: Mild emphysema. LUNG NODULES: No suspicious pulmonary nodule. CORONARY ARTERY CALCIFICATION: Severe OTHER: Atelectasis is seen medially in the right lung. The upperabdomen appears normal. Vascular calcifications are noted. No lymphadenopathy.No suspicious osseous lesion. IMPRESSION: No suspicious pulmonary nodule. Moderate to severe coronary artery calcifications. Recommend coronary atherosclerotic risk assessment/medical therapy. Lung-RADS category 1S: Negative. Finding other than a pulmonary nodulewhich is potentially clinically significant. Recommendation: Low dose Screening CT of chest in 12 months. THIS IS AN ELECTRONICALLY VERIFIED FINAL REPORT 06/07/2023 1:37 PM - Electronically signed by Art Monge M.D. KN: OLIVER Report ID: [id number] Reading Location: [place] [address] us Julio Gaston MD IMG CT PROCEDURES Final Resu lt * eGFR (12/22/2022 6:25 AM CDT) eGFR 97 mL/min/1. 73 m2 APOLLO MEYER (LONNY) Comment: Interpretive Data Reference Interval Normal >/= 90 mL/min/1.73m2 Mildly decreased* 60 - 89 mL/min/1.73m2 Mildly to moderately decreased 45 - 59 mL/min/1.73m2 Moderately to severely decreased 30 - 44 mL/min/1.73m2 Severely decreased 15 - 29 mL/min/1.73m2 Kidney Failure < 15 mL/min/1.73m2 *Relative to young adult level Estimated glomerular filtration rate is determined by the 2020 CKD-EPI equation recommended by the National Kidney Foundation (A Unifying Approach to GFR Estimation: Recommendations of the NKF-ASK Task Force on Reassessing the Inclusion of Race in Diagnosing Kidney Disease, JASN 202). The CKD-EPI equation should not be used for patients with unstable renal function and has not been validated in children and those over 70. Current interpretive data was last reviewed 2021. Blood 12/22/2022 6:25 AM CDT 12/22/2022 6:54 AM CDT us Julio Gaston MD LAB BLOOD ORDERABLES Final R esult APOLLO MEYER (LONNY) 1 [facility] Department [place] [address] * (ABNORMAL) Lipid panel (12/22/2022 6:25 AM CDT) Cholesterol 145 30 - 199 mg/dL APOLLO MEYER (LONNY) Comment: Interpretive Data Ages < or = 19 years Acceptable: <170 mg/dL Borderline high: 170-199 mg/dL High: >or= 200 mg/dL Ages > or = 20 years Desirable: <200 mg/dL Borderline high: 200-239 mg/dL High: >or= 240 mg/dL Literature References: 1. Expert Panel on Integrated Guidelines for Cardiovascular Health and Risk Reduction in Children and Adolescents. Pediatrics 2011;128:S213 2. NCEP Expert Panel. Circulation 2004;110:227 Current Interpretive Data was last revised on 2018. Triglycerides 416(H) <=149 mg/dL APOLLO MEYER (LONNY) Comment: Interpretive Data Ages < or = 9 years Acceptable: <75 mg/dL Borderline high: 75-99 mg/dL High: >or= 100 mg/dL Ages 10 to 20 years Acceptable: <90 mg/dL Borderline high: 90-129 mg/dL High: >or= 130 mg/dL Ages > or = 20 years Desirable: <150 mg/dL Borderline high: 150-199 mg/dL High: 200-499 mg/dL Very high: >or= 499 mg/dL Literature References: 1. Expert Panel on Integrated Guidelines for Cardiovascular Health and Risk Reduction in Children and Adolescents. Pediatrics 2011;128:S213 2. NCEP Expert Panel. Circulation 2004;110:227 Current Interpretive Data was last revised on 2018. HDL 35(L) >=40 mg/dL APOLLO MEYER (LONNY) Comment: Interpretive Data Ages < or = 19 years Acceptable: >45 mg/dL Borderline low: 40-45 mg/dL Low: <40 mg/dL Ages > or = 20 years Desirable: >or= 60 mg/dL Low: <40 mg/dL Literature References: 1. Expert Panel on Integrated Guidelines for Cardiovascular Health and Risk Reduction in Children and Adolescents. Pediatrics 2011;128:S213 2. NCEP Expert Panel. Circulation 2004;110:227 Current Interpretive Data was last revised on 2018. LDL, calculated See Comment <=129 mg/dL APOLLO MEYER (LONNY) Comment: Unable to calculate due to elevated Triglycerides. Interpretive Data Ages < or = 19 years Acceptable: <110 mg/dL Borderline high: 110-129 mg/dL High: >or= 130 mg/dL Ages > or = 20 years Optimal: <100 mg/dL Near optimal: 100-129 mg/dL Borderline high: 130-159 mg/dL High: >160 mg/dL Literature References: 1. Expert Panel on Integrated Guidelines for Cardiovascular Health and Risk Reduction in Children and Adolescents. Pediatrics 2011;128:S213 2. NCEP Expert Panel. Circulation 2004;110:227 Current Interpretive Data was last revised on 2018. Non-HDL Cholesterol 110 mg/dL APOLLO MEYER (LONNY) Comment: Interpretive Data Ages < or = 19 years Acceptable: <120 mg/dL Borderline high: 120-144 mg/dL High: >145 mg/dL Ages > or = 20 years When triglycerides are >200 mg/dL, Non-HDL cholesterol is a secondary target of therapy with treatment goals that are 30 mg/dL greater than the LDL cholesterol target. Literature References: 1. Expert Panel on Integrated Guidelines for Cardiovascular Health and Risk Reduction in Children and Adolescents. Pediatrics 2011;128:S213 2. NCEP Expert Panel. Circulation 2004;110:227 Current Interpretive Data was last revised on 2018. Chol/HDL ratio 4 MELISSANE Christy MEYER (LONNY) Blood 12/22/2022 6:25 AM CDT 12/22/2022 6:54 AM CDT Narrative APOLLO MEYER ([place]) - 12/22/2022 8:13 AM CDT fasting Julio Gaston MD LAB BLOOD ORDERABLES Final R esult Performing Organization Address City/[facility]/ZIP Co de Phone Number APOLLO MEYER ([place]) [address] [place] [address] * PSA screen (12/30/2021 6:30 AM CDT) PSA-Total 0.98 <=5.40 ng/mL APOLLO MEYER ([place]) Comment: Interpretive Data AGE SEX REFERENCE INTERVAL 0 minutes-150 years Female None 0 minutes-49 years Male None 50-59 years Male 0-3.90 60-69 years Male 0-5.40 70-79 years Male 0-6.20 80-150 years Male 0-6.20 The Kirk PSA Total assay procedure was used. Results from different manufacturers or methods may not be comparable. Serial testing should be performed using the same method. Current interpretive data last revised 21. Testing performed by: [facility], [address] [place] [address], [place]., [address] Blood 12/30/2021 6:30 AM CDT 12/30/2021 9:33 AM CDT Julio Gaston MD LAB BLOOD ORDERABLES Final R esult Performing Organization Address City/[facility]/ZIP Co de Phone Number APOLLO MEYER ([place]) [address] [place] [address] from Last 3 Months or Most Recently Relevant to Health Maintenance Insurance [facility] MEDICARE ADVANTAGE [facility] MEDICARE ADVANTAGE IDPA [facility] MEDICARE ADVANTAGE IDPA Advance Directives For more information, please contact: [phone] * LIMITED - No CPR (Latest Code Status on File) Date Activated Date Inactivated Comments 12/10/2021 4:58 PM 12/15/2021 8:47 PM Question Answer Comments Provide aggressive medical m anagement before a full cardiopulmonary arrest occurs. Use antibiotics, IV Fluids, and medical treatment unless specifically selected below: No intubationNo internal / external pacemakerNo cardioversionNo non-invasive ventilationNo vasopressors Discussed with the following attending physician: daniella * Full Code Date Activated Date Inactivated Comments 12/01/2021 2:55 AM 12/10/2021 4:58 PM * Full Code Date Activated Date Inactivated Comments 05/09/2021 5:40 PM 05/12/2021 11:17 PM * Full Code Date Activated Date Inactivated Comments 03/23/2021 12:27 PM 03/23/2021 7:31 PM * Full Code Date Activated Date Inactivated Comments 09/28/2019 9:29 AM 09/28/2019 2:01 PM Care Teams Leak Operator Paraffin Plant Relationship Specialty Start Date End Date Rickie Aleman MD [address] [facility] [place] [address] PCP - General Family Medicine 01/28/24 Kevon Hogan MD Surgeon Orthopedic Surgery 03/23/21 Rosette Florence DO [address] [facility] [place] [address] Consulting Physician Internal Medicine 12/03/21 Rusty Lam MD [address] [facility] [place] [address] Consulting Physician Cardiology 12/15/21 Maria De Jesus Kaur, PT Physical Therapist Physical Therapy 01/03/22
--- OUTSIDE RECORDS SUMMARY | 2024-12-03 11:49 | XMS_ITS | Encounter Summary ---
Author Organization [facility] Address [address] [place] [address] Phone Care Team Providers Care Compound Machine Operator Name Role Phone Eddie Baker MD Primary Care Provider [phone] Provider, None Primary Care Provider Julio Small MD Primary Care Provider [phone] Rickie Aleman MD Primary Care Provider [phone] Reason for Visit * Reason Comments Medication Refill Encounter Details Date Type Department Care Team (Late st Contact Info) Description 05/12/2021 Refill [facility] - Family Medicine [facility] [address] [place] [address] Eddie Baker MD [address] [address] Medication Refill Social History Tobacco Use Types Packs/Day Years Used Date Smoking Tobacco: Former Cigarettes Q uit: 04/11/2019 Smokeless Tobacco: Former Alcohol Use Standard Drinks/Week Comments No 0 (1 standard drink = 0.6 oz pur e alcohol) Sexually Active Control Partners Comments Yes Female Sex and Gender Information Value Date Recorded Sex Assigned at Not on file Legal Sex Male 3:07 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 No / Unsure 05/06/2021 12:33 PM SENIOR GRANT WRITER documented as of this encounter Miscellaneous Notes * Telephone Encounter - Karyna Tovar RN - 05/16/2021 11:14 AM CST PRN medication requires review from provider Per nursing clinical judgement, provider to review and approve the medication(s) order(s) if appropriate. Requested Prescriptions Pending Prescriptions Disp Refills albuterol (PROVENTIL, VENTOLIN) (2.5 MG/3ML) 0.083% Nebulizer Soln [Pharmacy Med Name: ALBUTEROL SUL 2.5 MG/3 ML SOLN] 300 mL 5 Sig: INHALE 3 ML 3 TIMES A DAY BY NEBULIZATION ROUTE NEEDED FOR 30 DAYS. Short Acting Inhaled Beta-Agonists Protocol Passed - 05/12/2021 10:23 PM Passed - Visit with relevant provider in past 12 months or upcoming 90 days Recent Visits Date Type Provider Dept 03/01/21 Office Visit Eddie Baker MD [facility] 10/25/20 Office Visit Eddie Baker MD [facility] 07/22/20 Office Visit Eddie Baker MD [facility] 05/28/20 Office Visit Harley Segundo MAKEUP ARTISTRY INSTRUCTOR, MAT MACHINE OPERATOR [facility] Showing recent visits within past 365 days and meeting all other requirements Future Appointments Date Type Provider Dept 06/01/21 Appointment Eddie Baker MD [facility] Showing future appointments within next 90 days and meeting all other requirements OR GRANT WRITER documented in this encounter Plan of Treatment Not on file documented as of this encounter Visit Diagnoses Not on filedocumented in this encounter Additional Health Concerns Infection Onset Date Last Indicated Resolved Time COVID - 19 04/04/2022 04/04/2022 04/04/2022 1:54 PM SENIOR GRANT WRITER COVID - 19 04/04/2022 04/04/2022 04/14/2022 12:1 9 AM SENIOR GRANT WRITER COVID - 19 10/22/2024 10/22/2024 10/22/2024 1:38 PM CDT documented as of this encounter Care Teams Compound Machine Operator Relationship Specialty Start Date End Date Eddie Baker MD [address] [facility] [address] [place] [address] PCP - General Family Medicine 04/16/20 08/01/21 Provider, None [place] PCP - General 08/02/21 10/18/21 Julio Gaston MD [place] PCP - General Internal Medicine 10/19/21 03/12/24 Rickie Aleman MD [address] [facility] [address] [place] [address] PCP - General Business Process Lead 03/13/24 documented as of this encounter
--- OUTSIDE RECORDS SUMMARY | 2024-12-03 11:49 | XMS_ITS | Encounter Summary ---
Author Organization [facility] Address [address] [place] [address] Phone Care Team Providers Care Automation Technician Name Role Phone Julio Gaston MD Primary Care Provider [phone] Rickie Aleman MD Primary Care Provider [phone] Reason for Visit * Reason Comments Medication Refill Encounter Details Date Type Department Care Team (Late st Contact Info) Description 12/31/2021 Refill [facility] [address] [place] [address] Eddie Baker MD [address] [address] Medication Refill Social History Tobacco Use Types Packs/Day Years Used Date Smoking Tobacco: Former Cigarettes Q uit: 04/11/2019 Smokeless Tobacco: Former Alcohol Use Standard Drinks/Week Comments No 0 (1 standard drink = 0.6 oz pur e alcohol) Sexually Active Control Partners Comments Yes Female Sex and Gender Information Value Date Recorded Sex Assigned at Not on file Legal Sex Male 3:07 AM BLEACH CHLORINATOR Gender Identity Not on file Sexual Orientation Not on file documented as of this encounter Miscellaneous Notes * Telephone Encounter - Adina Mendes RN - 01/02/2022 8:[address] Julio Gaston. documented in this encounter Plan of Treatment Not on file documented as of this encounter Visit Diagnoses Diagnosis Centrilobular emphysema (HCC) Other emphysema documented in this encounter Additional Health Concerns Infection Onset Date Last Indicated Resolved Time COVID - 19 04/04/2022 04/04/2022 04/04/2022 1:54 PM BLEACH CHLORINATOR COVID - 19 04/04/2022 04/04/2022 04/14/2022 12:1 9 AM BLEACH CHLORINATOR COVID - 19 10/22/2024 10/22/2024 10/22/2024 1:38 PM CDT documented as of this encounter Care Teams Automation Technician Relationship Specialty Start Date End Date Julio Gaston MD PCP - General Internal Medicine 10/19/21 03/12/24 Rickie Aleman MD [address] [facility] [place] [address] PCP - General Equipment Analyst 03/13/24 documented as of this encounter
--- OUTSIDE RECORDS SUMMARY | 2024-12-03 11:49 | XMS_ITS | Clinical Summary ---
Author Organization [facility] Address [address] [place] [address] Phone Care Team Providers Care Synthetic Resin Operator Name Role Phone Rickie Aleman MD Primary Care Provider [phone] Allergies Active Allergy Reactions Criticality Noted Date Comments Codeine Nausea High 05/09/2018 Hydrocodone Nausea High 05/09/2018 Medications OneTouch Verio Strip USE TO TEST BLOOD SUGAR ONCE DAILY 100 Strip 5 12/14/19 21 Active ipratropium-albu terol (DUO-NEB) 0.5-2.5 (3) MG/3ML SolutionIndicati ons:COPD with acute exacerbation (HCC) USE 1 VIAL VIA NEBULIZER FOUR TIMES DAILY 360 mL 1 03/28/20 21 Active Symbicort 160-4.5 MCG/ACT AerosolIndicatio ns:Centrilobular emphysema (HCC) TAKE 2 PUFFS BY MOUTH TWICE A DAY 10.2 g 5 04/25/20 21 Active busPIRone (BUSPAR) 10 MG Tablet TAKE 1 TABLET BY MOUTH TWICE A DAY 60 Tablet 2 10/14/19 22 Active albuterol 108 (90 Base) MCG/ACT Aerosol Solution INHALE 2 PUFFS BY MOUTH EVERY 4 HOURS 18 g 2 10/14/19 22 Active montelukast (SINGULAIR) 10 MG Tablet TAKE 1 TABLET BY MOUTH EVERY DAY IN THE EVENING 90 Tablet 3 12/27/19 22 Active albuterol (PROVENTIL, VENTOLIN) (2.5 MG/3ML) 0.083% Nebulizer Soln INHALE 3 ML 3 TIMES A DAY BY NEBULIZATION ROUTE NEEDED FOR 30 DAYS. 300 mL 5 04/19/20 22 Active atorvastatin (LIPITOR) 80 MG Tablet Take 80 mg by mouth daily. 06/25/19 23 Active furosemide (Lasix) 20 MG Tablet Take 20 mg by mouth 2 times daily. Active hydrOXYzine (VISTARIL) 25 MG Capsule Take 1 Capsule by mouth 3 times daily as needed for Itching. 20 Capsule 08/13/19 23 Active naproxen (NAPROSYN) 500 MG Tablet Take 1 Tablet by mouth 2 times daily as needed for Mild or more severe pain. 20 Tablet 11/11/19 23 Active naproxen (NAPROSYN) 500 MG Tablet Take 1 Tablet by mouth 2 times daily (with meals). 30 Tablet 08/20/19 25 Active Benzonatate 200 MG Capsule Take 1 Capsule by mouth 3 times daily as needed for Cough for up to 14 days. 42 Capsule 10/23/19 25 025 Active Problems Problem Noted Date Diagnosed Date Anxiety 06/01/2021 Mild intermittent asthma without complication Hypoglycemia 10/25/2020 Lung nodule 07/22/2020 Essential (primary) hypertension 06/15/2020 CVA (cerebral vascular accident) 05/04/2020 Obesity (BMI 30-39.9) 04/19/2020 Tachycardia 04/19/2020 Gynecomastia 04/19/2020 Elevated liver enzymes 04/19/2020 Hyperkalemia 04/19/2020 Leukocytosis 04/19/2020 Elevated LFTs 04/19/2020 Chronic bronchitis 04/19/2020 Inhalation of noxious fumes 04/19/2020 Centrilobular emphysema 10/23/2019 Pulmonary HTN 10/23/2019 Type 2 diabetes mellitus wit hout complication, without long-term current use of insulin 10/23/2019 SHONDA (obstructive sleep apnea) 10/23/2019 Subacromial impingement of left shoulder 019 Encounters Date Type Department Care Team Description 10/22/2024 12:14 PM CDT - 10/22/2024 2:05 PM CDT Emergency [facility] Emergency [address] [place] [address] Tito Jett, PAC Acute bronchitis Discharge Disposition: Discharged to home or Selfcare 10/22/2024 Travel from Last 3 Months Immunizations Immunization Administration Dates Next Due Covid-19, Mrna, Lnp-s, PF, 1 00 mcg/0.5 mL Dose (Moderna) 08/31/2020,08/06/2020 Pneumococcal Vaccine Adult - 23 Valent 0 Family History Medical History Relation Name Comments Heart Attack Father Relation Name Status Comments Father Mother Social History Tobacco Use Types Packs/Day Years Used Date Smoking Tobacco: Former Cigarettes Q uit: 04/11/2019 Smokeless Tobacco: Former Tobacco Cessation:Counseling Given: Not Answered Alcohol Use Standard Drinks/Week Comments No 0 (1 standard drink = 0.6 oz pur e alcohol) Sexually Active Control Partners Comments Yes Female Sex and Gender Information Value Date Recorded Sex Assigned at Not on file Legal Sex Male 3:07 AM CLASS B DRIVER Gender Identity Not on file Sexual Orientation Not on file Last Filed Vital Signs Vital Sign Reading Time Taken Comments Blood Pressure 150/109 10/22/2024 1:30 PM CDT Pulse 78 10/22/2024 1:45 PM CDT Temperature 37.1 C (98.7 F) 10/22/2024 12:10 PM CDT Respiratory Rate 20 10/22/2024 12:10 PM CDT Oxygen Saturation 98% 10/22/2024 1:45 PM CDT Inhaled Oxygen Concentration - - Weight 113.4 kg (250 lb) 10/22/2024 12:10 PM CDT Height 182.9 cm (6') 10/22/2024 12:10 PM CDT Body Mass Index 33.91 10/22/2024 12:10 PM CDT Plan of Treatment Health Maintenance Due Date Last Done Comments Diabetes: Foot Exam 1955 Hepatitis C Virus (HCV) Screening 1955 TdaP Immunization 1957 Cologuard 2002 Colonoscopy 2002 Colorectal Cancer Screening 2002 Immunochemical Fecal Occult Blood 2002 Zoster Immunization (1 of 2) 2007 PSA Discussion 2012 Respiratory Syncytial Virus (RSV) Immunization (Adult) (1 - Risk 60-74 years 1-dose series) 2017 Diabetes: Eye Exam 04/29/2021 04/29/2020 AAA Screening Ultrasound 2022 Diabetes: Nephropathy Screening 07/08/2023 07/08/2022, 09/05/2021, 07/05/2021, Additional history exists SARS-COV-2 Immunization ( season) 2024 05/02/2021, 08/31/2020, 08/06/2020 Diabetes: Hemoglobin A1c 07/27/2024 024, 12/30/2021, 09/19/2021, Additional history exists Influenza Immunization (#1) 2025 03/12/2023, 1 05/30/2021 DTaP/Tdap/Td Immunization Discontinued 05/17/2020 Pneumococcal Immunization (50+ years) Completed 03/30/2022, 02/16/2020 Pneumococcal Immunization Combined Discontinued 03/30/2022, 02/16/2020 Hepatitis B Immunization Aged Out No longer eligible based on patient's age to complete this topic Human Papillomavirus (HPV) Immunization Aged Out No longer eligible based on patient's age to complete this topic Meningococcal Immunization (ACWY) Aged Out No longer eligible based on patient's age to complete this topic Rotavirus Immunization Aged Out No lo nger eligible based on patient's age to complete this topic Procedures Procedure Name Priority Date/Time Associated Diagnosis Comments XR CHEST 2 VIEWS STAT 10/22/2024 12:5 0 PM CDT RSV,SARS-COV-2,INFLU SAMEER A&B BY PCR STAT 10/22/2024 12:22 PM CDT CMP (COMPREHENSIVE METABOLIC PANEL) STAT 07/08/2022 3:32 PM CLASS B DRIVER HEMOGLOBIN A1C W/ ESTIMATED GLUCOSE Routine 10/22/2020 7:43 AM CDT Type 2 diabetes mellitus without complication, without long-term current use of insulin (HCC) HM DILATED EYE EXAM Routine 04/29/2020 from Last 3 Months or Most Recently Relevant to Health Maintenance Results * XR CHEST 2 VIEWS (10/22/2024 12:50 PM CDT) Anatomical Region Laterality Modality Chest N/A Digital Radiogra phy 10/22/2024 1:08 PM CDT Impressions 10/22/2024 1:10 PM CDT IMPRESSION: Mild peribronchial inflammatory changes suspect. Narrative 10/22/2024 1:10 PM CDT EXAM DESCRIPTION: XR CHEST 2 VIEWS REASON FOR STUDY: productive cough and SOB for 2 days. Hx. COPD, smoker TECHNIQUE: Two views COMPARISON: 07/08/2022 FINDINGS: Central vascularity have normal caliber. Aortic arch well-defined on the left. Subtle Chery hilar interstitial densities could indicate peribronchial inflammatory changes. No dense consolidation, effusion or pneumothorax. THIS IS AN ELECTRONICALLY VERIFIED FINAL REPORT 10/22/2024 1:08 PM - Electronically signed by Iván Bar M.D. RB: MARISA Report ID: [id number] Reading Location: [id number] Procedure Note Iván Bar MD - 10/22/2024 EXAM DESCRIPTION: XR CHEST 2 VIEWS REASON FOR STUDY: productive cough and SOB for 2 days. Hx. COPD, smoker TECHNIQUE: Two views COMPARISON: 07/08/2022 FINDINGS: Central vascularity have normal caliber. Aortic arch well-defined on the left. Subtle Chery hilar interstitial densities could indicate peribronchial inflammatory changes. No dense consolidation, effusion or pneumothorax. THIS IS AN ELECTRONICALLY VERIFIED FINAL REPORT 10/22/2024 1:08 PM - Electronically signed by Iván Bar M.D. RB: RB Report ID: [id number] Reading Location: [id number] IMPRESSION: Mild peribronchial inflammatory changes suspect. Tito Jett [facility] IMG DIAGNOSTIC ORDER EVERT Final Result * RSV,SARS-COV-2,INFLUENZA A&B BY PCR (10/22/2024 12:22 PM CDT) FLU A Negative Negative, Error 10/22/2024 1:38 PM CDT [facility] FLU B Negative Negative 10/22/2024 1:38 PM CDT [facility] RESP SYNC VIRUS Negative Negative 1:38 PM CDT [facility] SARSCOV2 NOT DETECTED (Reference Range for this test is Not Detected) 10/22/2024 1:38 PM CDT [facility] Comment:This test was perfor med by a [place] Auditor PCR Method. Swab NASOPHARYNGEAL WASHINGS / Unknown Non-Phlebotomy Collection / Unknown 10/22/2024 12:22 PM CDT 10/22/2024 12:43 PM CDT us Gonzales Calabrese MD MICROBIOLOGY - GENERAL ORDERABLE S Final Result [facility] [address] [place] [address] * (ABNORMAL) Comprehensive Metabolic Panel (Cmp) [id number] (07/08/2022 3:32 PM CLASS B DRIVER) SODIUM 137 136 - 144 mmol/L 07/08/2022 3:59 PM CLASS B DRIVER [facility] POTASSIUM 3.4(L) 3.5 - 5.1 mmol/L 07/08/2022 3:59 PM CLASS B DRIVER [facility] CHLORIDE 93(L) 100 - 110 mmol/L 07/08/2022 3:59 PM CLASS B DRIVER [facility] CO2, VENOUS 31 22 - 32 mmol/L 07/08/2022 3:59 PM CLASS B DRIVER [facility] ANION GAP 16.4 8.0 - 20.0 mmol/L 07/08/2022 3:59 PM CLASS B DRIVER [facility] GLUCOSE 120(H) 70 - 99 mg/dL 07/08/2022 3:59 PM CLASS B DRIVER [facility] BUN 23 8 - 23 mg/dL 07/08/2022 3:59 PM CLASS B DRIVER [facility] CREATININE, BLOOD 1.02 0.80 - 1.30 mg/dL 07/08/2022 3:59 PM [facility] BUN/CREATININE RATIO 23(H) 12 - 20 ratio 07/08/2022 3:59 PM [facility] TOTAL PROTEIN 8.6(H) 6.0 - 8.3 g/dL 07/08/2022 3:59 PM [facility] ALBUMIN 4.9 3.5 - 5.2 g/dL 07/08/2022 3:59 PM [facility] Comment: The colormetric methods used for the determination of Albumin may lead to falsely elevated test results in patients suffering from renal failure or insufficiency due to interference with other proteins. A/G RATIO 1.3 1.0 - 2.0 07/08/2022 3:59 PM [facility] CALCIUM 9.7 8.9 - 10.3 mg/dL 07/08/2022 3:59 PM [facility] T BILI 0.6 <=1.2 mg/dL 07/08/2022 3:59 PM [facility] SGOT (AST) 21 <=40 U/L 07/08/2022 3:59 PM [facility] SGPT (ALT) 30 <=41 U/L 07/08/2022 3:59 PM [facility] ALKALINE PHOSPHATASE 62 40 - 130 U/L 07/08/2022 3:59 PM [facility] GFR, ESTIMATED >60 >=60 07/08/2022 3:59 PM [facility] Comment: Creatinine Clearance is the preferred criteria for selecting drug dose adjustments in renally impaired patients. The GFR is provided as additional pertinent clinical information. GFR is reported in mL/min/1.73 sq m. Calculation based on the Chronic Kidney Disease Epidemiology Collaboration (CKD- EPI) equation refit without adjustment for race. GFR, EST. >60 >=60 023 3:59 PM [facility] GFR, EST. NONAFRICAN >60 >=60 07/08/2022 3:59 PM [facility] Blood Venipuncture / Unknown 07/08/2022 3:32 PM CLASS B DRIVER 07/08/2022 3:38 PM CLASS B DRIVER Seb Domingo MD CHEMISTRY ORDERABLES Final Resu lt [facility] [address] [place] [address] * HEMOGLOBIN A1C W/ ESTIMATED GLUCOSE (10/22/2020 7:43 AM CDT) HGB-A1C 5.4 4.0 - 6.0 % 10/22/2020 12:33 PM CDT [facility] Est Average Glucose 108.3 mg/dL 10/22/2020 12:33 PM CDT [facility] Blood Venipuncture / Unknown 10/22/2020 7:43 AM CDT 10/22/2020 7:43 AM CDT Narrative [facility] - 10/22/2020 12:33 PM CDT HEMOGLOBIN A1C: DIABETIC PATIENTS: WELL-CONTROLLED: 6.2 - 7.0 INTERMEDIATE WELL-CONTROLLED: 7.0 - 9.0 POORLY-CONTROLLED: >9.0 Eddie Baker MD CHEMISTRY ORDERABLES Ines l Result Performing Organization Address City/[facility]/ZIP Co de Phone Number [facility] [address] [place] [address] * DILATED EYE EXAM (04/29/2020) us Shad Wigton PROCEDURE/MINOR SURGICAL ORDERAB LES Final Result from Last 3 Months or Most Recently Relevant to Health Maintenance Insurance [facility] [place] MEDICARE C [employer] [place] Care Teams Synthetic Resin Operator Relationship Specialty Start Date End Date Rickie Aleman MD [address] [facility] [address] [place] [id number] PCP - General Bone Tender 03/13/24
--- OUTSIDE RECORDS SUMMARY | 2024-12-03 11:49 | XMS_ITS | Encounter Summary ---
Author Organization [facility] Address [address] [place] [address] Phone Care Team Providers Care Piece Dyer Name Role Phone Eddie Baker MD Primary Care Provider [phone] Provider, None Primary Care Provider Julio Small MD Primary Care Provider [phone] Rickie Aleman MD Primary Care Provider [phone] Reason for Visit * Reason Comments Medication Refill Encounter Details Date Type Department Care Team (Late st Contact Info) Description 12/11/2020 Refill [facility] - Family Medicine [facility] [address] [place] [address] Eddie Baker MD [address] [address] Medication Refill Social History Tobacco Use Types Packs/Day Years Used Date Smoking Tobacco: Former Cigarettes Q uit: 04/11/2019 Smokeless Tobacco: Former Alcohol Use Standard Drinks/Week Comments No 0 (1 standard drink = 0.6 oz pur e alcohol) Sexually Active Control Partners Comments Yes Female Sex and Gender Information Value Date Recorded Sex Assigned at Not on file Legal Sex Male 3:07 AM ACTIVE DIRECTORY ENGINEER Gender Identity Not on file Sexual Orientation Not on file documented as of this encounter Miscellaneous Notes * Telephone Encounter - Karyna Tovar RN - 12/13/2020 11:37 AM CDT Per nursing clinical judgement, provider to review and approve the medication(s) order(s) if appropriate. Requested Prescriptions Pending Prescriptions Disp Refills OneTouch Verio Strip [Pharmacy Med Name: ONE TOUCH VERIO TEST STRIP] 100 Strip 5 Sig: USE TO TEST BLOOD SUGAR ONCE DAILY Diabetic Supplies Protocol Failed - 12/11/2020 7:43 PM Failed - Active on medication list Passed - Visit with relevant provider in past 6 months Recent Visits Date Type Provider Dept 10/25/20 Office Visit Eddie Baker MD [facility] 07/22/20 Office Visit Eddie Baker MD [facility] Showing recent visits within past 182 days and meeting all other requirements Future Appointments Date Type Provider Dept 01/27/21 Appointment Eddie Baker MD [facility] Showing future appointments within next 90 days and meeting all other requirements documented in this encounter Plan of Treatment Not on file documented as of this encounter Visit Diagnoses Not on filedocumented in this encounter Additional Health Concerns Infection Onset Date Last Indicated Resolved Time COVID - 19 04/08/2021 04/08/2021 04/28/2021 12:1 6 AM ACTIVE DIRECTORY ENGINEER COVID - 19 04/04/2022 04/04/2022 04/04/2022 1:54 PM ACTIVE DIRECTORY ENGINEER COVID - 19 04/04/2022 04/04/2022 04/14/2022 12:1 9 AM ACTIVE DIRECTORY ENGINEER COVID - 19 10/22/2024 10/22/2024 10/22/2024 1:38 PM CDT documented as of this encounter Care Teams Piece Dyer Relationship Specialty Start Date End Date Eddie Baker MD #[address] [address] PCP - General Family Medicine 04/16/20 08/01/21 Provider, None [place] PCP - General 08/02/21 10/18/21 Julio Gaston MD [place] PCP - General Internal Medicine 10/19/21 03/12/24 Rickie Aleman MD [address] [place] [address] [place] [address] PCP - General Varnish Maker 03/13/24 documented as of this encounter
--- OUTSIDE RECORDS SUMMARY | 2024-12-03 11:49 | XMS_ITS | Encounter Summary ---
Author Organization [facility] Address [address] [place] [address] Phone Care Team Providers Care Card Mounter Name Role Phone Julio Gaston MD Primary Care Provider [phone] Rickie Aleman MD Primary Care Provider [phone] Reason for Visit * Reason Comments Medication Refill Encounter Details Date Type Department Care Team (Late st Contact Info) Description 11/26/2021 Refill [facility] [address] [place] [address] Eddie Baker MD [address] [address] Medication Refill Social History Tobacco Use Types Packs/Day Years Used Date Smoking Tobacco: Former Cigarettes Q uit: 04/11/2019 Smokeless Tobacco: Former Alcohol Use Standard Drinks/Week Comments No 0 (1 standard drink = 0.6 oz pur e alcohol) Sexually Active Control Partners Comments Yes Female Sex and Gender Information Value Date Recorded Sex Assigned at Not on file Legal Sex Male 3:07 AM SALES AGENT CASUALTY INSURANCE Gender Identity Not on file Sexual Orientation Not on file COVID-19 Exposure Response Date Recorded In the last 10 days, have yo u been in contact with someone who was confirmed or suspected to have Coronavirus/COVID-19? No / Unsure 11/18/2021 2:06 PM CDT documented as of this encounter Miscellaneous Notes * Telephone Encounter - Karyna Tovar RN - 11/28/2021 11:04 AM CDT PCP Julio Gaston MD documented in this encounter Plan of Treatment Not on file documented as of this encounter Visit Diagnoses Diagnosis Centrilobular emphysema (HCC) Other emphysema documented in this encounter Additional Health Concerns Infection Onset Date Last Indicated Resolved Time COVID - 19 04/04/2022 04/04/2022 04/04/2022 1:54 PM SALES AGENT CASUALTY INSURANCE COVID - 19 04/04/2022 04/04/2022 04/14/2022 12:1 9 AM SALES AGENT CASUALTY INSURANCE COVID - 19 10/22/2024 10/22/2024 10/22/2024 1:38 PM CDT documented as of this encounter Care Teams Card Mounter Relationship Specialty Start Date End Date Julio Gaston MD PCP - General Internal Medicine 10/19/21 03/12/24 Rickie Aleman MD [address] [place] [address] [address] PCP - General Metal Sash Setter 03/13/24 documented as of this encounter
--- OUTSIDE RECORDS SUMMARY | 2024-12-03 11:49 | XMS_ITS | Encounter Summary ---
Author Organization [facility] Address [address] [place] [address] Phone Care Team Providers Care Underwriter Name Role Phone Eddie Baker MD Primary Care Provider [phone] Provider, None Primary Care Provider Julio Small MD Primary Care Provider [phone] Rickie Aleman MD Primary Care Provider [phone] Reason for Visit * Reason Comments Medication Refill Encounter Details Date Type Department Care Team (Late st Contact Info) Description 09/16/2020 Refill [facility] - Family Medicine [facility] [address]2 [place] [address] Eddie Baker MD #[address] [address] Medication Refill Social History Tobacco Use Types Packs/Day Years Used Date Smoking Tobacco: Former Cigarettes Q uit: 04/11/2019 Smokeless Tobacco: Former Alcohol Use Standard Drinks/Week Comments No 0 (1 standard drink = 0.6 oz pur e alcohol) Sexually Active Control Partners Comments Yes Female Sex and Gender Information Value Date Recorded Sex Assigned at Not on file Legal Sex 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 Requested Prescriptions Pending Prescriptions Disp Refills albuterol (PROVENTIL, VENTOLIN) (2.5 MG/3ML) 0.083% Nebulizer Soln [Pharmacy Med Name: ALBUTEROL SUL 2.5 MG/3 ML SOLN] 300 mL 5 Sig: INHALE 3 ML 3 TIMES A DAY BY NEBULIZATION ROUTE NEEDED FOR 30 DAYS. [facility] Pulmonology: Beta Agonists - Albuterol & Levalbuterol Failed - 09/17/2020 10:28 AM Failed - May refill 2 inhalers, 0 refills one time since last office visit. May refill #50 nebulizer vials, 0 refills for albuterol or #48 vials, 0 refills for Xopenex one time since last office visit. Passed - Valid encounter within last 6 months Past Office Visits Recent Outpatient Visits 1 month ago URI, acute [facility] Family [facility] - Eddie Santana MD 3 months ago Centrilobular emphysema (HCC) [facility] - Harley Kinney APN, AYUSH 4 months ago COPD with acute exacerbation (HCC) [facility] - Harley Kinney APN, AYUSH 5 months ago Chronic bronchitis, unspecified chronic bronchitis type (HCC) [facility] - Eddie Santana MD Upcoming Appointments Future Appointments Today Martha Kim APN, AYUSH [facility] - Pulmonology & Sleep Medicine -[facility] In 1 month Eddie Baker MD [facility] Family Medicine - [place] MEDICAL CHIEF TECHNICIAN - Recent and Past Visits Recent Visits Date Type Provider Dept 07/22/20 Office Visit Eddie Baker MD [facility] 05/28/20 Office Visit Harley Segundo APN, CNP [facility] 05/04/20 Telemedicine Harley Segundo APN, CNP [facility] 04/19/20 Office Visit Eddie Baker MD [facility] Showing recent visits within past 460 days with a meds authorizing provider and meeting all other requirements Future Appointments Date Type Provider Dept 10/25/20 Appointment Eddie Baker MD [facility] Showing future appointments within next 90 days with a meds authorizing provider and meeting all other requirements Passed - Last BP in normal range BP Readings from Last 1 Encounters: 07/22/20 132/74 albuterol 108 (90 Base) MCG/ACT Aerosol Solution [Pharmacy Med Name: ALBUTEROL HFA (PROAIR) INHALER] 8.5 Inhaler 5 Sig: INHALE 2 PUFFS BY MOUTH EVERY 4 HOURS [facility] Pulmonology: Beta Agonists - Albuterol & Levalbuterol Failed - 09/17/2020 10:28 AM Failed - May refill 2 inhalers, 0 refills one time since last office visit. May refill #50 nebulizer vials, 0 refills for albuterol or #48 vials, 0 refills for Xopenex one time since last office visit. Passed - Valid encounter within last 6 months Past Office Visits Recent Outpatient Visits 1 month ago URI, acute [facility] Family [facility] - Eddie Santana MD 3 months ago Centrilobular emphysema (HCC) [facility] - Harley Kinney APN, AYUSH 4 months ago COPD with acute exacerbation (HCC) [facility] - Harley Kinney APN, CNP 5 months ago Chronic bronchitis, unspecified chronic bronchitis type (HCC) [facility] - Eddie Santana MD Upcoming Appointments Future Appointments Today Martha Kim APN, AYUSH [facility] - Pulmonology & Sleep Medicine -[place] [place] In 1 month Eddie Baker MD [facility] - [place] MEDICAL CHIEF TECHNICIAN - Recent and Past Visits Recent Visits Date Type Provider Dept 07/22/20 Office Visit Eddie Baker MD [facility] 05/28/20 Office Visit Harley Segundo APN, AYUSH [facility] 05/04/20 Telemedicine Harley Segundo APN, AYUSH [facility] 04/19/20 Office Visit Eddie Baker MD [facility] Showing recent visits within past 460 days with a meds authorizing provider and meeting all other requirements Future Appointments Date Type Provider Dept 10/25/20 Appointment Eddie Baker MD [facility] Showing future appointments within next 90 days with a meds authorizing provider and meeting all other requirements Passed - Last BP in normal range BP Readings from Last 1 Encounters: 07/22/20 132/74 documented in this encounter Plan of Treatment Not on file documented as of this encounter Visit Diagnoses Not on filedocumented in this encounter Additional Health Concerns Infection Onset Date Last Indicated Resolved Time COVID - 19 04/08/2021 04/08/2021 04/28/2021 12:1 6 AM TEMPERING MACHINE OPERATOR COVID - 19 04/04/2022 04/04/2022 04/04/2022 1:54 PM TEMPERING MACHINE OPERATOR COVID - 19 04/04/2022 04/04/2022 04/14/2022 12:1 9 AM TEMPERING MACHINE OPERATOR COVID - 19 10/22/2024 10/22/2024 10/22/2024 1:38 PM CDT documented as of this encounter Care Teams Underwriter Relationship Specialty Start Date End Date Eddie Baker MD #[address] [address] PCP - General Family Medicine 04/16/20 08/01/21 Provider, None [place] PCP - General 08/02/21 10/18/21 Julio Gaston MD [place] PCP - General Internal Medicine 10/19/21 03/12/24 Rickie Aleman MD [address] [place] [address] [address] [place] [place] [address] PCP - General Sales Strategy Manager 03/13/24 documented as of this encounter
--- OUTSIDE RECORDS SUMMARY | 2024-12-03 11:49 | XMS_ITS | Encounter Summary ---
Author Organization [facility] Address [address] [place] [address] Phone Care Team Providers Care Dog Pound Attendant Name Role Phone Julio Gaston MD Primary Care Provider [phone] Rickie Aleman MD Primary Care Provider [phone] Reason for Visit * Reason Comments Medication Refill Encounter Details Date Type Department Care Team (Late st Contact Info) Description 11/06/2021 Refill [facility] #2 [place] [address] Eddie Baker MD #[address] [address] Medication Refill Social History Tobacco Use Types Packs/Day Years Used Date Smoking Tobacco: Former Cigarettes Q uit: 04/11/2019 Smokeless Tobacco: Former Alcohol Use Standard Drinks/Week Comments No 0 (1 standard drink = 0.6 oz pur e alcohol) Sexually Active Control Partners Comments Yes Female Sex and Gender Information Value Date Recorded Sex Assigned at Not on file Legal Sex Male 3:07 AM SKIVER BOX TOE Gender Identity Not on file Sexual Orientation Not on file COVID-19 Exposure Response Date Recorded In the last 10 days, have yo u been in contact with someone who was confirmed or suspected to have Coronavirus/COVID-19? No / Unsure 10/19/2021 5:49 AM CDT documented as of this encounter Miscellaneous Notes * Telephone Encounter - Karyna Tovar RN - 11/07/2021 12:59 PM CDT PCP Julio Gaston documented in this encounter Plan of Treatment Not on file documented as of this encounter Visit Diagnoses Diagnosis Centrilobular emphysema (HCC) Other emphysema documented in this encounter Additional Health Concerns Infection Onset Date Last Indicated Resolved Time COVID - 19 04/04/2022 04/04/2022 04/04/2022 1:54 PM SKIVER BOX TOE COVID - 19 04/04/2022 04/04/2022 04/14/2022 12:1 9 AM SKIVER BOX TOE COVID - 19 10/22/2024 10/22/2024 10/22/2024 1:38 PM CDT documented as of this encounter Care Teams Dog Pound Attendant Relationship Specialty Start Date End Date Julio Gaston MD PCP - General Internal Medicine 10/19/21 03/12/24 Rickie Aleman MD [address] [place] [address] [address] [place] [address] PCP - General Nurse Obgyn 03/13/24 documented as of this encounter
--- OUTSIDE RECORDS SUMMARY | 2024-12-03 11:49 | XMS_ITS | Encounter Summary ---
Author Organization [facility] Address [address] [place] [address] Phone Care Team Providers Care Mammography Supervisor Name Role Phone Eddie Baker MD Primary Care Provider [phone] Provider, None Primary Care Provider Julio Small MD Primary Care Provider [phone] Rickie Aleman MD Primary Care Provider [phone] Reason for Visit * Reason Comments Medication Refill Encounter Details Date Type Department Care Team (Late st Contact Info) Description 01/30/2021 Refill [facility] - Family Medicine [facility] #2 [place] [address] Eddie Baker MD #[address] [address] Medication Refill Social History Tobacco Use Types Packs/Day Years Used Date Smoking Tobacco: Former Cigarettes Q uit: 04/11/2019 Smokeless Tobacco: Former Alcohol Use Standard Drinks/Week Comments No 0 (1 standard drink = 0.6 oz pur e alcohol) Sexually Active Control Partners Comments Yes Female Sex and Gender Information Value Date Recorded Sex Assigned at Not on file Legal Sex Male 3:07 AM INSPECTOR 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 Requested Prescriptions Pending Prescriptions Disp Refills predniSONE (DELTASONE) 20 MG Tablet [Pharmacy Med Name: PREDNISONE 20 MG TABLET] 20 Tablet 0 Sig: TAKE 1 TABLET BY MOUTH TWICE A DAY [facility] Not Delegated - Endocrinology: Corticosteroids Failed - 01/30/2021 10:03 AM Failed - This refill cannot be delegated Passed - Valid encounter within last 6 months Past Office Visits Recent Outpatient Visits 3 months ago Type 2 diabetes mellitus without complication, without long-term current use of insulin (HCC) [facility] - Eddie Santana MD 6 months ago URI, acute [facility] Eddie Santana MD 8 months ago Centrilobular emphysema (HCC) [facility] - Harley Kinney APN, AYUSH 9 months ago COPD with acute exacerbation (HCC) [facility] - Harley Kinney APN, AYSUH 9 months ago Chronic bronchitis, unspecified chronic bronchitis type (HCC) [facility] Eddie Santana MD Upcoming Appointments Future Appointments In 4 weeks Eddie Baker MD [facility] INDUSTRIAL PRODUCTION MANAGER - Recent and Past Visits Recent Visits [...] Provider Dept 03/01/21 Appointment [facility] Show[facility] future appointments within [...] 19 04/08/2021 04/08/2021 04/28/2021 12:1 6 AM INSPECTOR SALVAGE COVID - 19 04/04/2022 04/04/2022 04/04/2022 1:54 PM INSPECTOR SALVAGE COVID - 19 04/04/2022 04/04/2022 04/14/2022 12:1 9 AM INSPECTOR SALVAGE COVID - 19 10/22/2024 10/22/2024 10/22/2024 1:38 PM CDT documented as of this encounter Care Teams Mammography Supervisor Relationship Specialty Start Date End Date Eddie Baker MD #2 [facility] [address] PCP - General Family Medicine 04/16/20 08/01/21 Provider, None [place] PCP - General 08/02/21 10/18/21 Julio Gaston MD [place] PCP - General Internal Medicine 10/19/21 03/12/24 Rickie Aleman MD [address] [facility] [address] [facility] [place] [address] PCP - General Prosthetic Technician 03/13/24 documented as of this encounter
--- OUTSIDE RECORDS SUMMARY | 2024-12-03 11:49 | XMS_ITS | Encounter Summary ---
Author Organization [facility] Address [address] [place] [address] Phone Care Team Providers Care Senior Business Architect Name Role Phone Eddie Baker MD Primary Care Provider [phone] Provider, None Primary Care Provider Julio Small MD Primary Care Provider [phone] Rickie Aleman MD Primary Care Provider [phone] Reason for Visit * Reason Comments Medication Refill Encounter Details Date Type Department Care Team (Late st Contact Info) Description 02/18/2021 Refill [facility] - Family Medicine [facility] #2 [place] [address] Eddie Baker MD #[address] [address] Medication Refill Social History Tobacco Use Types Packs/Day Years Used Date Smoking Tobacco: Former Cigarettes Q uit: 04/11/2019 Smokeless Tobacco: Former Alcohol Use Standard Drinks/Week Comments No 0 (1 standard drink = 0.6 oz pur e alcohol) Sexually Active Control Partners Comments Yes Female Sex and Gender Information Value Date Recorded Sex Assigned at Not on file Legal Sex Male 3:07 AM MANAGER MARKET DEVELOPMENT Gender Identity Not on file Sexual Orientation Not on file COVID-19 Exposure Response Date Recorded In the last month, have you been in contact with someone who was confirmed or suspected to have Coronavirus / COVID-19? No / Unsure 02/06/2021 10:48 PM CDT documented as of this encounter Miscellaneous Notes * Telephone Encounter - Karyna Tovar RN - 02/18/2021 12:05 PM CDT Medication warning Per nursing clinical judgement, provider to review and approve the medication(s) order(s) if appropriate. Requested Prescriptions Pending Prescriptions Disp Refills albuterol 108 (90 Base) MCG/ACT Aerosol Solution [Pharmacy Med Name: ALBUTEROL HFA (PROAIR) INHALER] 18 g 5 Sig: INHALE 2 PUFFS BY MOUTH EVERY 4 HOURS Short Acting Inhaled Beta-Agonists Protocol Passed - 02/18/2021 12:01 AM Passed - Visit with relevant provider in past 12 months or upcoming 90 days Recent Visits Date Type Provider Dept 10/25/20 Office Visit Eddie Baker MD [facility] 07/22/20 Office Visit Eddie Baker MD [facility] 05/28/20 Office Visit Harley Segundo APN, AYUSH [facility] 05/04/20 Telemedicine Harley Segundo APN, PRESS OPERATOR HEAVY DUTY [facility] 04/19/20 Office Visit Eddie Baker MD [facility] [...] 19 04/08/2021 04/08/2021 04/28/2021 12:1 6 AM MANAGER MARKET DEVELOPMENT COVID - 19 04/04/2022 04/04/2022 04/04/2022 1:54 PM MANAGER MARKET DEVELOPMENT COVID - 04/04/2022 04/04/2022 04/14/2022 12:1 9 AM MANAGER MARKET DEVELOPMENT COVID - 19 10/22/2024 10/22/2024 10/22/2024 1:38 PM CDT documented as of this encounter Care Teams Senior Business Architect Relationship Specialty Start Date End Date Eddie Baker MD #2 [facility] [address] [place] [address] PCP - General Family Medicine 04/16/20 08/01/21 Provider, None [place] PCP - General 08/02/21 10/18/21 Julio Gaston MD [place] PCP - General Internal Medicine 10/19/21 03/12/24 Rickie Aleman MD 2 [facility] [address] [place] [address] PCP - General Assistant Controller 03/13/24 documented as of this encounter
--- OUTSIDE RECORDS SUMMARY | 2024-12-03 11:49 | XMS_ITS | Encounter Summary ---
Author Organization [facility] Address [address] [place] [place] [address] Phone Care Team Providers Care Auction Block Clerk Name Role Phone Julio Gaston MD Primary Care Provider [phone] Rickie Aleman MD Primary Care Provider [phone] Reason for Referral * PT/OT/ST (Routine) - Open Specialty Diagnoses / Procedures Referred By Contac t Referred To Contact Physical Therapy Diagnoses Lumbar radicular pain Mirna Mendes APRN, [facility] [address] [place] [address] Phone: tel: fax: [facility] [address] [facility] [place] [address] Phone: tel: fax: Referral ID Status Reason Start Date Expiration Date Visits Re quested Visits Authorized [id number] Open 01/24/2024 50 50 Scheduling Instructions Encounter Details Date Type Department Care Team (Late st Contact Info) Description 01/24/2024 Transcribe Orders [facility] [address] [place] [address] Mendes, Mirna, PHYSICIAN OFFICE NURSE, [facility] [address] [place] [address] Lumbar radicular pain (Primary Dx) Social History Tobacco Use Types Packs/Day Years Used Date Smoking Tobacco: Former Cigarettes Q uit: 04/11/2019 Smokeless Tobacco: Former Alcohol Use Standard Drinks/Week Comments No 0 (1 standard drink = 0.6 oz pur e alcohol) Sexually Active Control Partners Comments Yes Female Sex and Gender Information Value Date Recorded Sex Assigned at Not on file Legal 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 Male 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 GRADER Gender Identity Not on file Sexual Orientation Not on file documented as of this encounter Plan of Treatment Scheduled Referrals Name Type Priority Associated Diagnoses Orde r Schedule PHYSICAL THERAPY REFERRAL Outpatient Referral Routine Lumbar radicular pain Expected: 01/24/2024, Expires: 01/23/2025 documented as of this encounter Visit Diagnoses Diagnosis Lumbar radicular pain- Primary Thoracic or lumbosacral neuritis or radiculitis, unspecified documented in this encounter Additional Health Concerns Infection Onset Date Last Indicated Resolved Time COVID - 19 10/22/2024 10/22/2024 10/22/2024 1:38 PM CDT documented as of this encounter Care Teams Auction Block Clerk Relationship Specialty Start Date End Date Julio Gaston MD PCP - General Internal Medicine 10/19/21 03/12/24 Rickie Aleman MD [address] [facility] [address] PCP - General Signal Maintainer 03/13/24 documented as of this encounter
--- OUTSIDE RECORDS SUMMARY | 2024-12-03 11:49 | XMS_ITS | Encounter Summary ---
Author Organization [facility] Address [address] [place] [address] Phone Care Team Providers Care Emergency Vehicle Operations Instructor Name Role Phone Eddie Baker MD Primary Care Provider [phone] Provider, None Primary Care Provider Julio Small MD Primary Care Provider [phone] Rickie Aleman MD Primary Care Provider [phone] Reason for Visit * Reason Comments Medication Refill Encounter Details Date Type Department Care Team (Late st Contact Info) Description 03/27/2021 Refill [facility] Medical Group - Family Medicine [facility] #2 [place] [address] Harley Segundo, POLICE COMMANDING OFFICER, PRENATAL TEACHER #[address] [address] Medication Refill Social History Tobacco Use Types Packs/Day Years Used Date Smoking Tobacco: Former Cigarettes Q uit: 04/11/2019 Smokeless Tobacco: Former Alcohol Use Standard Drinks/Week Comments No 0 (1 standard drink = 0.6 oz pur e alcohol) Sexually Active Control Partners Comments Yes Female Sex and Gender Information Value Date Recorded Sex Assigned at Not on file Legal Sex Male 3:07 AM DIRECTOR OF GLOBAL TALENT Gender Identity Not on file Sexual Orientation Not on file COVID-19 Exposure Response Date Recorded In the last month, have you been in contact with someone who was confirmed or suspected to have Coronavirus / COVID-19? No / Unsure 03/01/2021 3:48 PM CDT documented as of this encounter Miscellaneous Notes * Telephone Encounter - Ivette Flores RN - 03/28/2021 9:32 AM CST Per nursing clinical judgement, provider to review and approve the medication(s) order(s) if appropriate. Requested Prescriptions Pending Prescriptions Disp Refills ipratropium-albuterol (DUO-NEB) 0.5-2.5 (3) MG/3ML Solution [Pharmacy Med Name: IPRAT-ALBUT 0.5-3(2.5) MG/3 ML] 360 mL 1 Sig: USE 1 VIAL VIA NEBULIZER FOUR TIMES DAILY Inhaled Combinations Protocol Passed - 03/27/2021 12:00 AM Passed - Visit with relevant provider [...] Passed - Active short-acting beta agonist prescription CTOR OF GLOBAL TALENT documented in this encounter Plan of Treatment Not on file documented as of this encounter Visit Diagnoses Diagnosis COPD with acute exacerbation (HCC) Obstructive chronic bronchitis with exacerbation documented in this encounter Additional Health Concerns Infection Onset Date Last Indicated Resolved Time COVID - 19 04/08/2021 04/08/2021 04/28/2021 12:1 6 AM DIRECTOR OF GLOBAL TALENT COVID - 19 04/04/2022 04/04/2022 04/04/2022 1:54 PM DIRECTOR OF GLOBAL TALENT COVID - 19 04/04/2022 04/04/2022 04/14/2022 12:1 9 AM DIRECTOR OF GLOBAL TALENT COVID - 19 10/22/2024 10/22/2024 10/22/2024 1:38 PM CDT documented as of this encounter Care Teams Emergency Vehicle Operations Instructor Relationship Specialty Start Date End Date Eddie Baker MD #[address] [address] PCP - General Family Medicine 04/16/20 08/01/21 Provider, None [place] PCP - General 08/02/21 10/18/21 Julio Gaston MD [place] PCP - General Internal Medicine 10/19/21 03/12/24 Rickie Aleman MD [address] [facility] [address] [place] [address] PCP - General Morning Babysitter 03/13/24 documented as of this encounter
--- OUTSIDE RECORDS SUMMARY | 2024-12-03 11:49 | XMS_ITS | Encounter Summary ---
Author Organization [facility] Address [address] [place] [address] Phone Care Team Providers Care Ore Crushing Dust Collector Name Role Phone Eddie Baker MD Primary Care Provider + [phone] Provider, None Primary Care Provider Julio Small MD Primary Care Provider [phone] Rickie Aleman MD Primary Care Provider [phone] Reason for Visit * Reason Onset Date Comments Medication Refill 06/13/2021 Encounter Details Date Type Department Care Team (Late st Contact Info) Description 06/13/2021 Refill [facility] - Family [facility] #2 [place] [address] Eddie Baker MD #[address] [address] Medication Refill Social History Tobacco Use Types Packs/Day Years Used Date Smoking Tobacco: Former Cigarettes Q uit: 04/11/2019 Smokeless Tobacco: Former Alcohol Use Standard Drinks/Week Comments No 0 (1 standard drink = 0.6 oz pur e alcohol) Sexually Active Control Partners Comments Yes Female Sex and Gender Information Value Date Recorded Sex Assigned at Not on file Legal Sex Male 3:07 AM SENIOR BUSINESS ANALYST Gender Identity Not on file Sexual Orientation Not on file COVID-19 Exposure Response Date Recorded In the last month, have you been in contact with someone who was confirmed or suspected to have Coronavirus / COVID-19? No / Unsure 06/08/2021 9:22 AM SENIOR BUSINESS ANALYST documented as of this encounter Miscellaneous Notes * Telephone Encounter - Eddie Baker MD - 06/18/2021 7:26 AM SENIOR BUSINESS ANALYST kieran Troncosory you had to deal with is rudeness over the phone! OR BUSINESS ANALYST * Telephone Encounter - Karyna Tovar RN - 06/17/2021 12:04 PM CST FYI OR BUSINESS ANALYST * Telephone Encounter - Karyna Tovar RN - 06/17/2021 11:49 AM CST Called patient to schedule ER follow up. Patient had Nurse Triage 06/08/21 and went to [facility] ER same day and was given Zithromax. Patient was not very nice on the phone stating he called 8 days ago and spoke with a nurse here. Hecalled 06/08/21 and spoke with a call center nurse who triaged him and sent a note to the MD. The [facility] sent a note to a nurse/MOA pool for ER follow up. This was not scheduled. This nurse received a fax from [facility] for a refill on an antibiotic that said, Patient requests New Rx - patient got Zithromax in ER. Feels he is not fully over the infection. When I spoke with patient he was angry that he had not been notified until now even though he had gotten the antibiotic from the ER. I informed him he spoke with a call center nurse, not someone fromthis office, and that Dr Baker wanted him to schedule an ER follow up by telephone if an antibiotic was still needed per his pharmacy. I even offered him an appointment today with Dr Baker's FISH BIN TENDER [facility]. Patient refused appointment and started to get aggressive on the phone with me stating he did not need the antibiotic nor did he need us and he hung up on me. OR BUSINESS ANALYST * Telephone Encounter - Karyna Tovar RN - 06/13/2021 3:[address] Baker 06/08/21 Schedule him for telephone visit soon with me or Harley. Thanks! Pt went to ER 06/08/20 - needs ER follow up telephone visit. OR BUSINESS ANALYST * Telephone Encounter - Mary Zuniga - 06/13/2021 9:04 AM CST Received a faxed Rx request from pharmacy. Reordered refill medication(s) requested and pended for nurse and physician/JAMIE review. Refill encounter routed to nurse Winston's pool for processing. Pt received in the ER. He feels he is not over the infection. OR BUSINESS ANALYST documented in this encounter Plan of Treatment Not on file documented as of this encounter Visit Diagnoses Not on filedocumented in this encounter Additional Health Concerns Infection Onset Date Last Indicated Resolved Time COVID - 19 04/04/2022 04/04/2022 04/04/2022 1:54 PM SENIOR BUSINESS ANALYST COVID - 19 04/04/2022 04/04/2022 04/14/2022 12:1 9 AM SENIOR BUSINESS ANALYST COVID - 19 10/22/2024 10/22/2024 10/22/2024 1:38 PM CDT documented as of this encounter Care Teams Ore Crushing Dust Collector Relationship Specialty Start Date End Date Eddie Baker MD #[address] [address] PCP - General Family Medicine 04/16/20 08/01/21 Provider, None [place] PCP - General 08/02/21 10/18/21 Julio Gaston MD [place] PCP - General Internal Medicine 10/19/21 03/12/24 Rickie Aleman MD [address] [place] [address] PCP - General Stem Shaper 03/13/24 documented as of this encounter
--- OUTSIDE RECORDS SUMMARY | 2024-12-03 11:49 | XMS_ITS | Encounter Summary ---
Author Organization [facility] Address [address] [place] [address] Phone Care Team Providers Care Processor Solid Propellant Name Role Phone Julio Gaston MD Primary Care Provider [phone] Rickie Aleman MD Primary Care Provider [phone] Reason for Visit * Reason Comments Medication Refill Encounter Details Date Type Department Care Team (Late st Contact Info) Description 03/24/2022 [facility]ill [facility] #2 [place] [address] Eddie Baker MD #[address] [address] Medication Refill Social History Tobacco Use Types Packs/Day Years Used Date Smoking Tobacco: Former Cigarettes Q uit: 04/11/2019 Smokeless Tobacco: Former Alcohol Use Standard Drinks/Week Comments No 0 (1 standard drink = 0.6 oz pur e alcohol) Sexually Active Control Partners Comments Yes Female Sex and Gender Information Value Date Recorded Sex Assigned at Not on file Legal Sex Male 3:07 AM BUSINESS INTEGRATION MANAGER Gender Identity Not on file Sexual Orientation Not on file documented as of this encounter Plan of Treatment Not on file documented as of this encounter Visit Diagnoses Not on filedocumented in this encounter Additional Health Concerns Infection Onset Date Last Indicated Resolved Time COVID - 19 04/04/2022 04/04/2022 04/04/2022 1:54 PM BUSINESS INTEGRATION MANAGER COVID - 19 04/04/2022 04/04/2022 04/14/2022 12:1 9 AM BUSINESS INTEGRATION MANAGER COVID - 10/22/2024 10/22/2024 10/22/2024 1:38 PM CDT documented as of this encounter Care Teams Processor Solid Propellant Relationship Specialty Start Date End Date Julio Gaston MD PCP - General Internal Medicine 10/19/21 03/12/24 Rickie Aleman MD 2 [facility] [place] [id number] PCP - General Mammalogy Teacher 03/13/24 documented as of this encounter
--- OUTSIDE RECORDS SUMMARY | 2024-12-03 11:49 | XMS_ITS | Encounter Summary ---
Author Organization [facility] Address [address] [place] [address] Care Team Providers Care First Aid Nurse Name Role Phone Kevon Hogan MD Unavailable [phone] Rosette Florence DO Unavailable [phone] Rusty Lam MD Unavailable [phone] Maria De Jesus Kaur PT Unavailable Unavailable Rickie Aleman MD Primary Care Provider [phone] Reason for Visit * Auth/Cert (Routine) Specialty Diagnoses / Procedures Referred By Contac t Referred To Contact Diagnoses Positive colorectal cancer screening using Cologuard test Encounter for screening colonoscopy Positive colorectal cancer screening using Cologuard test [R19.5] Encounter for screening colonoscopy [Z12.11] Procedures CO COLONOSCOPY FLX DX W/COLLJ SPEC WHEN PFRMD COLONOSCOPY Referral ID Status Reason Start Date Expiration Date Visits Re quested Visits Authorized [id number] 1 1 Encounter Details Date Type Department Care Team (Late st Contact Info) Description 08/28/2024 Hospital Encounter [facility] [address] [place] [address] Samuel Bullock DO [address] [address] Social History Tobacco Use Types Packs/Day Years Used Date Smoking Tobacco: Former Cigarettes 1.5 20 0 05/14/1999 - 05/14/2019 Cigars Smokeless Tobacco: Never Comments:pt quit cigarettes 2 years ago Alcohol [...] on file Legal Sex Male 1:38 AM UPHOLSTERY SEWER Gender Identity Not on file Sexual Orientation Not on file documented as of this encounter Functional Status documented as of this encounter Plan of Treatment Upcoming Encounters Date Type Department Care Team (Late st Contact Info) Description 12/04/2024 1:30 PM CDT Hospital Encounter [facility] [place] [address] documented as of this encounter Visit Diagnoses Diagnosis Positive colorectal cancer screening using Cologuard test Encounter for screening colonoscopy documented in this encounter Admitting Diagnoses Diagnosis Positive colorectal cancer screening using Cologuard test Encounter for screening colonoscopy documented in this encounter Care Teams First Aid Nurse Relationship Specialty Start Date End Date Rickie Aleman MD [address] [facility] [place] [address] PCP - General Family Medicine 01/28/24 Kevon Hogan MD Surgeon Orthopedic Surgery 03/23/21 Rosette Florence DO [address] [facility] [place] [address] Consulting Physician Internal Medicine 12/03/21 Rusty Lam MD [address] [facility] [place] [address] Consulting Physician Cardiology 12/15/21 Maria De Jesus Kaur, PT Physical Therapist Physical Therapy 01/03/22 documented as of this encounter
--- OUTSIDE RECORDS SUMMARY | 2024-12-03 11:49 | XMS_ITS | Encounter Summary ---
Author Organization [facility] Address [address] [place] [address] Phone Care Team Providers Care Rn Hedis Name Role Phone Eddie Baker MD Primary Care Provider [phone] Provider, None Primary Care Provider Julio Small MD Primary Care Provider [phone] Rickie Aleman MD Primary Care Provider [phone] Reason for Visit * Reason Comments Medication Refill Encounter Details Date Type Department Care Team (Late st Contact Info) Description 02/04/2021 Refill [facility] Medical [facility] - Family Medicine [facility] #2 [place] [address] Eddie Baker MD #[address] [address] Medication Refill Social History Tobacco Use Types Packs/Day Years Used Date Smoking Tobacco: Former Cigarettes Q uit: 04/11/2019 Smokeless Tobacco: Former Alcohol Use Standard Drinks/Week Comments No 0 (1 standard drink = 0.6 oz pur e alcohol) Sexually Active Control Partners Comments Yes Female Sex and Gender Information Value Date Recorded Sex Assigned at Not on file Legal Sex Male 3:07 AM TROUBLE DISPATCHER Gender Identity Not on file Sexual Orientation Not on file COVID-19 Exposure Response Date Recorded In the last month, have you been in contact with someone who was confirmed or suspected to have Coronavirus / COVID-19? No / Unsure 02/06/2021 10:48 PM CDT documented as of this encounter Miscellaneous Notes * Telephone Encounter - Karyna Tovar, RN - 02/04/2021 1:27 PM CDT Refused by [facility] 01/27/21, 01/31/21 for refill not appropriate documented in this encounter Plan of Treatment Not on file documented as of this encounter Visit Diagnoses Not on filedocumented in this encounter Additional Health Concerns Infection Onset Date Last Indicated Resolved Time COVID - 19 04/08/2021 04/08/2021 04/28/2021 12:1 6 AM TROUBLE DISPATCHER COVID - 19 04/04/2022 04/04/2022 04/04/2022 1:54 PM TROUBLE DISPATCHER COVID - 19 04/04/2022 04/04/2022 04/14/2022 12:1 9 AM TROUBLE DISPATCHER COVID - 19 10/22/2024 10/22/2024 10/22/2024 1:38 PM CDT documented as of this encounter Care Teams Rn Hedis Relationship Specialty Start Date End Date Eddie Baker MD #[address] [address] PCP - General Family Medicine 04/16/20 08/01/21 Provider, None [place] PCP - General 08/02/21 10/18/21 Julio Gaston MD [place] PCP - General Internal Medicine 10/19/21 03/12/24 Rickie Aleman MD [address] [place] [address] PCP - General Adjunct Physical Education Instructor 03/13/24 documented as of this encounter
--- OUTSIDE RECORDS SUMMARY | 2024-12-03 11:49 | XMS_ITS | Encounter Summary ---
Author Organization [facility] Address [address] [place] [address] Phone Care Team Providers Care Account Liaison Name Role Phone Eddie Baker MD Primary Care Provider [phone] Provider, None Primary Care Provider Julio Small MD Primary Care Provider [phone] Rickie Aleman MD Primary Care Provider [phone] Reason for Visit * Reason Comments Medication Refill Encounter Details Date Type Department Care Team (Late st Contact Info) Description 08/15/2020 Refill [facility] - Family Medicine [facility] #2 [place] [address] Eddie Baker MD #[address] [address] Medication Refill Social History Tobacco Use Types Packs/Day Years Used Date Smoking Tobacco: Former Cigarettes Q uit: 04/11/2019 Smokeless Tobacco: Former Alcohol Use Standard Drinks/Week Comments No 0 (1 standard drink = 0.6 oz pur e alcohol) Sexually Active Control Partners Comments Yes Female Sex and Gender Information Value Date Recorded Sex Assigned at Not on file Legal Sex Male 3:07 AM ORGANIZATIONAL EFFECTIVENESS DIRECTOR Gender Identity Not on file Sexual Orientation Not on file COVID-19 Exposure Response Date Recorded In the last month, have you been in contact with someone who was confirmed or suspected to have Coronavirus / COVID-19? No / Unsure 08/04/2020 4:22 PM CDT documented as of this encounter Miscellaneous Notes * Telephone Encounter - Mayra Portillo RN - 08/16/2020 1:48 PM CDT Medication failed the protocol, provider to review and approve the medication order if appropriate. Requested Prescriptions Pending Prescriptions Disp Refills busPIRone (BUSPAR) 10 MG Tablet [Pharmacy Med Name: BUSPIRONE HCL 10 MG TABLET] 60 Tablet 2 Sig: TAKE 1 TABLET BY MOUTH TWICE A DAY Not Delegated - Psychiatry: Anxiolytics/Hypnotics Failed - 08/15/2020 12:04 AM Failed - This refill cannot be delegated Passed - Valid encounter within last 6 months Past Office Visits Recent Outpatient Visits 3 weeks ago URI, acute [facility] - Eddie Santana MD 2 months ago Centrilobular emphysema (HCC) [facility] - Harley Kinney APN, CNP 3 months ago COPD with acute exacerbation (HCC) [facility] - Harley Kinney APN, CNP 3 months ago Chronic bronchitis, unspecified chronic bronchitis type (HCC) [facility] Eddie Santana MD Upcoming Appointments Future Appointments In 1 month Martha Kim APN, CNP [facility], [facility] In 2 months Eddie [facility] - Recent and Past Visits Recent Visits Date Type Provider Dept 07/22/20 Office Visit Eddie Baker MD [facility] 05/28/20 Office Visit Harley Segundo APN, CNP [facility] 05/04/20 Telemedicine Harley Segundo APN, CNP [facility] 04/19/20 Office Visit Eddie Baker MD [facility] Showing recent visits within past 460 days with a meds authorizing provider and meeting all other requirements Future Appointments Date Type Provider Dept 10/25/20 Appointment Eddie Baker MD [facility] Masoud Showing future appointments within next 90 days with a meds authorizing provider and meeting all other requirements documented in this encounter Plan of Treatment Not on file documented as of this encounter Visit Diagnoses Not on filedocumented in this encounter Additional Health Concerns Infection Onset Date Last Indicated Resolved Time COVID - 19 04/08/2021 04/08/2021 04/28/2021 12:1 6 AM ORGANIZATIONAL EFFECTIVENESS DIRECTOR COVID - 19 04/04/2022 04/04/2022 04/04/2022 1:54 PM ORGANIZATIONAL EFFECTIVENESS DIRECTOR COVID - 19 04/04/2022 04/04/2022 04/14/2022 12:1 9 AM ORGANIZATIONAL EFFECTIVENESS DIRECTOR COVID - 19 10/22/2024 10/22/2024 10/22/2024 1:38 PM CDT documented as of this encounter Care Teams Account Liaison Relationship Specialty Start Date End Date Eddie Baker MD #[address] [facility] [place] [address] PCP - General Family Medicine 04/16/20 08/01/21 Provider, None [place] PCP - General 08/02/21 10/18/21 Julio Gatson MD [place] PCP - General Internal Medicine 10/19/21 03/12/24 Rickie Aleman MD [address] [place] [address] [place] [address] PCP - General Assistant Professor Of Music 03/13/24 documented as of this encounter
--- OUTSIDE RECORDS SUMMARY | 2024-12-03 11:49 | XMS_ITS | Encounter Summary ---
Author Organization [facility] Address [address] [place] [address] Phone Care Team Providers Care Staff Counselor Name Role Phone Eddie Baker MD Primary Care Provider + [phone] Provider, None Primary Care Provider Julio Small MD Primary Care Provider [phone] Rickie Aleman MD Primary Care Provider [phone] Reason for Visit * Reason Comments Medication Refill Encounter Details Date Type Department Care Team (Late st Contact Info) Description 07/22/2021 Refill [facility] Medical Group - Family Medicine [facility] #2 [place] [address] Eddie Baker MD #[address] [address] Medication Refill Social History Tobacco Use Types Packs/Day Years Used Date Smoking Tobacco: Former Cigarettes Q uit: 04/11/2019 Smokeless Tobacco: Former Alcohol Use Standard Drinks/Week Comments No 0 (1 standard drink = 0.6 oz pur e alcohol) Sexually Active Control Partners Comments Yes Female Sex and Gender Information Value Date Recorded Sex Assigned at Not on file Legal Sex Male 3:07 AM TIRE FABRIC INSPECTOR Gender Identity Not on file Sexual Orientation Not on file COVID-19 Exposure Response Date Recorded In the last month, have you been in contact with someone who was confirmed or suspected to have Coronavirus / COVID-19? No / Unsure 07/05/2021 2:36 PM TIRE FABRIC INSPECTOR documented as of this encounter Miscellaneous Notes * Telephone Encounter - Karyna Tovar RN - 07/22/2021 3:20 PM CST duplicate FABRIC INSPECTOR documented in this encounter Plan of Treatment Not on file documented as of this encounter Visit Diagnoses Not on filedocumented in this encounter Additional Health Concerns Infection Onset Date Last Indicated Resolved Time COVID - 19 04/04/2022 04/04/2022 04/04/2022 1:54 PM TIRE FABRIC INSPECTOR COVID - 19 04/04/2022 04/04/2022 04/14/2022 12:1 9 AM TIRE FABRIC INSPECTOR COVID - 19 10/22/2024 10/22/2024 10/22/2024 1:38 PM CDT documented as of this encounter Care Teams Staff Counselor Relationship Specialty Start Date End Date Eddie Baker MD #2 [facility] [place] [address] [place] [address] PCP - General Family Medicine 04/16/20 08/01/21 Provider, None [place] PCP - General 08/02/21 10/18/21 Julio Gaston MD [place] PCP - General Internal Medicine 10/19/21 03/12/24 Rickie Aleman MD 2 [facility] [place] [address] [place] [address] PCP - General Drawer Fitter 03/13/24 documented as of this encounter
--- OUTSIDE RECORDS SUMMARY | 2024-12-03 11:49 | XMS_ITS | Encounter Summary ---
Author Organization [facility] Address [address] [place] [address] Phone Care Team Providers Care Turret Lathe Set Up Operator Name Role Phone Eddie Baker MD Primary Care Provider [phone] Provider, None Primary Care Provider Julio Small MD Primary Care Provider [phone] Rickie Aleman MD Primary Care Provider [phone] Reason for Visit * Reason Comments Medication Refill Encounter Details Date Type Department Care Team (Late st Contact Info) Description 09/27/2020 Refill [facility] - Family Medicine [facility] #2 [place] [address] Eddie Baker MD #[address] [address] Medication Refill Social History Tobacco Use Types Packs/Day Years Used Date Smoking Tobacco: Former Cigarettes Q uit: 04/11/2019 Smokeless Tobacco: Former Alcohol Use Standard Drinks/Week Comments No 0 (1 standard drink = 0.6 oz pur e alcohol) Sexually Active Control Partners Comments Yes Female Sex and Gender Information Value Date Recorded Sex Assigned at Not on file Legal Sex Male 3:07 AM SPECIAL EFFECTS MAKEUP ARTIST Gender Identity Not on file Sexual Orientation Not on file COVID-19 Exposure Response Date Recorded In the last month, have you been in contact with someone who was confirmed or suspected to have Coronavirus / COVID-19? No / Unsure 09/28/2020 8:23 AM CDT documented as of this encounter Miscellaneous Notes * Telephone Encounter - Karyna Tovar RN - 09/28/2020 1:45 PM CDT predniSONE (DELTASONE) 50 MG Tablet 4 Tablet 0 09/28/2020 Sig - Route: Take 1 Tablet by mouth daily. - Oral Sent to pharmacy as: predniSONE 50 MG Oral Tablet (DELTASONE) Class: E Prescribe E-Prescribing Status: Receipt confirmed by pharmacy (09/28/2020 ??8:48 AM CDT) predniSONE (DELTASONE) 50 MG Tablet [[id number]] Status: Active Ordering user: Seb Domingo MD 09/28/20847 Ordering provider: Seb Domingo MD Authorized by: Seb Domingo MD Frequency: Daily 09/28/20 - Until Discontinued Pharmacy [id number] [place], [place] - [address] [facility] documented in this encounter Plan of Treatment Not on file documented as of this encounter Visit Diagnoses Not on filedocumented in this encounter Additional Health Concerns Infection Onset Date Last Indicated Resolved Time COVID - 19 04/08/2021 04/08/2021 04/28/2021 12:1 6 AM SPECIAL EFFECTS MAKEUP ARTIST COVID - 19 04/04/2022 04/04/2022 04/04/2022 1:54 PM SPECIAL EFFECTS MAKEUP ARTIST COVID - 19 04/04/2022 04/04/2022 04/14/2022 12:1 9 AM SPECIAL EFFECTS MAKEUP ARTIST COVID - 19 10/22/2024 10/22/2024 10/22/2024 1:38 PM CDT documented as of this encounter Care Teams Turret Lathe Set Up Operator Relationship Specialty Start Date End Date Eddie Baker MD #[address] [address] PCP - General Family Medicine 04/16/20 08/01/21 Provider, None [place] PCP - General 08/02/21 10/18/21 Julio Gaston MD [place] PCP - General Internal Medicine 10/19/21 03/12/24 Rickie Aleman MD [address] [facility] [address] [place] [address] [place], [place] [address] [address] PCP - General Art Psychotherapist 03/13/24 documented as of this encounter
--- OUTSIDE RECORDS SUMMARY | 2024-12-03 11:49 | XMS_ITS | Encounter Summary ---
Author Organization [facility] Address [address] [place] [address] Phone Care Team Providers Care Director Talent Management Name Role Phone Eddie Baker MD Primary Care Provider [phone] Provider, None Primary Care Provider Julio Small MD Primary Care Provider [phone] Rickie Aleman MD Primary Care Provider [phone] Reason for Visit * Reason Comments Medication Refill Encounter Details Date Type Department Care Team (Late st Contact Info) Description 08/31/2020 Refill [facility] - Family Medicine [facility] ([facility] #2 [place] [address] Eddie Baker MD #[address] [address] Medication Refill Social History Tobacco Use Types Packs/Day Years Used Date Smoking Tobacco: Former Cigarettes Q uit: 04/11/2019 Smokeless Tobacco: Former Alcohol Use Standard Drinks/Week Comments No 0 (1 standard drink = 0.6 oz pur e alcohol) Sexually Active Control Partners Comments Yes Female Sex and Gender Information Value Date Recorded Sex Assigned at Not on file Legal Sex Male 3:07 AM SEED COLLECTOR Gender Identity Not on file Sexual Orientation Not on file COVID-19 Exposure Response Date Recorded In the last month, have you been in contact with someone who was confirmed or suspected to have Coronavirus / COVID-19? No / Unsure 08/04/2020 4:22 PM CDT documented as of this encounter Miscellaneous Notes * Telephone Encounter - Karyna Tovar RN - 09/01/2020 2:33 PM CDT duplicate documented in this encounter Plan of Treatment Not on file documented as of this encounter Visit Diagnoses Diagnosis Centrilobular emphysema (HCC) Other emphysema documented in this encounter Additional Health Concerns Infection Onset Date Last Indicated Resolved Time COVID - 19 04/08/2021 04/08/2021 04/28/2021 12:1 6 AM SEED COLLECTOR COVID - 19 04/04/2022 04/04/2022 04/04/2022 1:54 PM SEED COLLECTOR COVID - 19 04/04/2022 04/04/2022 04/14/2022 12:1 9 AM SEED COLLECTOR COVID - 19 10/22/2024 10/22/2024 10/22/2024 1:38 PM CDT documented as of this encounter Care Teams Director Talent Management Relationship Specialty Start Date End Date Eddie Baker MD #[address] [address] PCP - General Family Medicine 04/16/20 08/01/21 Provider, None [place] PCP - General 08/02/21 10/18/21 Julio Gaston MD [place] PCP - General Internal Medicine 10/19/21 03/12/24 Rickie Aleman MD [address] [place] [address] PCP - General Agribusiness Professor 03/13/24 documented as of this encounter
--- OUTSIDE RECORDS SUMMARY | 2024-12-03 11:49 | XMS_ITS | Encounter Summary ---
Author Organization [facility] Address [address] [place] [address] Phone Care Team Providers Care Director Facilities Maintenance Name Role Phone Julio Gaston MD Primary Care Provider [phone] Rickie Aleman MD Primary Care Provider [phone] Reason for Visit * Reason Comments Medication Refill Encounter Details Date Type Department Care Team (Late st Contact Info) Description 12/29/2022 Refill [facility] [address]2 [place] [address] Eddie Baker MD #[address] [address] Medication Refill Social History Tobacco Use Types Packs/Day Years Used Date Smoking Tobacco: Former Cigarettes Q uit: 04/11/2019 Smokeless Tobacco: Former Alcohol Use Standard Drinks/Week Comments No 0 (1 standard drink = 0.6 oz pur e alcohol) Sexually Active Control Partners Comments Yes Female Sex and Gender Information Value Date Recorded Sex Assigned at Not on file Legal Sex Male 3:07 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 No / Unsure 12/19/2022 2:00 PM CDT documented as of this encounter Miscellaneous Notes * Telephone Encounter - Karyna Tovar RN - 12/29/2022 12:35 PM CDT PCP is Julio Gaston documented in this encounter Plan of Treatment Not on file documented as of this encounter Visit Diagnoses Not on filedocumented in this encounter Additional Health Concerns Infection Onset Date Last Indicated Resolved Time COVID - 19 10/22/2024 10/22/2024 10/22/2024 1:38 PM CDT documented as of this encounter Care Teams Director Facilities Maintenance Relationship Specialty Start Date End Date Julio Gaston MD PCP - General Internal Medicine 10/19/21 03/12/24 Rickie Aleman MD [address] [place] [address] [address] PCP - General Weigh And Charge Worker 03/13/24 documented as of this encounter
--- OUTSIDE RECORDS SUMMARY | 2024-12-03 11:49 | XMS_ITS | Referral Summary ---
Author Organization [facility] Address [address] [place] [address] Care Team Providers Care Weapons Officer [employer] Name Role Phone Kevon Hogan MD Unavailable [phone] Ludivina Rosette Unavailable [phone] Rusty Lam MD Unavailable [phone] Maria De Jesus Kaur PT Unavailable Unavailable Rickie Aleman MD Primary Care Provider [phone] Encounters Date Type Department Care Team Description 11/30/2024 Results Follow-Up [facility] [place] [address] [place] [phone] Reyna Ortiz NP Urine culture Urine, clean voided 11/28/2024 11:17 AM CDT - 11/28/2024 11:59 PM CDT Hospital Encounter [address] [address] Urinary pain Discharge Disposition: Discharge to home or self care 11/28/2024 11:00 AM CDT Office Visit [facility] [place] [address] [place] [phone] Cheyenne Jessica NP Urinary pain (Primary Dx) 11/18/2024 Orders Only [facility] Orthopedics and Sports Medicine at [address] [address] Venkat Cheng MD Primary osteoarthritis of right hip (Primary Dx); Pain of right hip 11/17/2024 Telephone [facility] [id number] [place] [address] Tamara Lock 11/13/2024 11:45 AM CDT Office Visit [facility] Medical [facility] Orthopedics and Sports Medicine at [facility] [address] [place] [address] [address] [place] [address] Venkat Cheng MD Primary osteoarthritis of right hip (Primary Dx) 10/27/2024 2:45 PM CDT Office Visit [facility] Medical Group [facility] [place] [address] [place] [address] Cheeynne Jessica NP COPD with acute exacerbation (HCC) (Primary Dx) 10/02/2024 3:45 PM CDT Office Visit [facility] Primary Care at [address] [place] [address] Rickie Aleman MD Primary hypertension (Primary Dx); Class 2 severe obesity due to excess calories with serious comorbidity and body mass index (BMI) of 38.0 to 38.9 in adult (HCC); Traumatic brain injury with loss of consciousness, sequela; Mixed hyperlipidemia from Last 3 Months Allergies Active Allergy Reactions Criticality Noted Date [...] 06/27/2023 Assessment & Plan (06/27/2023 11:47 AM WHEELAGE CLERK): Failed 6 months of intensive care unit registered nurse and recommend MRI lumbar spine and following up with pain management as they direct Difficulty controlling anger 06/27/2023 Assessment & Plan (06/27/2023 11:51 AM WHEELAGE CLERK): Outpatient counseling referral requested. Increase exercise. Mixed [...] day Assessment & Plan (04/17/2024 3:01 PM WHEELAGE CLERK): Lab Results Component Value Date CHOL 145 [...] day Assessment & Plan (04/02/2024 3:48 PM WHEELAGE CLERK): Lab Results Component Value Date CHOL 145 [...] day Assessment & Plan (06/27/2023 11:48 AM WHEELAGE CLERK): Continue atorvastatin check lipids and LFTs this week and call back for results Cardiopulmonary arrest with successful resuscita tion 12/13/2021 Positive urine drug screen 12/13/2021 Coronary artery disease 09/23/2021 Assessment & Plan (01/28/2024 1:03 PM CDT): Continue current medication regimen follow up with Cardiology as they direct Assessment & Plan (06/27/2023 11:50 AM WHEELAGE CLERK): Continue current medication regimen follow up with Cardiology as they direct Assessment & Plan (12/22/2022 3:18 PM CDT): Continue current medication regimen follow up with tacker elastic band as they direct Assessment & Plan (03/30/2022 12:11 PM WHEELAGE CLERK): Continue current medication regimen follow up with tacker elastic band as they direct. Assessment & Plan (01/16/2022 11:22 PM CDT): Continue current medication regimen follow up with tacker elastic band as they direct Assessment & Plan (09/23/2021 5:26 PM CDT): Continue current medication regimen follow up with tacker elastic band as they direct. Healthcare maintenance 09/23/2021 Assessment [...] (03/14/2021): Added automatically from request for surgery [id number] Mild intermittent asthma without complication Lung nodule 07/22/2020 Overview (12/27/2021): multiple stable nodules 07/2020 [facility] No suspicious nodules 10/[address] chest Assessment & Plan (09/23/2021 5:23 PM CDT): Repeat low-dose CT chest at his convenience and call back for results CVA (cerebral vascular accident) ([facility]) 05/04 Overview (09/23/2021): Retinal occlusion 2019 Assessment & Plan (01/28/2024 1:03 PM CDT): Follow-up with neurology/cardio as they direct. Continue aspirin, atorvastatin, carvedilol. Assessment & Plan (06/27/2023 11:47 AM WHEELAGE CLERK): Follow-up with neurology as they direct. Continue [...] counseling. Assessment & Plan (04/17/2024 2:58 PM WHEELAGE CLERK): Wt Readings from Last 3 Encounters: 04/17/24 [...] counseling. Assessment & Plan (04/02/2024 3:43 PM WHEELAGE CLERK): Wt Readings from Last 3 Encounters: 04/02/24 [...] bid Assessment & Plan (04/17/2024 3:01 PM WHEELAGE CLERK): BP Readings from Last 3 Encounters: 04/17/24 [...] bid Assessment & Plan (04/02/2024 3:46 PM WHEELAGE CLERK): BP Readings from Last 3 Encounters: 04/02/24 [...] bid Assessment & Plan (06/27/2023 11:48 AM WHEELAGE CLERK): Well controlled on carvedilol Assessment & Plan (12/22/2022 3:17 PM CDT): Blood pressure well controlled on carvedilol Assessment & Plan (03/30/2022 12:10 PM WHEELAGE CLERK): Well controlled on the current regimen. Avoidance [...] needed Assessment & Plan (06/27/2023 11:50 AM WHEELAGE CLERK): Stable on Symbicort twice daily and albuterol as needed Assessment & Plan (12/22/2022 3:17 PM CDT): Stable on Symbicort use albuterol as needed Assessment & Plan (03/30/2022 12:10 PM WHEELAGE CLERK): Stable on his Symbicort. Assessment & Plan [...] Continue current medication regimen follow up with tacker elastic band as they direct Resolved Problems Problem Noted [...] 01/28/2024 Assessment & Plan (04/10/2022 6:05 AM WHEELAGE CLERK): Amoxicillin and call back if no improvement Anemia 03/30/2022 01/28/2024 Overview (12/22/2022): Normal iron, b12,folate 12/2022; TSH 4.35, Free t4 0.97 Assessment & Plan (12/22/2022 2:44 PM CDT): Resolved, labs normal. Assessment & Plan (03/30/2022 12:10 PM WHEELAGE CLERK): Check labs before next visit. Fatty liver 12/13/2021 01/28/2024 Toxic metabolic encephalopathy 12/13/2021 01/28/2024 IFG (impaired fasting glucose) 09/23/2021 01/28/2024 Assessment & Plan (06/27/2023 11:49 AM WHEELAGE CLERK): Reduce sugars and carbs increase exercise and check A1c this week and call back for results. Assessment & Plan (12/22/2022 3:17 PM CDT): Patient should reduce sugar and carbs, increase exercise, maintain proper body weight, and will check an A1c once or twice yearly. Assessment & Plan (03/30/2022 12:10 PM WHEELAGE CLERK): Patient should reduce sugar and carbs, increase [...] hypoglycemia Assessment & Plan (06/20/2021 10:05 AM WHEELAGE CLERK): This is a chronic problem associated with shortness of breath and lightheaded ness Referred to the dietitian Labs ordered Reviewed signs and symptoms of hypoglycemia Reviewed treatment for hypoglycemia Labs ordered. Previous A!C level 5.1, 5.4, today 5.3-not diabetic Encouraged to continue monitoring for hypoglycemia Influenza A 07/14/2019 09/23/2021 Acute exacerbation of COPD w ith asthma ([facility]) 07/14/2019 01/28/2024 Essential hypertension 07/14/201909/23 Assessment & [...] of left shoulder 05/22/2018 01/28/2024 Atypical pneumonia Sleep apnea 09/23/2021 Type 2 diabetes mellitus with hyperlipidemia 06/27/2023 Overview (09/23/2021): Improved a1c with 80lb weight loss Immunizations Immunization Administration Dates Next Due Influenza, Quadrivalent, Spl it, Preservative Free, Intramuscular 03/30/2022 Influenza, Unspecified 08/11/2024(Deferr ed: Patient Refused),04/02/2024(Deferred: Patient ill today),01/28/2024(Deferred: Patient Refused),03/12/2023,02/11/2021(Deferre d: Patient Refused),02/11/2021(Deferred: Patient Refused),02/11/2021(Deferred: Patient Refused) Pneumococcal Conjugate Pcv20 03/30/2022 Pneumococcal Polysaccharide PPV23 02/16/2020 Td, Unspecified 05/17/2020 Social History Tobacco Use Types Packs/Day Years [...] on file Legal Sex Male 1:38 AM WHEELAGE CLERK Gender Identity Not on file Sexual Orientation [...] Description 12/04/2024 1:30 PM CDT Hospital Encounter [facility] [address] [place] [address] Medical Devices Implanted Type Area Department Mgr Device Identifier Shelf Expiration Date Model / Serial / Lot Lens Lens Bilater al: Eye Other - See Comments Other - see comments Bilater al: Knee Other - See Comments Other - see comments Left: Hip [employer] [id number] [place] 56mm 36mm Hip Neutral Liner Acetabular Altrx Sterile Latex Free - [id number] Implanted:Qty: 1 on 03/23/2021 by Kevon Hogan MD at [facility] Left: Hip [employer] 01/11/2026 [id number] / / [id number] [employer] [id number] [place] 56mm Sector Hip Shell Acetabular Gription Sterile Latex Free - [id number] Implanted:Qty: 1 on 03/23/2021 by Kevon Hogan MD at [facility] Left: Hip [employer] 12/11/2030 [id number] / / [id number] [employer] [id number] Actis L111 Mm Collar Hip 8 High Offset Stem Femoral - [id number] Implanted:Qty: 1 on 03/23/2021 by Kevon Hogan MD at [facility] Left: Hip [employer] 01/11/2031 [id number] / / [id number] [employer] [id number] Articul/Zeus 36mm Cementless Hip +8.5mm 12/14 Taper Head Femoral Latex Free - [id number] Implanted:Qty: 1 on 03/23/2021 by Kevon Hogan MD at [facility] Left: Hip [employer] 12/11/2025 [id number] / / [id number] [employer]ig [employer] [id number] Angio-Seal Evolution 6fr .035in Guidewire Bypass Tube Suture - [id number] Implanted:Qty: 1 on 05/11/2021 by Rusty Lam MD at [facility] [employer] 01/11/2022 [id number] / / [id number] Procedures Procedure Name Priority Date/Time Associated Diagnosis Comments URINE CULTURE Routine 11/28/2024 11:17 AM CDT Urinary pain POCT URINALYSIS DIPSTICK Routine 11/28/2024 10:49 AM CDT Urinary pain STOOL DNA COLOGUARD Routine 02/28/2024 10:00 AM CDT Colon cancer screening POCT HEMOGLOBIN A1C Routine 01/28/2024 1:32 PM CDT Healthcare maintenance CT LUNG CANCER SCREENING Schedule Routine, Read Routine (OP Routine) 06/07/2023 9:22 AM WHEELAGE CLERK History of nicotine dependence EGFR Routine 12/22/2022 [...] Report: No growth Comment:Testing performed by : [facility], [address] [place]., [address] Urine, clean voided 11/28/2024 11:17 AM CDT 11/29/2024 12:16 AM CDT Narrative APOLLO Hicks 11/30/2024 6:24 AM CDT Testing performed by [facility] Microbiology Laboratory ([phone]) us Cheyenne Jessica NP LAB MICROBIOLOGY - GENERAL ORD ERABLES Final Result APOLLO BAILEY [id number] [address] Department [place] [address] * POCT urinalysis dipstick (11/28/2024 10:49 AM CDT) Color, Urine, POC Yellow Clarity, ur, POC Clear Clear Glucose, ur, POC Negative Negative Bilirubin, ur, POC Negative Negative Ketones, ur, POC Negative Negative Specific [place], POC 1.015 1.003 - 1.030 Blood, ur, POC Negative Negative pH, ur, POC 5.5 5.0 - 8.0 Protein, ur, POC Negative Negative Urobilinogen, urine, POC 0.2 0.2 - 1.0 mg/dL Nitrite, ur, POC Negative Negative Leukocytes, ur, POC Negative Negative Lot Number [id number] Urine 11/28/2024 10:4 9 AM CDT Cheyenne Jessica LABORER [employer] POINT OF CARE TEST ORDERABLES Final Result * (ABNORMAL) Stool DNA - Cologuard (02/28/2024 10:00 AM CDT) Pathologist [facility] Stool DNA - Cologuard Positive( A) Negative [employer] (CLIA #:[id number]) Comment: POSITIVE TEST RESULT. A positive Cologuard [...] were screened with both Cologuard and colonoscopy. (Imperiale T. et al, N Engl J Med 2014;370(14):8546-0510.) Cologuard may produce a false negative or false positive result (no colorectal cancer or precancerous polyp present at colonoscopy follow up). A negative Cologuard test result does not guarantee the absence of CRC or advanced adenoma (pre-cancer). The current Cologuard screening interval is every 3 years. ([place] Cancer Society and U.S. Multi-Society Task Force). Cologuard performance data in a 10,000 patient pivotal study using colonoscopy as the reference method can be accessed at the following location: www.[email or web address]/results. Additional description of the Cologuard test process, warnings and precautions can be found at www.cologuard.com. Stool 02/28/2024 10:0 0 AM CDT 02/29/2024 11:41 AM CDT us Rickie Aleman MD LAB BODY FLUIDS AND STOOLS ORDER EVERT Final Result [email or web address] (CLIA #:[id number]) [place] [address] * POCT hemoglobin A1c (01/28/2024 1:32 PM CDT) Hemoglobin A1C, POC 5.8 4.0 - 5.6 % Capillary blood 01/28/2024 1 :32 PM CDT us Rickie Aleman MD POINT OF CARE TEST ORDERABLES Fi nal Result * CT Lung Cancer Screening (06/07/2023 9:22 AM WHEELAGE CLERK) Anatomical Region Laterality Modality Chest N/A Computed Tomogra phy 06/07/2023 1:29 PM WHEELAGE CLERK Narrative 06/07/2023 1:37 PM WHEELAGE CLERK EXAM DESCRIPTION: CT LUNG CANCER SCREENING REASON [...] Art Monge M.D. KN: OLIVER Report ID: [id number] Reading Location: [place] [address] Procedure Note Art Monge MD - 06/07/2023 [...] Art Monge M.D. KN: OLIVER Report ID: [id number] Reading Location: [place] [address] Julio Gaston MD IMG CT PROCEDURES Final Resu lt * eGFR (12/22/2022 6:25 AM CDT) eGFR 97 mL/min/1. 73 m2 APOLLO MEYER (AGUADA) Comment: Interpretive Data Reference Interval Normal >/= [...] 6:25 AM CDT 12/22/2022 6:54 AM CDT Julio Gaston MD LAB BLOOD ORDERABLES Final R esult APOLLO MEYER (AGUADA) 1 [facility] [place] [address] * (ABNORMAL) Lipid panel (12/22/2022 6:25 AM [...] last revised on 2018. Chol/HDL ratio 4 JARET MEYER (LONNY) Blood 12/22/2022 6:25 AM CDT 12/22/2022 6:54 AM CDT Narrative APOLLO MEYER (LONNY) - 12/22/2022 8:13 AM CDT fasting us Julio Gaston MD LAB BLOOD ORDERABLES Final R esult APOLLO MEYER (LONNY) 1 [facility] [place] [address] * PSA screen (12/30/2021 6:30 AM CDT) PSA-Total 0.98 <=5.40 ng/mL APOLLO MEYER (LONNY) Comment: Interpretive Data AGE SEX REFERENCE INTERVAL [...] data last revised 21. Testing performed by: [facility], [address] [place] [address]., [address] Blood 12/30/2021 6:30 AM CDT 12/30/2021 9:33 AM CDT us Julio Gaston MD LAB BLOOD ORDERABLES Final R esult APOLLO [facility] (AGUADA) 1 [facility] [place] [address] from Last 3 Months or Most Recently Relevant to Health Maintenance Insurance [facility] MEDICARE ADVANTAGE [facility] [place] [address] IDMO [facility] [place] [address] IDPA Advance Directives For more information, please contact: [phone] * LIMITED - No CPR (Latest Code [...] 9:29 AM 09/28/2019 2:01 PM Care Teams Weapons Officer [employer] Relationship Specialty Start Date End Date Rickie Aleman MD [address] [facility] [place] [address] PCP - General Family Medicine 01/28/24 Kevon Hogan MD Surgeon Orthopedic Surgery 03/23/21 Rosette Florence DO [address] [facility] [place] [address] Consulting Physician Internal Medicine 12/03/21 Rusty Lam MD [address] [facility] [place] [address] Consulting Physician Cardiology 12/15/21 Maria De Jesus Kaur PT Physical Therapist Physical Therapy 01/03/22
--- OUTSIDE RECORDS SUMMARY | 2024-12-03 11:49 | XMS_ITS | Encounter Summary ---
Author Organization [facility] Address [address] [place] [address] Phone Care Team Providers Care Cement Finisher Apprentice Name Role Phone Julio Gaston MD Primary Care Provider [phone] Rickie Aleman MD Primary Care Provider [phone] Reason for Visit * Reason Comments Medication Refill Encounter Details Date Type Department Care Team (Late st Contact Info) Description 02/11/2023 Refill [facility] [address] [place] [address] Eddie Baker MD #[address] [address] Medication Refill Social History Tobacco Use Types Packs/Day Years Used Date Smoking Tobacco: Former Cigarettes Q uit: 04/11/2019 Smokeless Tobacco: Former Alcohol Use Standard Drinks/Week Comments No 0 (1 standard drink = 0.6 oz pur e alcohol) Sexually Active Control Partners Comments Yes Female Sex and Gender Information Value Date Recorded Sex Assigned at Not on file Legal Sex Male 3:07 AM SECURITY ADMINISTRATOR Gender Identity Not on file Sexual Orientation Not on file documented as of this encounter Plan of Treatment Not on file documented as of this encounter Visit Diagnoses Not on filedocumented in this encounter Additional Health Concerns Infection Onset Date Last Indicated Resolved Time COVID - 19 10/22/2024 10/22/2024 10/22/2024 1:38 PM CDT documented as of this encounter Care Teams Cement Finisher Apprentice Relationship Specialty Start Date End Date Julio Gaston MD PCP - General Internal Medicine 10/19/21 03/12/24 Rickie Aleman MD 2 [facility] [address] [address] PCP - General Catering Service Manager 03/13/24 documented as of this encounter
--- OUTSIDE RECORDS SUMMARY | 2024-12-03 11:49 | XMS_ITS | Encounter Summary ---
Author Organization [facility] Address [address] [place] [address] Phone Care Team Providers Care Spray Machine Loader Name Role Phone Julio Gaston MD Primary Care Provider [phone] Rickie Aleman MD Primary Care Provider [phone] Reason for Visit * Reason Comments Medication Refill Encounter Details Date Type Department Care Team (Late st Contact Info) Description 04/23/2022 Refill [facility] #2 [place] [address] Eddie Baker MD #[address] [address] Medication Refill Social History Tobacco Use Types Packs/Day Years Used Date Smoking Tobacco: Former Cigarettes Q uit: 04/11/2019 Smokeless Tobacco: Former Alcohol Use Standard Drinks/Week Comments No 0 (1 standard drink = 0.6 oz pur e alcohol) Sexually Active Control Partners Comments Yes Female Sex and Gender Information Value Date Recorded Sex Assigned at Not on file Legal Sex Male 3:07 AM LABORATORY ASSOCIATE Gender Identity Not on file Sexual Orientation Not on file COVID-19 Exposure Response Date Recorded In the last 10 days, have yo u been in contact with someone who was confirmed or suspected to have Coronavirus/COVID-19? No / Unsure 04/04/2022 3:05 PM LABORATORY ASSOCIATE documented as of this encounter Plan of Treatment Not on file documented as of this encounter Visit Diagnoses Diagnosis Centrilobular emphysema (HCC) Other emphysema documented in this encounter Additional Health Concerns Infection Onset Date Last Indicated Resolved Time COVID - 19 10/22/2024 10/22/2024 10/22/2024 1:38 PM CDT documented as of this encounter Care Teams Spray Machine Loader Relationship Specialty Start Date End Date Julio Gaston MD PCP - General Internal Medicine 10/19/21 03/12/24 Rickie Aleman MD 2 [facility] [address] [address] PCP - General Digital Designer 03/13/24 documented as of this encounter
--- OUTSIDE RECORDS SUMMARY | 2024-12-03 11:49 | XMS_ITS | Encounter Summary ---
Author Organization [facility] Address [address] [place] [address] Phone Care Team Providers Care Assistant Federal Public Defender Name Role Phone Julio Gaston MD Primary Care Provider [phone] Rickie Aleman MD Primary Care Provider [phone] Reason for Visit * Reason Comments Medication Refill Encounter Details Date Type Department Care Team (Late st Contact Info) Description 02/06/2022 Refill [facility] #2 [place] [address] Eddie Baker MD #[address] [address] Medication Refill Social History Tobacco Use Types Packs/Day Years Used Date Smoking Tobacco: Former Cigarettes Q uit: 04/11/2019 Smokeless Tobacco: Former Alcohol Use Standard Drinks/Week Comments No 0 (1 standard drink = 0.6 oz pur e alcohol) Sexually Active Control Partners Comments Yes Female Sex and Gender Information Value Date Recorded Sex Assigned at Not on file Legal Sex Male 3:07 AM MILK DELIVERER Gender Identity Not on file Sexual Orientation Not on file COVID-19 Exposure Response Date Recorded In the last 10 days, have yo u been in contact with someone who was confirmed or suspected to have Coronavirus/COVID-19? No / Unsure 01/28/2022 5:12 PM CDT documented as of this encounter Plan of Treatment Not on file documented as of this encounter Visit Diagnoses Not on filedocumented in this encounter Additional Health Concerns Infection Onset Date Last Indicated Resolved Time COVID - 19 04/04/2022 04/04/2022 04/04/2022 1:54 PM MILK DELIVERER COVID - 19 04/04/2022 04/04/2022 04/14/2022 12:1 9 AM MILK DELIVERER COVID - 19 10/22/2024 10/22/2024 10/22/2024 1:38 PM CDT documented as of this encounter Care Teams Assistant Federal Public Defender Relationship Specialty Start Date End Date Julio Gaston MD PCP - General Internal Medicine 10/19/21 03/12/24 Rickie Aleman MD 2 [facility] [address] [address] PCP - General Solar Process Engineer 03/13/24 documented as of this encounter
--- OUTSIDE RECORDS SUMMARY | 2024-12-03 11:49 | XMS_ITS | Encounter Summary ---
Author Organization [facility] Address [address] [place] [address] Phone Care Team Providers Care General Office Associate Name Role Phone Provider, None Primary Care Provider [facility] Julio Gaston MD Primary Care Provider [phone] Rickie Aleman MD Primary Care Provider [phone] Reason for Visit * Reason Comments Medication Refill Encounter Details Date Type Department Care Team (Late st Contact Info) Description 10/11/2021 Refill [facility] #2 [place] [address] Eddie Baker MD #[address] [address] Medication Refill Social History Tobacco Use Types Packs/Day Years Used Date Smoking Tobacco: Former Cigarettes Q uit: 04/11/2019 Smokeless Tobacco: Former Alcohol Use Standard Drinks/Week Comments No 0 (1 standard drink = 0.6 oz pur e alcohol) Sexually Active Control Partners Comments Yes Female Sex and Gender Information Value Date Recorded Sex Assigned at Not on file Legal Sex Male 3:07 AM PUBLIC RELATIONS SALES MARKETING Gender Identity Not on file Sexual Orientation Not on file documented as of this encounter Miscellaneous Notes * Telephone Encounter - Raquel Bowling RN - 10/12/2021 8:21 AM CDT Medication warning Per nursing clinical judgement, provider to review and approve the medication(s) order(s) if appropriate. Requested Prescriptions Pending Prescriptions Disp Refills busPIRone (BUSPAR) 10 MG Tablet [Pharmacy Med Name: BUSPIRONE HCL 10 MG TABLET] 60 Tablet 2 Sig: TAKE 1 TABLET BY MOUTH TWICE A DAY Buspirone (6 Month Refill Only) Protocol Passed - 10/11/2021 7:38 PM Passed - Visit with relevant provider in past 6 months or upcoming 90 days Recent Visits Date Type Provider Dept 06/01/21 Office Visit Eddie Baker MD [facility] Showing recent visits within past 182 days and meeting all other requirements Future Appointments Date Type Provider Dept 10/24/21 Appointment Eddie Baker MD [facility] Showing [...] Short Acting Inhaled Beta-Agonists Protocol Passed - 10/11/2021 7:38 PM Passed - Visit with relevant provider in past 12 months or upcoming 90 days Recent Visits Date Type Provider Dept 06/01/21 Office Visit Eddie Baker MD [facility] 03/01/21 Office Visit Eddie Baker MD [facility] 10/25/20 Office Visit Eddie Baker MD [facility] Showing recent visits within past 365 days and meeting all other requirements Future Appointments Date Type Provider Dept 10/24/21 Appointment Eddie Baker MD [facility] Showing future appointments within next 90 days and meeting all other requirements * Telephone Encounter - Raquel Bowling RN - 10/12/2021 8:21 AM CDT Medication(s) [facility] Med[facility] Ref[facility] Standing Order for Pediatricand Adult Patients. Requested Prescriptions Pending Prescriptions Disp Refills ??? busPIRone (BUSPAR) 10 MG Tablet [Pharmacy Med Name: BUSPIRONE HCL 10 MG TABLET] 60 Tablet 2 Sig: TAKE 1 TABLET BY MOUTH TWICE A DAY Buspirone (6 Month Refill Only) Protocol Passed - 10/11/2021 7:38 PM Passed - Visit with relevant provider in past 6 months or upcoming 90 days Recent Visits Date Type Provider Dept 06/01/21 Office Visit Eddie Baker MD [facility] Showing recent visits within past 182 days and meeting all other requirements Future Appointments Date Type Provider Dept 10/24/21 Appointment Eddie Baker MD [facility] Showing future appointments within next 90 days and meeting all other requirements Passed - Has an encounter in the past 6 months with a depression or anxiety visit diagnosis Passed - Patient has established therapy with Buspirone for at least 6 months ??? albuterol 108 (90 Base) MCG/ACT Aerosol Solution [Pharmacy Med Name: ALBUTEROL HFA (VENTOLIN) INH] 18 g 2 Sig: INHALE 2 PUFFS BY MOUTH EVERY 4 HOURS Short Acting Inhaled Beta-Agonists Protocol Passed - 10/11/2021 7:38 PM Passed - Visit with relevant provider in past 12 months or upcoming 90 days Recent Visits Date Type Provider Dept 06/01/21 Office Visit Eddie Baker MD [facility] 03/01/21 Office Visit Eddie Baker MD [facility] 10/25/20 Office Visit Eddie Baker MD [facility] Showing recent visits within past 365 days and meeting all other requirements Future Appointments Date Type Provider Dept 10/24/21 Appointment Eddie Baker MD [facility] Showing future appointments within next 90 days and meeting all other requirements documented in this encounter Plan of Treatment Not on file documented as of this encounter Visit Diagnoses Not on filedocumented in this encounter Additional Health Concerns Infection Onset Date Last Indicated Resolved Time COVID - 19 04/04/2022 04/04/2022 04/04/2022 1:54 PM PUBLIC RELATIONS SALES MARKETING COVID - 19 04/04/2022 04/04/2022 04/14/2022 12:1 9 AM PUBLIC RELATIONS SALES MARKETING COVID - 19 10/22/2024 10/22/2024 10/22/2024 1:38 PM CDT documented as of this encounter Care Teams General Office Associate Relationship Specialty Start Date End Date Provider, None [place] PCP - General 08/02/21 10/18/21 Julio Gaston MD [place] PCP - General Internal Medicine 10/19/21 03/12/24 Rickie Aleman MD [address] [place] [address] [place] [address] PCP - General Collar Closer Lockstitch 03/13/24 documented as of this encounter
--- OUTSIDE RECORDS SUMMARY | 2024-12-03 11:49 | XMS_ITS | Encounter Summary ---
Author Organization [facility] Address [address] [place] [address] Care Team Providers Care Neuropsychiatrist Name Role Phone Antony Song MD Primary Care Provider [phone] Miscellaneous, Not In File Primary Care Provider Unavailable Antony Song MD Primary Care Provider [phone] Maurisio Sevilla MD Primary Care Provider [phone] Antony Song MD Unavailable [phone] Kevon Hogan MD Unavailable [phone] Eddie Baker MD Primary Care Provider [phone] Eddie Baker MD Primary Care Provider [phone] Julio Gaston MD Primary Care Provider [phone] Rosette Florence DO Unavailable [phone] Rusty Lam MD Unavailable [phone] Maria De Jesus Kaur PT Unavailable Unavailable Rickie Aleman MD Primary Care Provider [phone] Reason for Visit * Reason Onset Date Comments Scheduling Appointments 03/23/2020 confirme d hip injection Encounter Details Date Type Department Care Team (Late st Contact Info) Description 03/23/2020 Telephone [facility] [address] [place] [address] Paula Palma, Scheduling Appointments (confirmed hip injection ) Social History Tobacco Use Types Packs/Day Years Used Date Smoking Tobacco: Former Cigarettes Smokeless Tobacco: Never Alcohol Use Standard Drinks/Week Comments Not Currently 0 (1 standard drink = 0.6 oz pur e alcohol) Sex and Gender Information Value Date Recorded Sex Assigned at Not on file Legal Sex Male 1:38 AM ASSEMBLER DIELECTRIC HEATER Gender Identity Not on file Sexual Orientation Not on file documented as of this encounter Plan of Treatment Upcoming Encounters Date Type Department Care Team (Late st Contact Info) Description 12/04/2024 1:30 PM CDT Hospital Encounter [facility] [address] [place] [address] documented as of this encounter Visit Diagnoses Not on filedocumented in this encounter Additional Health Concerns Infection Onset Date Last Indicated Resolved Time COVID: Suspected 04/16/2020 04/16/2020 04/16/2020 6:01 AM ASSEMBLER DIELECTRIC HEATER Respiratory Infection (SUNIL), contact + droplet Comment:Automatically added due to negative COVID-19 result. 04/16/2020 04/16/2020 04/30/2020 3:0 6 AM ASSEMBLER DIELECTRIC HEATER COVID: Suspected 05/09/2021 05/09/2021 05/09/2021 8:54 AM ASSEMBLER DIELECTRIC HEATER COVID: Suspected 06/08/2021 06/08/2021 06/08/2021 2:16 PM ASSEMBLER DIELECTRIC HEATER COVID: Suspected 11/30/2021 11/30/2021 11/30/2021 11:57 PM CDT COVID: Suspected 04/17/2024 04/17/2024 04/17/2024 3:04 PM ASSEMBLER DIELECTRIC HEATER documented as of this encounter Care Teams Neuropsychiatrist Relationship Specialty Start Date End Date Antony Song MD PCP - General 08/11/16 03/20/21 Miscellaneous, Not In File PCP - General 03/21/21 03/21/21 Antony Song MD PCP - General 03/22/21 05/08/21 Maurisio Sevilla MD [address] [place] [address] PCP - General 05/09/21 05/25/21 Eddie Baker MD 2 [facility] [place] [address] [address] PCP - General Family Medicine 05/26/21 06/19/21 Eddie Baker MD 2 [facility] [address] [address] PCP - General Family Medicine 06/20/21 09/22/21 Julio Gaston MD [address] [address] PCP - General Internal Medicine 09/23/21 01/27/24 Rickie Aleman MD 2 [facility] [address] [facility]note 3] [place] [address] PCP - General Family Medicine 01/28/24 Antony Song MD 05/09/21 09/22/21 Kevon Hogan MD [address] [place] [address] Surgeon Orthopedic Surgery 03/23/21 Rosette Florence DO [address] [facility] [place] [address] Consulting Physician Internal Medicine 12/03/21 Rusty Lam MD [address] [facility] [place] [address] Consulting Physician Cardiology 12/15/21 Maria De Jesus Kaur, PT Physical Therapist Physical Therapy 01/03/22 documented as of this encounter
--- OUTSIDE RECORDS SUMMARY | 2024-12-03 11:49 | XMS_ITS | Encounter Summary ---
Author Organization [facility] Address [address] [place] [address] Phone Care Team Providers Care Horse Breeder Name Role Phone Eddie Baker MD Primary Care Provider [phone] Provider, None Primary Care Provider Julio Small MD Primary Care Provider [phone] Rickie Aleman MD Primary Care Provider [phone] Reason for Visit * Reason Comments Medication Refill Encounter Details Date Type Department Care Team (Late st Contact Info) Description 06/28/[address] [facility] - [facility] Medicine [facility] #2 [place] [address] Eddie Baker MD #[address] [address] Medication Refill Social History Tobacco Use Types Packs/Day Years Used Date Smoking Tobacco: Former Cigarettes Q uit: 04/11/2019 Smokeless Tobacco: Former Alcohol Use Standard Drinks/Week Comments No 0 (1 standard drink = 0.6 oz pur e alcohol) Sexually Active Control Partners Comments Yes Female Sex and Gender Information Value Date Recorded Sex Assigned at Not on file Legal Sex Male 3:07 AM SEATER ASSEMBLER Gender Identity Not on file Sexual Orientation Not on file COVID-19 Exposure Response Date Recorded In the last month, have you been in contact with someone who was confirmed or suspected to have Coronavirus / COVID-19? No / Unsure 06/15/2020 9:58 AM SEATER ASSEMBLER documented as of this encounter Miscellaneous Notes * Telephone Encounter - Karyna Tovar RN - 06/30/2020 8:30 AM CST Per nursing clinical judgement, provider to review and approve the medication(s) order(s) if appropriate. Requested Prescriptions Pending Prescriptions Disp Refills meloxicam (MOBIC) 15 MG Tablet [Pharmacy Med Name: MELOXICAM 15 MG TABLET] 30 Tablet Sig: TAKE 1 TABLET BY MOUTH EVERY DAY WITH FOOD Analgesics: COX2 Inhibitors Passed - 06/28/2020 2:12 PM Passed - Valid encounter within last 6 months Past Office Visits Recent Outpatient Visits 1 month ago Centrilobular emphysema (HCC) [facility] - Harley Kinney APN, AYUSH 1 month ago COPD with acute exacerbation (HCC) [facility] Harley Kinney APN, AYUSH 2 months ago [facility] bronchitis, unspecified [facility]ments Future Appointments In 3 weeks [facility] Martha Kim APN, CNP [facility]ULMON[facility], [facility] RETURNS SUPERVISOR - Recent and Past Visits Recent Visits Date Type Provider Dept 05/28/20 Office Visit Harley Segundo APN, CNP [facility] 05/04/20 Telemedicine Harley Segundo APN, CNP [facility] 04/19/20 Office Visit Eddie Baker MD [facility] Showing recent visits within past 460 days with a meds authorizing provider and meeting all other requirements Future Appointments Date Type Provider Dept 07/22/20 Appointment Eddie Baker MD [facility] Showing future appointments within next 90 days with a meds authorizing provider and meeting all other requirements ER ASSEMBLER documented in this encounter Plan of Treatment Not on file documented as of this encounter Visit Diagnoses Not on filedocumented in this encounter Additional Health Concerns Infection Onset Date Last Indicated Resolved Time COVID - 19 04/08/2021 04/08/2021 04/28/2021 12:1 6 AM SEATER ASSEMBLER COVID - 19 04/04/2022 04/04/2022 04/04/2022 1:54 PM SEATER ASSEMBLER COVID - 19 04/04/2022 04/04/2022 04/14/2022 12:1 9 AM SEATER ASSEMBLER COVID - 19 10/22/2024 10/22/2024 10/22/2024 1:38 PM CDT documented as of this encounter Care Teams Horse Breeder Relationship Specialty Start Date End Date Eddie Baker MD #2 [facility] [address] [place] [address] PCP - General Family Medicine 04/16/20 08/01/21 Provider, None [place] PCP - General 08/02/21 10/18/21 Julio Gaston MD [place] PCP - General Internal Medicine 10/19/21 03/12/24 Rickie Aleman MD 2 [facility] [address] [place] [address] PCP - General Truck Trailer Mechanic 03/13/24 documented as of this encounter
--- OUTSIDE RECORDS SUMMARY | 2024-12-03 11:49 | XMS_ITS | Encounter Summary ---
Author Organization [facility] Address [address] [place] [address] Phone Care Team Providers Care Acetylene Cutter Name Role Phone Eddie Baker MD Primary Care Provider [phone] Provider, None Primary Care Provider Julio Small MD Primary Care Provider [phone] Rickie Aleman MD Primary Care Provider [phone] Reason for Visit * Reason Comments Medication Refill Encounter Details Date Type Department Care Team (Late st Contact Info) Description 09/28/2020 Refill [facility] - Family Medicine [facility] #2 [place] [address] Eddie Baker MD #[address] [address] Medication Refill Social History Tobacco Use Types Packs/Day Years Used Date Smoking Tobacco: Former Cigarettes Q uit: 04/11/2019 Smokeless Tobacco: Former Alcohol Use Standard Drinks/Week Comments No 0 (1 standard drink = 0.6 oz pur e alcohol) Sexually Active Control Partners Comments Yes Female Sex and Gender Information Value Date Recorded Sex Assigned at Not on file Legal Sex Male 3:07 AM ELECTRONICS INSTALLER Gender Identity Not on file Sexual Orientation Not on file COVID-19 Exposure Response Date Recorded In the last month, have you been in contact with someone who was confirmed or suspected to have Coronavirus / COVID-19? No / Unsure 09/28/2020 8:23 AM CDT documented as of this encounter Miscellaneous Notes * Telephone Encounter - Karyna Tovar RN - 09/28/2020 3:59 PM CDT Patient went to ER today and a steroid was ordered documented in this encounter Plan of Treatment Not on file documented as of this encounter Visit Diagnoses Diagnosis Centrilobular emphysema (HCC) Other emphysema documented in this encounter Additional Health Concerns Infection Onset Date Last Indicated Resolved Time COVID - 19 04/08/2021 04/08/2021 04/28/2021 12:1 6 AM ELECTRONICS INSTALLER COVID - 19 04/04/2022 04/04/2022 04/04/2022 1:54 PM ELECTRONICS INSTALLER COVID - 19 04/04/2022 04/04/2022 04/14/2022 12:1 9 AM ELECTRONICS INSTALLER COVID - 19 10/22/2024 10/22/2024 10/22/2024 1:38 PM CDT documented as of this encounter Care Teams Acetylene Cutter Relationship Specialty Start Date End Date Eddie Baker MD #[address] [address] PCP - General Family Medicine 04/16/20 08/01/21 Provider, None [place] PCP - General 08/02/21 10/18/21 Julio Gaston MD [place] PCP - General Internal Medicine 10/19/21 03/12/24 Rickie Aleman MD [address] [place] [address] [place] [address] [place], [place] [address], [place] [address] PCP - General Book Sewing Machine Operator 03/13/24 documented as of this encounter
--- OUTSIDE RECORDS SUMMARY | 2024-12-03 11:49 | XMS_ITS | Encounter Summary ---
Author Organization [facility] Address [address] [place] [address] Phone Care Team Providers Care Medicine Tech Name Role Phone Julio Gaston MD Primary Care Provider [phone] Rickie Aleman MD Primary Care Provider [phone] Reason for Visit * Reason Comments Medication Refill Encounter Details Date Type Department Care Team (Late st Contact Info) Description 10/19/2022 Refill [facility] #2 [place] [address] Eddie Baker MD #[address] [address] Medication Refill Social History Tobacco Use Types Packs/Day Years Used Date Smoking Tobacco: Former Cigarettes Q uit: 04/11/2019 Smokeless Tobacco: Former Alcohol Use Standard Drinks/Week Comments No 0 (1 standard drink = 0.6 oz pur e alcohol) Sexually Active Control Partners Comments Yes Female Sex and Gender Information Value Date Recorded Sex Assigned at Not on file Legal Sex Male 3:07 AM DOG SITTER Gender Identity Not on file Sexual Orientation Not on file documented as of this encounter Miscellaneous Notes * Telephone Encounter - Karyna Tovar RN - 10/19/2022 5:17 PM CDT PCP Julio Gaston MD documented in this encounter Plan of Treatment Not on file documented as of this encounter Visit Diagnoses Not on filedocumented in this encounter Additional Health Concerns Infection Onset Date Last Indicated Resolved Time COVID - 19 10/22/2024 10/22/2024 10/22/2024 1:38 PM CDT documented as of this encounter Care Teams Medicine Tech Relationship Specialty Start Date End Date Julio Gaston MD PCP - General Internal Medicine 10/19/21 03/12/24 Rickie Aleman MD [address] [place] [address] [address] PCP - General Telecommunication Lines Repairer 03/13/24 documented as of this encounter
--- OUTSIDE RECORDS SUMMARY | 2024-12-03 11:50 | XMS_ITS | Patient Health Record ---
Author Organization [employer] [facility] [employer] ([address]) Address [address] [place] [address] Care Team Providers Care Adjunct Philosophy Faculty Name Role Phone Julio Gaston Primary Care Provider Dr. Ruslan Cardoza Unavailable [phone] Esme Combs Unavailable [phone] Allergies Allergen (clinical drug ingredient) Drug/Non Drug Allergy documented on EMR Reaction Allergy Type Onset Date Status codeine Codeine stomach upset Drug Allergy Act marianne Reason For Referral No Information Medications Medication SIG (Take, Route, Frequency, Duration) Notes Start Date End Date Status ALBUTEROL Active Aspirin 81 MG 1 tab(s) orally once a day Active Atorvastatin Calcium *Please rev iew and pick correct strength-formulatio n from Medispan options. If intended option is not shown, discontinue and re-order from Quick Search* Active Furosemide 20 MG 1 tab(s) orally once a day Active Carvedilol *Please review a nd pick correct strength-formulatio n from Medispan options. If intended option is not shown, discontinue and re-order from Quick Search* Active busPIRone HCl *Please review a nd pick correct strength-formulatio n from Medispan options. If intended option is not shown, discontinue and re-order from Quick Search* Active Albuterol Sulfate *Please review and pick correct strength-formulatio n from [employer] options. If intended option is not shown, discontinue and re-order from Quick Search* Active FUROSEMIDE 20 mg 1 tab(s) orally once a day Active Amitriptyline HCl 10 MG 2 tabs at bedtime orally as directed; Duration: 30 days 06/28/2023 Active ASPIRIN 81 mg 1 tab(s) orally once a day Active ATORVASTATIN Active CARVEDILOL Active BUSPIRONE Active Problems Problem Type SNOMED Code ICD Code Onset Dates Problem Status W/U Status Risk Notes Problem Postconcussion syndrome (36718107) Postconcussional syndrome (F07.81) Active confirmed Problem Essential tremor (631913581) Essential tremor (G25.0) Active confirmed Problem Chronic migraine without aura, non-refractory (disorder) (537818668887143) Migraine without aura, not intractable, without status migrainosus (G43.009) Active confirmed Problem Migraine with aura (6423600) Migraine with aura, not intractable, without status migrainosus (G43.109) Active confirmed Problem Chronic migraine without aura, non-intractable (288568802398453) Chronic migraine without aura, not intractable, without status migrainosus (G43.709) Active confirmed Problem Posttraumatic headache (63826812) Post-traumatic headache, unspecified, not intractable (G44.309) Active confirmed Problem Degeneration of cervical intervertebral disc (98542118) Other cervical disc degeneration, unspecified cervical region (M50.30) Active confirmed Problem Dizziness and giddiness (786457473) Dizziness and giddiness (R42) Active confirmed Problem Imaging of brain abnormal (011270630) Abnormal brain scan (R94.02) Active confirmed Problem 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 levels, sequela (S06.2X5S) Active confirmed Problem Cervicogenic headache (312832571) Cervicogenic headache (G44.86) Active confirmed Encounters Encounter Location Date Provider Diagnosis [facility] [address] [facility] [address] [place] [address] 04/17/2024 Esme Combs Postconcussional syndrome F07.81 ; Diffuse traumatic brain injury with loss of consciousness greater than 24 hours with return to pre-existing conscious levels, sequela S06.2X5S ; Dizziness and giddiness R42 ; Post-traumatic headache, unspecified, not intractable G44.309 ; Cervicogenic headache G44.86 ; Other cervical disc degeneration, unspecified cervical region M50.30 ; Essential tremor G25.0 and Abnormal brain scan R94.[address] [address] 12/05/2023 Ruslan Wheeler Post-traumatic headache, unspecified, not intractable G44.309 [facility] [address] [place] [address] 03/24/2024 Ruslan Wheeler Post-traumatic headache, unspecified, not intractable G44.[address] [address] 06/10/2024 Esme Combs Post-traumatic headache, unspecified, not intractable G44.309 Assessments Encounter Date Diagnosis (ICD Code) Assessment Notes Treatment Notes Treatment Clinical Notes Section Notes 12/05/2023 Post-traumatic headache, unspecified, not intractable (ICD-10 - G44.309) 03/24/2024 Post-traumatic headache, unspecified, not intractable (ICD-10 - G44.309) 04/17/2024 Postconcussional syndrome (ICD-10 - F07.81) Clinically, [...] recommend carotid doppler screening and a 30-day color television console monitor to evaluate for asymptomatic PAFib, as well [...] recommend carotid doppler screening and a 30-day color television console monitor to evaluate for asymptomatic PAFib, as well as vascular risk reduction 06/10/2024 Post-traumatic headache, unspecified, not intractable (ICD-10 - G44.309) 04/17/2024 Dizziness and giddiness (ICD-10 - R42) [...] recommend carotid doppler screening and a 30-day color television console monitor to evaluate for asymptomatic PAFib, as well [...] recommend carotid doppler screening and a 30-day color television console monitor to evaluate for asymptomatic PAFib, as well [...] recommend carotid doppler screening and a 30-day color television console monitor to evaluate for asymptomatic PAFib, as well [...] recommend carotid doppler screening and a 30-day color television console monitor to evaluate for asymptomatic PAFib, as well [...] recommend carotid doppler screening and a 30-day color television console monitor to evaluate for asymptomatic PAFib, as well [...] recommend carotid doppler screening and a 30-day color television console monitor to evaluate for asymptomatic PAFib, as well as vascular risk reduction Plan Of Treatment No Information Insurance Providers Payer Name Payer Address Payer Phone Subscriber Number Group Number Insured Name Patient Relationship to Insured Coverage Start Date Coverage End Date [employer] [address] [address] [place] [address] [id number] Jaron Stoddard Self - patient is the insured 4 Medical (General) History Medical History History ICD Code Obesity DM2 HLD HTN CAD COPD SHONDA on BiPAP AAA OA Cervical DDD mTBI as above Surgical History Surgery Date(Month/Year) R TKA L TKA L MECCA
== END 2024-12-03 11:44 | disposition home or self-care (01) ==
PROVIDERS: Visit Provider Orthopaedic Surgery
DX: S46.011A Strain of muscle(s) and tendon(s) of the rotator cuff of right shoulder, initial encounter (principal); S46.012A Strain of muscle(s) and tendon(s) of the rotator cuff of left shoulder, initial encounter; X58.XXXA Exposure to other specified factors, initial encounter
CPT/HCPCS: 73030